=== PATIENT | male | born 1960 | race Caucasian/White ===

== ENCOUNTER 2018-07-27 16:50 | Inpatient (IN) | END 2018-07-30 16:55 | disposition home or self-care (01) | DRG 871 ==

== ENCOUNTER 2018-12-12 04:46 | Inpatient (IN) | payer MEDICARE, OTHER ==
[~2018-12-12] VITALS: Ht 182.9 cm; Wt 95.4 kg
[2018-12-12] VITALS (25 sets, daily range): BP systolic 108–151; BP diastolic 62–91; PULSE 65–84; RESP 22–24
[~2018-12-12 04:46] MED LIST: ADV25050 INHALATION; ALBU18HF INHALATION; ASPI-903 PO; ATEN50TA PO; ATOR10TA65 PO; GABA300C16 PO; HYDR-3672 PO; LEVO500T10 PO; LOSA50TA14 PO; OXYC40TA26 PO; PRED20TA PO
[2018-12-12] MEDS ORDERED: PROPOFOL 100 ML ONE (04:58)
[2018-12-12] MEDS ORDERED: HYDROmorphONE 0.5 MG/0.5 ML SYG IV STA (05:01)
--- NOTE | 2018-12-12 05:07 | ERD ---
ER Documentation Chief Complaint Chief Complaint sob HPI The patient is a 58-year-old male, he has acute dyspnea about 30 minutes prior to arrival. He is unable to provide any history, the history initially obtained from the conveyor console operator. He is unarousable, unable to protect his airway I was able to talk to the who came to the ER later. He is being treated for liposarcoma at [facility], had the second treatment about 3 weeks ago. He has not been sick. He woke up and had trouble breathing; therefore the called 911. He smokes and does use oxygen as needed at home Past medical history: Hypertension, dyslipidemia, COPD, liposarcoma Past surgical history: Port-A-Cath ROS All systems reviewed and are negative except as per history of present illness. Medications Home Meds Active Scripts Hydralazine Hcl* (Apresoline*) 50 Mg Tab, 50 MG PO Q8, #90 TAB Prov:TERA GREEN 07/30/18 Prednisone* (Prednisone*) 20 Mg Tab, 40 MG PO DAILY for 5 Days, TAB Prov:TERA GREEN 07/30/18 Levofloxacin* (Levofloxacin*) 500 Mg Tablet, 500 MG PO DAILY for 7 Days, TAB Prov:TERA GREEN 07/30/18 Reported Medications Atorvastatin Calcium (Atorvastatin Calcium) 10 Mg Tablet, 10 MG PO QHS, #30 TAB 07/27/18 Salmeterol Xinaf/Fluticasone* (Advair*) 250-50 Diskus Inhaler, 1 INH INHALATION BID, #1 INHALER 07/27/18 Albuterol Sulfate* (Ventolin HFA*) 18 Gm Hfa.aer.ad, 2 PUFF INHALATION Q6H PRN for WHEEZING AND SOB, #1 INHALER 07/27/18 Aspirin* (Aspirin* Chew) 81 Mg Tab.chew, 81 MG PO DAILY, TAB.CHEW 07/27/18 Gabapentin* (Gabapentin*) 300 Mg Capsule, 600 MG PO QID, #180 CAP 07/27/18 Oxycodone Hcl* (Oxycontin*) 40 Mg Tab.er.12h, 40 MG PO Q12 PRN for SEVERE PAIN LEVEL 7-10, TAB 07/27/18 Atenolol* (Atenolol*) 50 Mg Tablet, 50 MG PO BID, #30 TAB 07/27/18 Losartan Potassium* (Losartan Potassium*) 50 Mg Tablet, 50 MG PO BID, TAB 07/27/18 Allergies Allergies: Coded Allergies: ertapenem (Verified Allergy, Intermediate, rash, 07/27/18) oxacillin (Verified Allergy, Intermediate, rash, 07/27/18) sulfamethoxazole (Verified Allergy, Intermediate, rash, 07/27/18) trimethoprim (Verified Allergy, Intermediate, rash, 07/27/18) PMhx/Soc History of Surgery: Yes (LUNG SX AND 4 RIBS REMOVED) Anesthesia Reaction: No Hx Neurological Disorder: No Hx Respiratory Disorders: Yes (COPD) Hx Cardiac Disorders: Yes (HTN) Hx Psychiatric Problems: No Hx Miscellaneous Medical Probl: Yes (LYMPHOSARCOMA) Hx Alcohol Use: No Hx Tobacco Use: Yes (CIGARETTES 1 PACK/DAY 2 DAYS AGO) Physical Exam Vitals Vital Signs Date Temp Pulse Resp B/P (MAP) Pulse Ox O2 O2 Flow FiO2 Time Delivery Rate 12/12/18 79 13 211/124 100 Mechanical 05:40 (153) Ventilator 12/12/18 98.6 78 20 224/128 100 Mechanical 05:38 (160) Ventilator 12/12/18 120 20 100 100 05:10 12/12/18 98.6 120 16 255/142 100 Mechanical 05:07 (179) Ventilator 12/12/18 122 22 255/142 100 05:07 (179) Physical Exam Const: Acute respiratory distress. Head: Atraumatic. Eyes: Normal Conjunctiva. ENT: Normal External Ears, Nose and Mouth. Neck: Full range of motion. No meningismus. Resp: Tachypneic, clear to auscultation anterior and lateral Cardio: Regular rate and rhythm Abd: Soft, non distended, normal bowel sounds, non tender. Skin: No petechiae or rashes. Back: No midline or flank tenderness. Ext: No cyanosis, or edema. Neur: Unable to perform due to his condition Psych: Unable to perform due to his condition. Result Diagram: 12/12/18 0504 12/12/18 0504 Results 24 hrs Laboratory Tests Test 12/12/18 04:53 12/12/18 05:04 12/12/18 05:08 12/12/18 05:19 Bedside Glucose 154 mg/dL White Blood Count 9.2 10^3/ul Red Blood Count 5.07 10^6/ul Hemoglobin 12.4 g/dl Hematocrit 40.6 % Mean Corpuscular 80.1 fl Volume Mean Corpuscular 24.5 pg Hemoglobin Mean Corpuscular 30.5 g/dl Hemoglobin Concent Red Cell 17.1 % Distribution Width Platelet Count 211 10^3/UL Mean Platelet 9.5 fl Volume Immature 0.700 % Granulocytes % Neutrophils % 52.2 % Lymphocytes % 39.8 % Monocytes % 6.0 % Eosinophils % 1.1 % Basophils % 0.2 % Nucleated Red Blood 0.0 /100WBC Cells % Immature 0.060 10^3/ul Granulocytes # Neutrophils # 4.8 10^3/ul Lymphocytes # 3.7 10^3/ul Monocytes # 0.6 10^3/ul Eosinophils # 0.1 10^3/ul Basophils # 0.0 10^3/ul Nucleated Red Blood 0.0 10^3/ul Cells # Sodium Level 144 mmol/L Potassium Level 4.1 mmol/L Chloride Level 102 mmol/L Carbon Dioxide 32 mmol/L Level Anion Gap 10 Blood Urea Nitrogen 14 mg/dl Creatinine 0.93 mg/dl Est Glomerular > 60 mL/min Filtrat Rate mL/min Glucose Level 164 mg/dl Calcium Level 8.6 mg/dl Total Bilirubin 0.5 mg/dl Direct Bilirubin 0.00 mg/dl Indirect Bilirubin 0.5 mg/dl Aspartate Amino 117 IU/L Transf (AST/SGOT) Alanine 318 IU/L Aminotransferase (A LT/SGPT) Alkaline 80 IU/L Phosphatase Troponin I Pending Total Protein 7.3 g/dl Albumin 4.2 g/dl Globulin 3.10 g/dl Albumin/Globulin 1.35 Ratio POC Venous Lactate 1.2 mmol/L Urine Color YELLOW Urine Clarity CLEAR Urine pH 7.0 Urine Specific 1.009 [place] Urine Ketones NEGATIVE mg/dL Urine Nitrite NEGATIVE mg/dL Urine Bilirubin NEGATIVE mg/dL Urine Urobilinogen 1+ mg/dL Urine Leukocyte NEGATIVE Janay/ul Esterase Urine Microscopic 12 /HPF RBC Urine Microscopic 2 /HPF WBC Urine Hemoglobin 1+ mg/dL Urine Glucose NEGATIVE mg/dL Urine Total Protein 2+ mg/dl Current Medications Medications Dose Sig/Jing Start Time Status Last (Trade) Ordered Route PRN Stop Time Admin Dose Reason Admin Etomidate 30 mg ONCE ONCE 12/12/18 DC 12/12/18 (Amidate) IV 05:30 12/12/18 04:54 05:31 Rocuronium 80 mg ONCE ONCE 12/12/18 DC 12/12/18 [place] IV 05:30 12/12/18 04:54 (Zemuron) 05:31 Propofol 100 ml @ 0 TITRATE 12/12/18 DC 12/12/18 mls/hr ONCE IV 05:30 12/12/18 05:10 05:31 1 mg ONCE STAT 12/12/18 DC 12/12/18 Hydromorphone IV 05:01 12/12/18 05:20 HCl 05:05 (Dilaudid) Nicardipine 200 ml @ TITRATE IV 12/12/18 HCl 50 mls/hr 06:00 Piperacillin 100 ml @ ONCE ONCE 12/12/18 12/12/18 Sod/ 200 mls/hr IVPB 06:00 12/12/18 05:55 Tazobactam 06:29 Sod Vancomycin 250 ml @ ONCE ONCE 12/12/18 HCl 125 mls/hr IVPB 06:00 12/12/18 07:59 Procedures/[place] [id number] Radiology Main Line: [phone] DIAGNOSTIC IMAGING REPORT Patient: CARLTON CHAN : 1960 Age: 58 Sex: M MR #: [id number] DOS: 12/12/18 0501 Ordering MD: JULIA RAHMAN MD Location: E/R Room/Bed: PROCEDURE: XR Chest. CLINICAL INDICATION: Sepsis TECHNIQUE: AP Portable chest. COMPARISON: CHEST 07/27/2018 FINDINGS: The ET tube is 4 cm above the vick. The right port catheter is in the right atrium. The cardiomediastinal silhouette is enlarged and deviated to the right. The aorta is calcified and tortuous. Moderate right pleural effusion, and bilateral reticular nodular densities appear increased. No pneumothorax is identified. The osseous structures are intact. IMPRESSION: ET tube and right port catheter in place. Increase moderate right pleural effusion, basilar consolidation or atelectasis and bilateral nodular interstitial infiltrates. [facility] Physician Miguel Angel Date Time Electronically viewed and signed by Physician Miguel Angel on 12/12/2018 05:42 CS/ CC: JULIA RAHMAN MD [id number] brain CT/ chest CTA pending Endotracheal Intubation by me: Pre assessment performed. See preceding note for details. Pre-oxygenation performed with 100% oxygen RSI: Performed w/o complication or hypoxic events. Medications as ordered. Blade: MAC ET Tube: 7.5 cm Depth: 23 cm at the lip Intubation confirmed by colorimetric CO2, equal breath sounds, quiet over the stomach. MEDICAL MAKING DECISION: The patient is a 58-year-old male, presenting with acute respiratory failure, acute pneumonia, acute right pleural effusion. He was admitted intubated with any difficulty on first attempt. He was sedated with etomidate 30 mg IV and paralyzed with rocuronium 80 mg IV and intubated without any difficulty. He was treated with propofol drip for sedation, Dilaudid 1 mg IV for pain, NG tube, Shields, Zosyn IV and vancomycin IV for acute pneumonia. Blood pressure improved with the aforementioned treatment The differential diagnoses considered include but are not limited to intracranial pathology, pulmonary embolism, ptx, aspiration pneumonia, hypertensive encephalopathy Critical Care: Time: 35 minutes excluding all billable procedures. Treatments/Evaluations: Close monitoring and treatment of unstable vital s igns, cardiorespiratory, and neurologic status, while maintaining tight balance of fluid, respiratory, and cardiac interventions. Departure Diagnosis: Primary Impression: Respiratory failure, acute Additional Impressions: PNA (pneumonia) Pleural effusion, right Condition: Critical Comments I discussed the findings with the patient. I discussed the patient with his phys ician Dr Vick who was made aware of the lab, the treatment, the patient condition, pending chest CTA. The patient is admitted to ICU Disclaimer: Inadvertent spelling and grammatical errors are likely due to EHR/dictation software use and do not reflect on the overall quality of patient care. Also, please note that the electronic time recorded on this note does not necessarily reflect the actual time of the patient encounter. JULIA RAHMAN MD Dec 12, 2018 05:07
[2018-12-12] MEDS ORDERED: ROCURONIUM 50 MG INJ IV ONE (05:30)
[2018-12-12] MEDS ORDERED: PROPOFOL 100 ML IV ONE (05:30)
[2018-12-12] MEDS ORDERED: ETOMIDATE 20 MG INJ IV ONE (05:30)
[2018-12-12] MEDS: niCARdipine-NS 0.1MG/ML DRIP 200 ML IV SCH (05:58)
[2018-12-12] MEDS ORDERED: PIPER-TAZO 3.375 GM IV (PMX) 100 ML IVPB ONE (06:00)
[2018-12-12] MEDS ORDERED: VANCOMYCIN 1 GM (PMX) 250 ML IVPB ONE (06:00)
[2018-12-12] MEDS ORDERED: IOHEXOL 300MG/ML 150 ML BTL ONE (06:01)
[2018-12-12] MEDS ORDERED: SOD CHLORIDE 0.9% 100 ML ONE (06:01)
[2018-12-12] MEDS ORDERED: ETOMIDATE 20 MG INJ ONE (07:00)
[2018-12-12] MEDS: PROPOFOL 100 ML IV SCH ×5 (08:46→20:26)
--- NOTE | 2018-12-12 09:07 | CONS ---
Assessment/Plan Assessment/Plan Assessment/Plan (Daily) Chest x-ray showing bilateral pneumonia Patient is currently on AC of 24, tidal volume 500, PEEP of 5, 35% FiO2. Propofol at 50 mics per kilogram per minute. Assessment recommendations; 1. Patient admitted with hypoxemic and hypercapnic respiratory failure with bilateral pneumonia with possibility of underlying COPD as well. 2. History of liposarcoma with possibly relapse, currently on chemotherapy per record. 3. History of hypertension. Continue current supportive care. Continue current antibiotics. Add Protonix and Lovenox for GI and DVT prophylaxis respectively. Obtain follow-up chest x- ray 24 hours. We will start tube feeding. Prognosis is guarded. 40 minutes of critical care time was spent evaluating the patient. Consultation Date/Type/Reason Admit Date/Time Dec 12, 2018 at 06:34 Date of Consultation: Dec 12, 2018 Type of Consult Pulmonary/critical care Patient is a 58-year-old male who was brought into the hospital with shortness of breath. Patient was found to be in respiratory failure and had to be intubated by the ER physician. However no CPR was performed. By the time I saw him, patient is orally intubated and sedated. Did not appear to be in any distress. History has been obtained from medical records. Past medical history; 1. 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 It is unclear if the patient has had a recurrence. Apparently patient is currently on chemotherapy. 2. History of COPD 3. History of hypertension. Medications; reviewed. Allergies; as outlined above. Social history; history of smoking. Family history; not available. Occupational history; not available. Review of system; unable to be obtained. General exam; middle-aged male, orally intubated, sedated, currently in no distress. Date/Time of Note DATE: 12/12/18 TIME: 09:04 Past Medical History Home Meds Active Scripts Hydralazine Hcl* (Apresoline*) 50 Mg Tab, 50 MG PO Q8, #90 TAB Prov:TERA GREEN 07/30/18 Prednisone* (Prednisone*) 20 Mg Tab, 40 MG PO DAILY for 5 Days, TAB Prov:TERA GREEN 07/30/18 Levofloxacin* (Levofloxacin*) 500 Mg Tablet, 500 MG PO DAILY for 7 Days, TAB Prov:TERA GREEN 07/30/18 Reported Medications Atorvastatin Calcium (Atorvastatin Calcium) 10 Mg Tablet, 10 MG PO QHS, #30 TAB 07/27/18 Salmeterol Xinaf/Fluticasone* (Advair*) 250-50 Diskus Inhaler, 1 INH INHALATION BID, #1 INHALER 07/27/18 Albuterol Sulfate* (Ventolin HFA*) 18 Gm Hfa.aer.ad, 2 PUFF INHALATION Q6H PRN for WHEEZING AND SOB, #1 INHALER 07/27/18 Aspirin* (Aspirin* Chew) 81 Mg Tab.chew, 81 MG PO DAILY, TAB.CHEW 07/27/18 Gabapentin* (Gabapentin*) 300 Mg Capsule, 600 MG PO QID, #180 CAP 07/27/18 Oxycodone Hcl* (Oxycontin*) 40 Mg Tab.er.12h, 40 MG PO Q12 PRN for SEVERE PAIN LEVEL 7-10, TAB 07/27/18 Atenolol* (Atenolol*) 50 Mg Tablet, 50 MG PO BID, #30 TAB 07/27/18 Losartan Potassium* (Losartan Potassium*) 50 Mg Tablet, 50 MG PO BID, TAB 07/27/18 Medications Current Medications Nicardipine HCl 200 ml @ 50 mls/hr TITRATE IV ; Start 12/12/18 at 06:00 Fentanyl 100 ml @ 2.5 mls/hr TITRATE IV ; Start 12/12/18 at 08:30 Propofol 100 ml @ 2.864 mls/ hr Q12H IV Last administered on 12/12/18at 08:46; Admin Dose 28.635 MLS/HR; Start 12/12/18 at 09:00 Enoxaparin Sodium (Lovenox) 30 mg DAILY SC ; Start 12/12/18 at 09:00; Status UNV Pantoprazole (Protonix Iv) 40 mg DAILY@06 IV ; Start 12/13/18 at 06:00; Status UNV Allergies: Coded Allergies: ertapenem (Verified Allergy, Intermediate, rash, 07/27/18) oxacillin (Verified Allergy, Intermediate, rash, 07/27/18) sulfamethoxazole (Verified Allergy, Intermediate, rash, 07/27/18) trimethoprim (Verified Allergy, Intermediate, rash, 07/27/18) Social History Smoking Status: Current every day smoker Exam/Review of Systems Exam Vitals Vital Signs Date Temp Pulse Resp B/P (MAP) Pulse Ox O2 O2 Flow FiO2 Time Delivery Rate 12/12/18 35 08:30 12/12/18 98.4 67 24 114/64 100 Mechanical 08:30 (81) Ventilator Intake and Output 12/11/18 12/11/18 12/12/18 1515:00 23:00 07:00 IntakeIntake Total 100 ml BalanceBalance 100 ml Exam HEENT exam; supple neck, no JVD. No lymphadenopathy. Midline trachea. No thyromegaly. Orally intubated. Patient has fair dentition. Chest exam; diminished breath sounds bilaterally. S1-S2 audible, no murmurs. Regular rhythm. There is a well-healed right thoracotomy scar. Abdomen exam; soft, nondistended. No organomegaly. Bowel sounds audible. Extremity exam; no peripheral edema clubbing. Pulses 1+. 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 Results Result Diagram: 12/12/18 0504 12/12/18 0504 Results 24hrs Laboratory Tests Test 12/12/18 04:53 12/12/18 05:04 12/12/18 05:08 12/12/18 05:19 Bedside Glucose 154 White Blood Count 9.2 # Red Blood Count 5.07 Hemoglobin 12.4 L Hematocrit 40.6 L Mean Corpuscular 80.1 L Volume Mean Corpuscular 24.5 L Hemoglobin Mean Corpuscular 30.5 L Hemoglobin Concent Red Cell 17.1 H Distribution Width Platelet Count 211 Mean Platelet 9.5 Volume Immature 0.700 H Granulocytes % Neutrophils % 52.2 Lymphocytes % 39.8 Monocytes % 6.0 Eosinophils % 1.1 Basophils % 0.2 Nucleated Red 0.0 Blood Cells % Immature 0.060 H Granulocytes # Neutrophils # 4.8 Lymphocytes # 3.7 H Monocytes # 0.6 Eosinophils # 0.1 Basophils # 0.0 Nucleated Red 0.0 Blood Cells # Prothrombin Time 12.7 Prothrombin Time 1.0 Ratio INR International 0.94 Normalized Ratio Activated 29.[address] Time Sodium Level 144 Potassium Level 4.1 Chloride Level 102 Carbon Dioxide 32 H Level Anion Gap 10 Blood Urea 14 Nitrogen Creatinine 0.93 Est Glomerular > 60 Filtrat Rate mL/min Glucose Level 164 Calcium Level 8.6 Total Bilirubin 0.5 Direct Bilirubin 0.00 Indirect Bilirubin 0.5 Aspartate Amino 117 H Transf (AST/SGOT) Alanine 318 H Aminotransferase ( ALT/SGPT) Alkaline 80 Phosphatase Troponin I 0.031 Total Protein 7.3 Albumin 4.2 Globulin 3.10 Albumin/Globulin 1.35 Ratio POC Venous Lactate 1.2 Urine Color YELLOW Urine Clarity CLEAR Urine pH 7.0 Urine Specific 1.009 [place] Urine Ketones NEGATIVE Urine Nitrite NEGATIVE Urine Bilirubin NEGATIVE Urine Urobilinogen 1+ H Urine Leukocyte NEGATIVE Esterase Urine Microscopic 12 H RBC Urine Microscopic 2 WBC Urine Hemoglobin 1+ H Urine Glucose NEGATIVE Urine Total 2+ H Protein Test 12/12/18 05:40 Blood Gas Specimen Blood arterial Source Arterial Blood 12/12/2018 6:00:51 Date Drawn AM Arterial Blood pH 7.294 *L (Temp corrected) Arterial Blood 62.5 H pCO2 (Temp correct) Arterial Blood pO2 369.6 H (Temp corrected) Arterial Blood 29.6 H HCO3 Arterial Blood 1.9 Base Excess Arterial Blood 99.3 H Oxygen Saturation Adrián Test ACCEPTAB Arterial Blood Gas Right Radial Puncture Site Arterial 0.5 Blood Carboxyhemog lobin Arterial Blood 0.3 Methemoglobin Blood Gas A-a O2 280.9 H Differential Oxyhemoglobin 98.5 Percent Blood Gas 37.0 Temperature Blood Gas 20.0 Respiration Rate Blood Gas Actual 20 Respiration Rate Blood Gas Modality VENT - AC FiO2 100.0 Blood Gas Tidal 500.0 Volume Blood Gas Low PEEP 3.0 Setting Blood Gas Critical Akanksha RAHMAN MD Value Read Back Blood Gas Notified Whom Blood Gas Notified 12/12/2018 6:06:29 Time AM Medications Medication Current Medications Nicardipine HCl 200 ml @ 50 mls/hr TITRATE IV ; Start 12/12/18 at 06:00 Fentanyl 100 ml @ 2.5 mls/hr TITRATE IV ; Start 12/12/18 at 08:30 Propofol 100 ml @ 2.864 mls/ hr Q12H IV Last administered on 12/12/18at 08:46; Admin Dose 28.635 MLS/HR; Start 12/12/18 at 09:00 Enoxaparin Sodium (Lovenox) 30 mg DAILY SC ; Start 12/12/18 at 09:00; Status UNV Pantoprazole (Protonix Iv) 40 mg DAILY@06 IV ; Start 12/13/18 at 06:00; Status UNV QARNI,LAINEY Dec 12, 2018 09:07
[2018-12-12] MEDS: PANTOPRAZOLE 40 MG INJ IV SCH (10:55)
--- NOTE | 2018-12-12 11:09 | HP ---
Date/Time of Note Date/Time of Note DATE: 12/12/18 TIME: 09:43 Assessment/Plan VTE Prophylaxis SCD contraindicated: other Pharmacological prophylaxis: other Pharm contraindication: other Lines/Catheters IV Catheter Type (from Nrsg): mediport Central line still needed: Yes Urinary Cath still in place: Yes Reason Cath still needed: urinary retention Assessment/Plan Hospital Course PROCEDURE: XR Chest. CLINICAL INDICATION: Sepsis TECHNIQUE: AP Portable chest. COMPARISON: DR CHEST 07/27/2018 FINDINGS: The ET tube is 4 cm above the vick. The right port catheter is in the right atrium. The cardiomediastinal silhouette is enlarged and deviated to the right. The aorta is calcified and tortuous. Moderate right pleural effusion, and bilateral reticular nodular densities appear increased. No pneumothorax is identified. Th e osseous structures are intact. IMPRESSION: ET tube and right port catheter in place. Increase moderate right pleural effusion, basilar consolidation or atelectasis and bilateral nodular interstitial infiltrates. PROCEDURE: CT BRAIN WITHOUT CONTRAST CLINICAL INDICATION: 58-year-old male with altered level of consciousness. TECHNIQUE: The study was performed utilizing Spinal Integration VCT 64-slice CT scanner. Direct axial sections were obtained from the foramen magnum to the luciana gaudencio without the use of intravenous contrast material. Sagittal and coronal reformations were obtained. One or more of the following dose reduction techniques were utilized: automated exposure control, adjustment of the mA and/or kV according to patient's size or use of iterative reconstruction tech nique. DICOM images are available. The images were viewed on a PACS workstation. CTD/vol = 39.59 mGy; Total Exam DLP = 713.51 mGy.cm. COMPARISON: None. FINDINGS: The ventricles have a normal size, shape and position. There is no evidence for mass effect or midline shift. There are no intracranial areas of abnormal attenuation. There is no evidence for acute intra or extra-axial blood. The bony calvarium is intact. There is minimal mucosal thickening within the ethmoid air cells bilaterally. No air-fluid levels are noted. The mastoid air cells are without significant soft tissue. IMPRESSION: 1. The intracranial contents are unremarkable on this noncontrast CT scan of the brain. 2. Minimal mucosal thickening ethmoid air cells. Assessment/Plan -Respiratory failure, acute - admit to ICU - Pulmonary consult-Dr Gallego notified -see admission orders -PNA (pneumonia) -ID Consult-Dr Grayson notified -Pleural effusion, right - Pulmonary consult-Dr Gallego notified - Transaminitis -GI Consult- Dr Prekins notified - [facility] Allergies -Liposarcoma - Sp Chemo. 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 Total Critical care time spent 50 mins- Patient seen in collaboration with Jonathan James Result Diagram: 12/12/18 0504 12/12/18 0504 Results 24hrs Laboratory Tests Test 12/12/18 04:53 12/12/18 05:04 12/12/18 05:08 12/12/18 05:19 Bedside Glucose 154 White Blood Count 9.2 # Red Blood Count 5.07 Hemoglobin 12.4 L Hematocrit 40.6 L Mean Corpuscular 80.1 L Volume Mean Corpuscular 24.5 L Hemoglobin Mean Corpuscular 30.5 L Hemoglobin Concent Red Cell 17.1 H Distribution Width Platelet Count 211 Mean Platelet 9.5 Volume Immature 0.700 H Granulocytes % Neutrophils % 52.2 Lymphocytes % 39.8 Monocytes % 6.0 Eosinophils % 1.1 Basophils % 0.2 Nucleated Red 0.0 Blood Cells % Immature 0.060 H Granulocytes # Neutrophils # 4.8 Lymphocytes # 3.7 H Monocytes # 0.6 Eosinophils # 0.1 Basophils # 0.0 Nucleated Red 0.0 Blood Cells # Prothrombin Time 12.7 Prothrombin Time 1.0 Ratio INR International 0.94 Normalized Ratio Activated 29.[address] Time Sodium Level 144 Potassium Level 4.1 Chloride Level 102 Carbon Dioxide 32 H Level Anion Gap 10 Blood Urea 14 Nitrogen Creatinine 0.93 Est Glomerular > 60 Filtrat Rate mL/min Glucose Level 164 Calcium Level 8.6 Total Bilirubin 0.5 Direct Bilirubin 0.00 Indirect Bilirubin 0.5 Aspartate Amino 117 H Transf (AST/SGOT) Alanine 318 H Aminotransferase ( ALT/SGPT) Alkaline 80 Phosphatase Troponin I 0.031 Total Protein 7.3 Albumin 4.2 Globulin 3.10 Albumin/Globulin 1.35 Ratio POC Venous Lactate 1.2 Urine Color YELLOW Urine Clarity CLEAR Urine pH 7.0 Urine Specific 1.009 Belen Urine Ketones NEGATIVE Urine Nitrite NEGATIVE Urine Bilirubin NEGATIVE Urine Urobilinogen 1+ H Urine Leukocyte NEGATIVE Esterase Urine Microscopic 12 H RBC Urine Microscopic 2 WBC Urine Hemoglobin 1+ H Urine Glucose NEGATIVE Urine Total 2+ H Protein Test 12/12/18 05:40 Blood Gas Specimen Blood arterial Source Arterial Blood 12/12/2018 6:00:51 Date Drawn AM Arterial Blood pH 7.294 *L (Temp corrected) Arterial Blood 62.5 H pCO2 (Temp correct) Arterial Blood pO2 369.6 H (Temp corrected) Arterial Blood 29.6 H HCO3 Arterial Blood 1.9 Base Excess Arterial Blood 99.3 H Oxygen Saturation Adrián Test ACCEPTAB Arterial Blood Gas Right Radial Puncture Site Arterial 0.5 Blood Carboxyhemog lobin Arterial Blood 0.3 Methemoglobin Blood Gas A-a O2 280.9 H Differential Oxyhemoglobin 98.5 Percent Blood Gas 37.0 Temperature Blood Gas 20.0 Respiration Rate Blood Gas Actual 20 Respiration Rate Blood Gas Modality VENT - AC FiO2 100.0 Blood Gas Tidal 500.0 Volume Blood Gas Low PEEP 3.0 Setting Blood Gas Critical Akanksha RAHMAN MD Value Read Back Blood Gas Notified Whom Blood Gas Notified 12/12/2018 6:06:29 Time AM HPI/ROS Admit Date/Time Admit Date/Time Dec 12, 2018 at 06:34 ROS HPI The patient is a 58-year-old male with past history of Hypertension, dysl ipidemia, COPD, liposarcoma, Port-A-Cath placement for his chemotherapy. Patient is admitted with c/o dyspnea and as with respiratory failure. Patient was unable to keep his airway patent so was he intubated and admitted in ICU. Patient was seen in ICU , is at bed side who provided his history. Patient's stated that he is being treated for liposarcoma at [facility], had the second treatment about 3 weeks ago. He has not been sick. He woke up and had trouble breathing; therefore the called 911. He smokes and does use oxygen as needed at home. requested for patient to be transferred back to [facility]. Jonathan charge Nurse Lawrance/ case manger to transfer patient for his high level of c are requirement.Patient is admitted under Dr James for further treatment and evaluation. Plan of care dw staff and . ROS All systems reviewed and are negative except as per history of present illness. Allergies ertapenem (Verified Allergy, Intermediate, rash, 07/27/18) oxacillin (Verified Allergy, Intermediate, rash, 07/27/18) sulfamethoxazole (Verified Allergy, Intermediate, rash, 07/27/18) trimethoprim (Verified Allergy, Intermediate, rash, 07/27/18) Subjective hx not possible: pt non-verbal, pt critical PMH/Family/Social Past Medical History PMhx/Soc History of Surgery: Yes (LUNG SX AND 4 RIBS REMOVED) Anesthesia Reaction: No Hx Neurological Disorder: No Hx Respiratory Disorders: Yes (COPD) Hx Cardiac Disorders: Yes (HTN) Hx Psychiatric Problems: No Hx Miscellaneous Medical Probl: Yes (LYMPHOSARCOMA) Hx Alcohol Use: No Hx Tobacco Use: Yes (CIGARETTES 1 PACK/DAY 2 DAYS AGO) Medications Current Medications Nicardipine HCl 200 ml @ 50 mls/hr TITRATE IV ; Start 12/12/18 at 06:00 Fentanyl 100 ml @ 2.5 mls/hr TITRATE IV ; Start 12/12/18 at 08:30 Propofol 100 ml @ 2.864 mls/ hr Q12H IV Last administered on 12/12/18at 08:46; Admin Dose 28.635 MLS/HR; Start 12/12/18 at 09:00 Enoxaparin Sodium (Lovenox) 30 mg DAILY SC ; Start 12/12/18 at 09:00 Pantoprazole (Protonix Iv) 40 mg DAILY@06 IV ; Start 12/12/18 at 09:00 Coded Allergies: morphine (Verified Allergy, Severe, SWELLING, 12/14/18) ertapenem (Verified Allergy, Intermediate, rash, 12/14/18) hydralazine (Verified Allergy, Intermediate, hot flashes, nausea, headache, 12/14/18) oxacillin (Verified Allergy, Intermediate, rash, 12/14/18) sulfamethoxazole (Verified Allergy, Intermediate, rash, 12/14/18) trimethoprim (Verified Allergy, Intermediate, rash, 12/14/18) Past Surgical History Past Surgical History R thorax tumor resection and partial pneumonectomy 03/05/2018 R sided liposarcoma surgery 16 years ago Social History Smoking Status: Current every day smoker Exam/Review of Systems Vital Signs Vitals Vital Signs Date Temp Pulse Resp B/P (MAP) Pulse Ox O2 O2 Flow FiO2 Time Delivery Rate 12/12/18 35 08:30 12/12/18 98.4 67 24 114/64 100 Mechanical 08:30 (81) Ventilator Intake and Output 12/11/18 12/11/18 12/12/18 1515:00 23:00 07:00 IntakeIntake Total 100 ml BalanceBalance 100 ml Exam Constitutional: well developed, non-verbal, frail Psych: nl mood/affect Head: atraumatic Eyes: nl lids, nl sclera ENMT: nl external ears & nose Neck: other (ETtube intact) Respiratory: diminished breath sounds (bilaterally at bases.) Cardiovascular: nl pulses, other (s1s2) Gastrointestinal: soft Musculoskeletal: nl extremities to inspection Extremities: normal pulses Neurological: unresponsive Skin: nl MOI Apodaca Dec 12, 2018 10:07
[2018-12-12] MEDS: FENTAnyl (DRIP) 1000 mcg/100mL 100 ML IV SCH (11:10)
[2018-12-12] MEDS: ENOXAPARIN 30 MG/0.3 ML SYG SC SCH (11:13)
[2018-12-12] MEDS ORDERED: VANCOMYCIN IV PER PHARMACY XX SCH (13:00)
[2018-12-12] MEDS ORDERED: VANCOMYCIN 1 GM 250 ML IVPB SCH (13:30)
[2018-12-12] MEDS: CEFEPIME 1GM/50 ML (PMX) 50 ML IVPB SCH ×2 (14:51→21:00)
--- NOTE | 2018-12-12 17:17 | RADRPT ---
Echocardiogram Report [id number] : 1960 (58y 5m)Study Date: 12/12/2018 2:52:00 PM Gender: MAccession #: [id number] Tech: Preston Mancini [facility] Location: [address] Ref.Physician: JATIN NAVAS Height(Cm): BSA: Weight(Kg): Quality: Technically Difficult StudyAccount #: Procedures: Echocardiographic Report: Transthoracic echocardiogram with complete 2D, M-Mode, and doppler examination. Indications: Congestive Heart Failure. Measurements: 2D/M Mode Doppler Measurement Value Normal Range Measurement Value Normal Range LVIDd 2D 4.8 [ 4.2 - 5.8 ] cm JASMINE VTI 2.1 [ 2.0 - 4.0 ] cm2 LVIDs 2D 3.3 [ 2.5 - 4.0 ] cm AV Mean Leonard 1.3 [ 70.0 - 90.0 ] cm/sec LVPWd 2D 1.5 [ 0.6 - 1.0 ] cm AV Mean PG 8.0 [ 2.0 - 4.0 ] mmHg IVSd 2D 1.6 [ 0.6 - 1.0 ] cm AV VTI 31.7 cm AoR Diam 2D 2.8 [ 2.6 - 3.4 ] cm LVOT Mean Leonard 0.7 [ 60.0 - 80.0 ] cm/sec EDV 2D 110.0 [ 62.0 - 150.0 ] ml LVOT Mean PG 3.0 [ 1.0 - 3.0 ] mmHg ESV 2D 43.2 [ 21.0 - 61.0 ] ml LVOT Peak Leonard 1.2 [ 70.0 - 110.0 ] cm/sec EF 2D 60.7 [ 52.0 - 72.0 ] percent LVOT Peak PG 5.0 [ 2.0 - 6.0 ] mmHg LA Dimen 2D 5.3 [ 3.0 - 4.0 ] cm LVOT VTI 21.5 [ 20.0 - 30.0 ] cm LVOT Diam 2.0 [ 2.3 - 2.9 ] cm MV E Peak Leonard 0.8 [ 60.0 - 130.0 ] cm/sec MV A Peak Leonard 0.8 [ 100.0 - 120.0 ] cm/sec MV E/A 1.1 [ 0.8 - 1.5 ] ratio MV Decel Time 225 [ 104 - 258 ] msec Lat E` Leonard 0.1 [ 10.0 - 15.0 ] cm/sec Lateral E/E` 8.7 [ 1.0 - 2.0 ] ratio MV E/A 1.1 [ 0.8 - 1.5 ] ratio RA Pressure 3.0 mmHg Findings: Left Ventricle: Normal left ventricular systolic function. Normal left ventricular cavity size. Moderate concentric left ventricular hypertrophy. Ejection fraction is visually estimated at 55 %. Tissue Doppler/Mitral Doppler indices are consistent with impaired relaxation (Stage I diastolic dysfunction). Right Ventricle: Normal right ventricular size. Normal right ventricular systolic function. Left Atrium: There is severe enlargement of left atrium. Right Atrium: The right atrium is normal in size. Mitral Valve: Mild mitral leaflet calcification. Mild mitral annular calcification. Trace mitral regurgitation. Aortic Valve: Aortic sclerosis without significant stenosis. Tricuspid Valve: Normal appearance of the tricuspid valve. Unable to obtain RVSP due to minimal presence of tricuspid regurgitation. Pericardium: Normal pericardium with no significant pericardial effusion. Aorta: Normal aortic root. IVC: Normal size and normal respiratory collapse consistent with normal right atrial pressure. Conclusions: Normal left ventricular systolic function. Normal left ventricular cavity size. Moderate concentric left ventricular hypertrophy. Ejection fraction is visually estimated at 55 %. Tissue Doppler/Mitral Doppler indices are consistent with impaired relaxation (Stage I diastolic dysfunction). There is severe enlargement of left atrium. Mild mitral leaflet calcification. Mild mitral annular calcification. Trace mitral regurgitation. Normal appearance of the tricuspid valve. Unable to obtain RVSP due to minimal presence of tricuspid regurgitation. Electronically Signed By: Jatin Navas 2018-12-12 17:16:18 PDT
--- NOTE | 2018-12-12 17:42 | CONS ---
DATE OF ADMISSION: 12/12/2018 DATE OF CONSULTATION: 12/12/2018 TYPE OF CONSULTATION: Nephrology. REASON FOR CONSULTATION: Volume management. REQUESTING PHYSICIAN: Dr. Scooter James. HISTORY OF PRESENT ILLNESS: This is a 58-year-old male with a past medical history of liposarcoma. The patient is status post resection, currently on chemotherapy, history of COPD, who presents to [facility] with respiratory distress. The patient was previously admitted to [facility] in July. At that time, the patient was septic secondary to pneumonia. The patient during that hospital course had acute kidney injury with eventual resolution and normalizatio n of kidney function prior to discharge. At the time of discharge, the patient has been noted to hav e recurrence of his liposarcoma. He underwent resection and is currently receiving chemotherapy. Pr s last chemotherapy was approximately 1 week ago. The patient presented to [facility] in the last 24 hours after developing sudden respiratory distress. Upon arrival to the emergency room, the patient was subsequently intubated. A CT angio was performed, which showed evidence of a 5.9 cm mass in the posterior mediastinum, which is causing compression of the esophagus with resorpti on. It was resulting left lateral displacement. The patient was also placed on antibiotic therapy, IV fluids and admitted to intensive care unit. In terms of the patient's renal history, the patient previously had episode of acute kidney injury. Currently, the patient has normal renal function and has adequate urinary output. There has been no report of any hemoptysis, hematemesis or hematochezia. PAST MEDICAL HISTORY: History of liposarcoma. History of hypertension, COPD, dyslipidemia. PAST SURGICAL HISTORY: Status post right thoracic tumor resection in February of 2018. History of right leg sarcoma surgery 16 years ago. FAMILY HISTORY: No family history of kidney disease. MEDICATIONS: The patient's medications have been reviewed. ALLERGIES: NO KNOWN DRUG ALLERGIES. REVIEW OF SYSTEMS: Unable to do adequate review of systems. The patient is obtunded. Pertinent pos itives as obtained by reviewing medical records, speaking to hospital staff, stated in HPI, otherwise negative. PHYSICAL EXAMINATION: VITAL SIGNS: Blood pressure is 114/64, respirations 24, pulse 67, temperature 98.4. HEENT: Head is normocephalic. NECK: Supple. HEART: Has regular rate. LUNGS: Showed diminished breath sounds at base. ABDOMEN: Soft, nontender to palpation without rebound or guarding. EXTREMITIES: Negative for clubbing, cyanosis and no edema. DERMATOLOGIC: No rashes. MUSCULOSKELETAL: No joint effusions. NEUROLOGIC: Not examined as the patient is obtunded. The patient's medications have been reviewed. Imaging studies were reviewed. Laboratory studies wer e reviewed. Cultures have been reviewed. ASSESSMENT AND PLAN: This is a 58-year-old male who presents with: 1. History of acute kidney injury. The patient's renal function is currently within normal limits w ith adequate urinary output. We will monitor renal function closely as the patient was given contras t, we will monitor for any signs of contrast-associated nephropathy. Otherwise, we will continue cur rent treatment plan, supportive care, renally dose all meds. 2. Ventilator-dependent respiratory failure. Vent settings and ABG were reviewed. Etiology is like ly secondary to pneumonia, possible chronic obstructive pulmonary disease exacerbation. We will tyesha tor closely. Follow up with pulmonary. 3. Liposarcoma with relapse. The patient is currently on chemotherapy. Last chemotherapy was appro ximately 1 week ago. We will continue to monitor. Consider oncology evaluation. 4. Right pleural effusion, possibly due to pneumonia and liposarcoma. Continue to monitor. 5. History of hypertension. The patient is currently normotensive. Continue to monitor. 6. History of chronic obstructive pulmonary disease. Continue medical management. 7. Dyslipidemia. Continue current therapy. 8. Encephalopathy. Etiology is toxic metabolic. Continue to monitor. 9. Anemia, mild. Monitor H and H level. Thank you, Dr. James, for this interesting consult. It will be a pleasure to follow the patient w ith you throughout his hospital course. Dictated By: KIP LÓPEZ/DREAD Conf#: [id number] DID#: [id number]
[2018-12-12] MEDS: VANCOMYCIN HCL 1.5 GM in SOD CHLORIDE 0.9% 250 ML IVPB SCH (23:20)
[2018-12-13] VITALS (46 sets, daily range): BP systolic 99–201; BP diastolic 55–126; PULSE 71–115; RESP 15–29
[2018-12-13] MEDS: PROPOFOL 100 ML IV SCH ×7 (00:07→23:00)
--- NOTE | 2018-12-13 00:23 | CONS ---
DATE OF ADMISSION: 12/12/2018 DATE OF CONSULTATION: 12/12/2018 TYPE OF CONSULTATION: Infectious Disease. REASON FOR CONSULTATION: Antibiotic management. HISTORY OF PRESENT ILLNESS: The patient is a 58-year-old [place] male who developed acute dyspnea 30 minutes prior to his arrival in the emergency room. The patient is being treated for a li posarcoma at [facility] had a second treatment about 3 weeks ago. He has not been sick. He woke up with s hortness of breath and his called 911. He smokes and does use oxygen as needed at home. His pa st problems include: 1. Hypertension. 2. Dyslipidemia. 3. COPD. 4. Liposarcoma. 5. Status post Port-A-Cath placement. 6. Status post lung surgery with 4 ribs removed. As noted, the patient has lymphosarcoma. FAMILY HISTORY: Noncontributory. SOCIAL HISTORY: He smokes 1 pack of cigarettes every 2 days or half pack per day. ALLERGIES: ERTAPENEM, OXACILLIN and TRIMETHOPRIM sulfa. MEDICATIONS: Per chart. REVIEW OF SYSTEMS: As per HPI. PHYSICAL EXAMINATION: GENERAL: The patient is intubated on a respirator in the ICU. VITAL SIGNS: Stable. His blood pressure is elevated at 255/142. SKIN: Without generalized rash. HEENT: Within normal limits. NECK: He has an ET tube. NECK: Supple. LYMPH NODES: None palpable. CHEST: Decreased breath sounds at the bases. HEART: Without murmur or gallop. ABDOMEN: Soft, nontender, without organomegaly, splenomegaly or masses. EXTREMITIES: Without cyanosis, clubbing, or edema. RECTAL AND GENITAL: Deferred. NEUROLOGIC: The patient is sedated on a respirator. ANCILLARY LABORATORY DATA: White count 9.2, hemoglobin and hematocrit 12.4 and 40.6, platelet count 211,000. BUN and creatinine 14/0.93. His white count is 9.2 as noted, with 52% neutrophils. Urinal ysis is negative for nitrite and leukocyte esterase. The patient is on propofol, was started on vanc omycin and Zosyn. A chest x-ray shows ET tube and right Port-A-Cath in place, increased moderate rig ht pleural effusion with basilar consolidation or atelectasis and bilateral nodular interstitial infi ltrates. As noted, the patient was intubated in the emergency room. He has a Shields catheter now and NG tube and ET tube. We will probably get a PICC line or a triple lumen catheter. A CT scan of the chest and thorax CTA was done. CT angiogram: No evidence of pulmonary emboli. He has a 5.1 x 8.9 x 8.9 rounded mass, which is loculated in the posterior mediastinum and right paraspi nal region and several folds from the esophagus compressing the esophagus, resulting in leftward disp lacement. Mass is inseparable from the right wall of the thoracic aortic arch and descending thoraci c aorta and the anterior vertebral body of T4 through T6. Considerations include neoplasm loculated fluid collection, post-surgical right-sided volume loss with circumferential pleural thickening exten ding from the apex to the base, extensive right lung fibrosis and/or atelectasis involving the right lung base, post-surgical right rib deformities and healed fractures. IMPRESSION AND PLAN: The patient has lymphosarcoma, comes in now with shortness of breath and probab le pneumonitis, possibly aspiration pneumonia. He has an ET tube, NG tube, Shields catheter, and Port- A-Cath. The patient was seen in consultation by Dr. Gallego. According to Dr. Gallego, he had right tho racic liposarcoma status post resection 16 years ago. It is unclear if the patient had recurrence be cause he is currently on chemotherapy, so he must have. At this point, we will continue him on his c urrent antibiotic therapy. Await blood cultures. Probably should get a sputum culture. I will dict ate my findings to Dr. Bakre and Dr. Gallego. The patient is currently on vancomycin and cefepime. Dictated By: SONU WILHELM MD, JD/DREAD Conf#: [id number] DID#: [id number] CC: SONU WILHELM MD; DEBBIE BAKER MD;*End*
[2018-12-13] MEDS: FENTAnyl (DRIP) 1000 mcg/100mL 100 ML IV SCH ×2 (01:28→14:05)
--- NOTE | 2018-12-13 03:52 | CONS ---
DATE OF ADMISSION: 12/12/2018 DATE OF CONSULTATION: 12/12/2018 HISTORY OF PRESENT ILLNESS: The patient is a fortunate 58-year-old male with a history of liposarcom a comes to the emergency room for shortness of breath. The patient required intubation and subsequen benito got transferred to intensive care unit for further management. He was diagnosed to have liposarc tigre 16 years ago, then he had a recurrence of the tumor for which he had the surgery. Recently he wa s started on chemotherapy at [facility] the first chemotherapy last week. GI consult was called in for abn ormal LFT. No history of liver disease as per the . The patient is intubated, so the history of dysphagia cannot be obtained. No GI bleeding. PAST MEDICAL HISTORY: History of liposarcoma, hypertension, COPD, dyslipidemia. PAST SURGICAL HISTORY: Thoracic tumor resection in 02/2018. Right leg sarcoma surgery 16 years ago. FAMILY HISTORY: Nothing significant. MEDICATIONS: All reviewed. ALLERGIES: NO KNOWN DRUG ALLERGIES. SOCIAL HISTORY: Unable to do it because the patient is intubated. PHYSICAL EXAMINATION: VITALS: Stable. GENERAL: The patient is on vent. CARDIOVASCULAR: No murmur, gallop or click. LUNGS: Clear. ABDOMEN: Benign. EXTREMITIES: No edema. CENTRAL NERVOUS SYSTEM: Grossly within normal limits. LABORATORY DATA: CBC is stable. INR is stable. BNP is stable. His SGOT is 117, SGPT 318. IMPRESSION: 1. Recurrence of liposarcoma now in the posterior mediastinum pressing upon the esophagus and also a butting the thoracic aorta. 2. Chronic obstructive pulmonary disease. 3. Vent dependent respiratory failure. 4. Hypertension. 5. Dyslipidemia. 6. Transaminitis. PLAN: Plan is to continue present care. We will send for hepatitis panel, most probably this transa minitis might be related to chemo or fatty liver. Once the patient is extubated, we need to look int o his swallowing since the tumor is pressing upon the esophagus. He might have had difficulty in swa llowing. Dictated By: ALEXYS CHOI/NTS Conf#: [id number] DID#: [id number] CC: SONU WILHELM MD; DEBBIE BAKER MD;*EndCC*
[2018-12-13] MEDS: PANTOPRAZOLE 40 MG INJ IV SCH (06:03)
--- NOTE | 2018-12-13 08:24 | CONS ---
DATE OF ADMISSION: 12/12/2018 DATE OF CONSULTATION: 12/12/2018 REASON FOR CONSULTATION: Tachycardia, abnormal echocardiogram. REQUESTING PHYSICIAN: Scooter Baker MD HISTORY OF PRESENT ILLNESS: Mr. 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 said at night long d been in his usual state of health when he began to have respiratory distress. It progressed very q uickly. They have an O2 saturation monitor at home showing his sats in the 70s and therefore he was brought here to the Emergency Department at [facility]. At time of arrival, temper ature 98.6, blood pressure 224/128, pulse of 122, respiratory rate 20, satting 100%. The patient's l abs revealing white cell count 9.2, hemoglobin 12.4, platelet count of 211, sodium of 144, potassium 4.1, creatinine 0.9, BUN 14, troponin negative, AST 117, ALT 318. ABG with a pH of 7.294, PaO2 of 36 9, pCO2 of 62. UA borderline. The patient underwent a chest x-ray revealing ET tube and right Perm- A-Cath in place, moderate right pleural effusion, basilar consolidation, interstitial densities. The patient had a head CT revealing intracranial content unremarkable and a CTA that revealed no evidenc e of pulmonary embolism, a 5.1 x 8.9 x 8.9 rounded mass located in the posterior mediastinum, postsur gical right-sided volume loss, postsurgical right rib deformities and healed fractures. The patient' s electrocardiogram reveals sinus tach, rate 121, normal axis, normal intervals and nonspecific ST-T abnormalities. The patient subsequently required intubation and has been admitted to the ICU where h e remains at this time with stable blood pressure and heart rate. PAST MEDICAL HISTORY: As above in HPI. MEDICATIONS CURRENTLY IN HOSPITAL: 1. Lovenox subcutaneously daily. 2. Protonix 40 mg daily. 3. Fentanyl. ALLERGIES: 1. ERTAPENEM. 2. OXACILLIN. 3. BACTRIM. SOCIAL HISTORY: Positive tobacco, no EtOH or illicit drug use. FAMILY HISTORY: No history of sudden cardiac or early CAD. REVIEW OF SYSTEMS: As above in HPI. CONSTITUTIONAL: No fevers, chills. PULMONARY: ____ intubation. CARDIOVASCULAR: No current signs of chest pain. GASTROINTESTINAL: No vomiting. GENITOURINARY: No hematuria. MUSCULOSKELETAL: Degenerative joint disease. PSYCHIATRIC: No documented psych history. NEUROLOGIC: Sedated. PHYSICAL EXAMINATION: VITAL SIGNS: Temperature of 98.4, blood pressure 114/64, pulse 67, respiratory rate 24, satting 100% on 35%. GENERAL: The patient is intubated and sedated. NECK: JVP approximately 9 cm of water. CHEST: Upper airway ____ sounds. HEART: Regular rate and rhythm. Normal S1, S2, I/ systolic murmur. Nondisplaced PMI. ABDOMEN: Positive bowel sounds, soft. EXTREMITIES: No edema, 1+ pulses bilateral posterior tibial. LABORATORY DATA: Most recently from today. No further labs for my review at this time. IMAGING STUDIES: As above in HPI. No further images for review at this time. IMPRESSION: 1. Abnormal echocardiogram, assess for acute coronary syndrome. 2. Tachycardia consistent with sinus tachycardia on admission in the setting of respiratory distress , now improved. 3. Hypertensive urgency/emergency in the setting of respiratory distress, now improved. Assess intu bation. 4. Respiratory failure, status post intubation. 5. History of hypertension with currently well-controlled blood pressures. 6. Anemia. 7. Acidosis. RECOMMENDATIONS: 1. At this time, would maintain patient on ICU monitoring. 2. Continue the patient's intubation with weaning as possible. 3. Check a BNP to further assess patient's current volume status. Consider gentle Lasix diuresis. 4. Complete a rule out for myocardial infarction to ensure the patient's ____ are not the result of an acute coronary syndrome such as acute myocardial infarction. 5. Check a 2D echo to assess this patient's ejection fraction and wall motion for any major abnormal ities. 6. Check a fasting lipid panel for general risk stratification. Initiate Lipitor medication as nece ssary. 7. We will initiate patient on bronchodilators and consider steroids and antibiotics. Thank you for allowing me to take part in the care of this patient. I will continue to follow closel y with you, with recommendations to be made as the patient progresses through his inpatient hospital clinical course. Dictated By: JATIN MALONE/DREAD Conf#: [id number] DID#: [id number] CC: SCOOTER BAKER MD;*EndCC*
[2018-12-13] MEDS: CEFEPIME 1GM/50 ML (PMX) 50 ML IVPB SCH ×2 (08:57→21:46)
[2018-12-13] MEDS: ENOXAPARIN 30 MG/0.3 ML SYG SC SCH (09:03)
[2018-12-13] MEDS: hydrALAzine 20 MG INJ IV PRN ×2 (10:10→11:14)
--- NOTE | 2018-12-13 11:01 | CONS ---
Assessment/Plan Assessment/Plan Assessment/Plan (Daily) IMPRESSION: 1. 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 2. Chronic obstructive pulmonary disease. 3. Vent dependent respiratory failure. 4. Hypertension. 5. Dyslipidemia. 6. Transaminitis. Improving 7. Dysphagia secondary to mechanical compression of the esophagus by the tumor 8. Pancytopenia most probably related to chemotherapy Plan Monitor CBC Aspiration precaution when the patient is extubated and the patient started on a oral feeding Consultation Date/Type/Reason Admit Date/Time Dec 12, 2018 at 06:34 Initial Consult Date 12/12/18 Date/Time of Note DATE: 12/13/18 TIME: 10:59 24 HR Interval Summary Free Text/Dictation As per patient had a difficulty in swallowing before intubation Subjective hx not possible: pt non-verbal, pt critical status Exam/Review of Systems Exam Vitals Vital Signs Date Temp Pulse Resp B/P (MAP) Pulse Ox O2 O2 Flow FiO2 Time Delivery Rate 12/13/18 84 97 10:00 12/13/18 18 177/111 Mechanical 10:00 (133) Ventilator 12/13/18 30 08:00 12/13/18 98.9 08:00 Intake and Output 12/12/18 12/12/18 12/13/18 1515:00 23:00 07:00 IntakeIntake Total 234.080 ml 594.882 ml 558.810 ml OutputOutput Total 700 ml 590 ml 210 ml BalanceBalance -465.920 ml 4.882 ml 348.810 ml Constitutional: non-verbal Neck: No supple, No non-tender, No jvd, No bruits, No masses, No thyromegaly, No nuchal rigidity, No other Respiratory: other (Patient is on a ventilator) Gastrointestinal: soft Musculoskeletal: nl extremities to inspection, nl gait and stance Extremities: normal pulses Results Result Diagram: 12/13/18 0600 12/13/18 0600 Results 24hrs Laboratory Tests Test 12/13/18 06:00 White Blood Count 2.5 #L Red Blood Count 3.97 #L Hemoglobin 9.8 #L Hematocrit 30.3 #L Mean Corpuscular Volume 76.3 L Mean Corpuscular Hemoglobin 24.7 L Mean Corpuscular Hemoglobin Concent 32.3 Red Cell Distribution Width 17.5 H Platelet Count 128 #L Mean Platelet Volume 9.3 Immature Granulocytes % 0.400 Neutrophils % Segmented Neutrophils % (Manual) 54 Lymphocytes % Lymphocytes % (Manual) 43 Monocytes % Monocytes % (Manual) 2 Eosinophils % Basophils % Basophils % (Manual) 1 Nucleated Red Blood Cells % 0.0 Immature Granulocytes # 0.010 Neutrophils # Lymphocytes (Manual) 1.0 Lymphocytes # Monocytes # Monocytes # (Manual) 0.0 L Eosinophils # Basophils # Basophils # (Manual) 0.0 Nucleated Red Blood Cells # Platelet Estimate DECREASED Giant Platelets 1 H Polychromasia 1+ Poikilocytosis 2+ Anisocytosis 2+ Microcytosis 1+ Ovalocytes 2+ Sodium Level 141 Potassium Level 3.7 Chloride Level 105 Carbon Dioxide Level 27 Anion Gap 9 Blood Urea Nitrogen 15 Creatinine 1.15 Est Glomerular Filtrat Rate mL/min > 60 Glucose Level 89 # Calcium Level 8.4 Total Bilirubin 0.4 Direct Bilirubin 0.00 Indirect Bilirubin 0.4 Aspartate Amino Transf (AST/SGOT) 111 H Alanine Aminotransferase (ALT/SGPT) 237 H Alkaline Phosphatase 73 Creatine Kinase 46 Creatine Kinase Index 1.7 Creatinine Kinase MB (Mass) 0.77 Troponin I 0.062 Total Protein 5.8 #L Albumin 3.1 #L Globulin 2.70 Albumin/Globulin Ratio 1.14 Hepatitis B Surface Antigen NEGATIVE Hepatitis B Core Total Antibody NEGATIVE Hepatitis C Antibody NEGATIVE Medications Medication Current Medications Nicardipine HCl 200 ml @ 50 mls/hr TITRATE IV ; Start 12/12/18 at 06:00 Fentanyl 100 ml @ 2.5 mls/hr TITRATE IV Last administered on 12/13/18at 01:28; Admin Dose 10 MLS/HR; Start 12/12/18 at 08:30 Propofol 100 ml @ 2.864 mls/ hr Q12H IV Last administered on 12/13/18at 06:40; Admin Dose 28.635 MLS/HR; Start 12/12/18 at 09:00 Enoxaparin Sodium (Lovenox) 30 mg DAILY SC Last administered on 12/13/18at 09:03; Admin Dose 30 MG; Start 12/12/18 at 09:00 Pantoprazole (Protonix Iv) 40 mg DAILY@06 IV Last administered on 12/13/18at 06:03; Admin Dose 40 MG; Start 12/12/18 at 09:00 Vancomycin HCl (Vanco Iv Per Pharmacy) VANCOMYCIN PER PHARMACY PER PROTOCOL XX ; Start 12/12/18 at 13:00 Cefepime HCl 50 ml @ 100 mls/hr Q12 IVPB Last administered on 12/13/18at 08:57; Admin Dose 100 MLS/HR; Start 12/12/18 at 13:00 Hydralazine HCl (Apresoline) 10 mg Q4H PRN IV SBP>170 Last administered on 12/13/18at 10:10; Admin Dose 10 MG; Start 12/12/18 at 13:00 Vancomycin HCl 1.5 gm/Sodium Chloride 250 ml @ 83.333 mls/ hr Q12H IVPB Last administered on 12/12/18at 23:20; Admin Dose 83.333 MLS/HR; Start 12/12/18 at 23:30 ALEXYS BILL MD Dec 13, 2018 11:01
[2018-12-13] MEDS ORDERED: hydrALAzine 20 MG INJ IV ONE (11:30)
[2018-12-13] MEDS: VANCOMYCIN HCL 1.5 GM in SOD CHLORIDE 0.9% 250 ML IVPB SCH (11:40)
--- NOTE | 2018-12-13 11:48 | PN ---
Date/Time of Note Date/Time of Note DATE: 12/13/18 TIME: 11:47 Assessment/Plan VTE [place] [facility] [place]: 7 [place] [facility] [place] SCD contraindicated: other Pharmacological prophylaxis: LMWH Lines/Catheters IV [facility] port-a-cath Urinary Cath still in place: Yes Reason Cath still needed: skin wounds contaminated by urine Assessment/Plan Hospital Course -Respiratory failure, acute -PNA (pneumonia) -ID Consult-Dr Kenan brownofied -Pleural effusion, right - Pulmonary consult-Dr Gallego notified - Transaminitis -GI Consult- Dr Perkins notified -Liposarcoma - Sp Chemo -HTN -COPD -Dyslipidemia -Current every day smoker (1 pack per day) - provide smoking cessation when alert - Hx R thorax tumor resection and partial pneumonectomy 03/05/2018 - Hx R sided liposarcoma surgery 16 years ago Result Diagram: 12/13/18 0600 12/13/18 0600 Results 24hrs Laboratory Tests Test 12/13/18 06:00 White Blood Count 2.5 #L Red Blood Count 3.97 #L Hemoglobin 9.8 #L Hematocrit 30.3 #L Mean Corpuscular Volume 76.3 L Mean Corpuscular Hemoglobin 24.7 L Mean Corpuscular Hemoglobin Concent 32.3 Red Cell Distribution Width 17.5 H Platelet Count 128 #L Mean Platelet Volume 9.3 Immature Granulocytes % 0.400 Neutrophils % Segmented Neutrophils % (Manual) 54 Lymphocytes % Lymphocytes % (Manual) 43 Monocytes % Monocytes % (Manual) 2 Eosinophils % Basophils % Basophils % (Manual) 1 Nucleated Red Blood Cells % 0.0 Immature Granulocytes # 0.010 Neutrophils # Lymphocytes (Manual) 1.0 Lymphocytes # Monocytes # Monocytes # (Manual) 0.0 L Eosinophils # Basophils # Basophils # (Manual) 0.0 Nucleated Red Blood Cells # Platelet Estimate DECREASED Giant Platelets 1 H Polychromasia 1+ Poikilocytosis 2+ Anisocytosis 2+ Microcytosis 1+ Ovalocytes 2+ Sodium Level 141 Potassium Level 3.7 Chloride Level 105 Carbon Dioxide Level 27 Anion Gap 9 Blood Urea Nitrogen 15 Creatinine 1.15 Est Glomerular Filtrat Rate mL/min > 60 Glucose Level 89 # Calcium Level 8.4 Total Bilirubin 0.4 Direct Bilirubin 0.00 Indirect Bilirubin 0.4 Aspartate Amino Transf (AST/SGOT) 111 H Alanine Aminotransferase (ALT/SGPT) 237 H Alkaline Phosphatase 73 Creatine Kinase 46 Creatine Kinase Index 1.7 Creatinine Kinase MB (Mass) 0.77 Troponin I 0.062 Total Protein 5.8 #L Albumin 3.1 #L Globulin 2.70 Albumin/Globulin Ratio 1.14 Hepatitis B Surface Antigen NEGATIVE Hepatitis B Core Total Antibody NEGATIVE Hepatitis C Antibody NEGATIVE Subjective 24 Hr Interval Summary Free Text/Dictation Patient is on CPAP trial Exam/Review of Systems Exam Vitals Vital Signs Date Temp Pulse Resp B/P (MAP) Pulse Ox O2 O2 Flow FiO2 Time Delivery Rate 12/13/18 84 97 10:00 12/13/18 18 177/111 Mechanical 10:00 (133) Ventilator 12/13/18 30 08:00 12/13/18 98.9 08:00 Intake and Output 12/12/18 12/12/18 12/13/18 1515:00 23:00 07:00 IntakeIntake Total 234.080 ml 594.882 ml 558.810 ml OutputOutput Total 700 ml 590 ml 210 ml BalanceBalance -465.920 ml 4.882 ml 348.810 ml Constitutional: well developed Head: normocephalic, atraumatic Neck: supple Respiratory: diminished breath sounds Cardiovascular: regular rate and rhythm Gastrointestinal: soft, non-tender Extremities: normal pulses Results Results 24hrs Laboratory Tests Test 12/13/18 06:00 White Blood Count 2.5 #L Red Blood Count 3.97 #L Hemoglobin 9.8 #L Hematocrit 30.3 #L Mean Corpuscular Volume 76.3 L Mean Corpuscular Hemoglobin 24.7 L Mean Corpuscular Hemoglobin Concent 32.3 Red Cell Distribution Width 17.5 H Platelet Count 128 #L Mean Platelet Volume 9.3 Immature Granulocytes % 0.400 Neutrophils % Segmented Neutrophils % (Manual) 54 Lymphocytes % Lymphocytes % (Manual) 43 Monocytes % Monocytes % (Manual) 2 Eosinophils % Basophils % Basophils % (Manual) 1 Nucleated Red Blood Cells % 0.0 Immature Granulocytes # 0.010 Neutrophils # Lymphocytes (Manual) 1.0 Lymphocytes # Monocytes # Monocytes # (Manual) 0.0 L Eosinophils # Basophils # Basophils # (Manual) 0.0 Nucleated Red Blood Cells # Platelet Estimate DECREASED Giant Platelets 1 H Polychromasia 1+ Poikilocytosis 2+ Anisocytosis 2+ Microcytosis 1+ Ovalocytes 2+ Sodium Level 141 Potassium Level 3.7 Chloride Level 105 Carbon Dioxide Level 27 Anion Gap 9 Blood Urea Nitrogen 15 Creatinine 1.15 Est Glomerular Filtrat Rate mL/min > 60 Glucose Level 89 # Calcium Level 8.4 Total Bilirubin 0.4 Direct Bilirubin 0.00 Indirect Bilirubin 0.4 Aspartate Amino Transf (AST/SGOT) 111 H Alanine Aminotransferase (ALT/SGPT) 237 H Alkaline Phosphatase 73 Creatine Kinase 46 Creatine Kinase Index 1.7 Creatinine Kinase MB (Mass) 0.77 Troponin I 0.062 Total Protein 5.8 #L Albumin 3.1 #L Globulin 2.70 Albumin/Globulin Ratio 1.14 Hepatitis B Surface Antigen NEGATIVE Hepatitis B Core Total Antibody NEGATIVE Hepatitis C Antibody NEGATIVE Medications Medication Current Medications Nicardipine HCl 200 ml @ 50 mls/hr TITRATE IV ; Start 12/12/18 at 06:00 Fentanyl 100 ml @ 2.5 mls/hr TITRATE IV Last administered on 12/13/18at 01:28; Admin Dose 10 MLS/HR; Start 12/12/18 at 08:30 Propofol 100 ml @ 2.864 mls/ hr Q12H IV Last administered on 12/13/18at 06:40; Admin Dose 28.635 MLS/HR; Start 12/12/18 at 09:00 Enoxaparin Sodium (Lovenox) 30 mg DAILY SC Last administered on 12/13/18at 09:03; Admin Dose 30 MG; Start 12/12/18 at 09:00 Pantoprazole (Protonix Iv) 40 mg DAILY@06 IV Last administered on 12/13/18at 06:03; Admin Dose 40 MG; Start 12/12/18 at 09:00 Vancomycin HCl (Vanco Iv Per Pharmacy) VANCOMYCIN PER PHARMACY PER PROTOCOL XX ; Start 12/12/18 at 13:00 Cefepime HCl 50 ml @ 100 mls/hr Q12 IVPB Last administered on 12/13/18at 08:57; Admin Dose 100 MLS/HR; Start 12/12/18 at 13:00 Hydralazine HCl (Apresoline) 10 mg Q4H PRN IV SBP>170 Last administered on 12/13/18at 11:14; Admin Dose 10 MG; Start 12/12/18 at 13:00 Vancomycin HCl 1.5 gm/Sodium Chloride 250 ml @ 83.333 mls/ hr Q12H IVPB Last administered on 12/13/18at 11:40; Admin Dose 83.333 MLS/HR; Start 12/12/18 at 23:30 AIDA DE LA TORRE Dec 13, 2018 11:48
--- NOTE | 2018-12-13 12:16 | CONS ---
Consult Date/Type/Reason Admit Date/Time Dec 12, 2018 at 06:34 Initial Consult Date 12/12/18 Type of Consultation: Pulm/CCM Date/Time of Note DATE: 12/13/18 TIME: 12:09 Subjective No events overnight. Tolerating CPAP/PS. Objective Vitals Vital Signs Date Temp Pulse Resp B/P (MAP) Pulse Ox O2 O2 Flow FiO2 Time Delivery Rate 12/13/18 84 97 10:00 12/13/18 18 177/111 Mechanical 10:00 (133) Ventilator 12/13/18 30 08:00 12/13/18 98.9 08:00 Intake and Output 12/12/18 12/12/18 12/13/18 1414:59 22:59 06:59 IntakeIntake Total 202.945 ml 587.382 ml 559.080 ml OutputOutput Total 700 ml 540 ml 260 ml BalanceBalance -497.055 ml 47.382 ml 299.080 ml Exam HEENT: Neck supple; no JVD; no LAD; + ET tube CVS: RRR, S1 and S2 CHEST: Diffuse wheezing b/l ABD: Soft, NT, + BS EXT: No c/c/e Results/Medications Result Diagram: 12/13/18 0600 12/13/18 0600 Results 24 hrs Laboratory Tests Test 12/13/18 06:00 12/13/18 08:30 White Blood Count 2.5 #L Red Blood Count 3.97 #L Hemoglobin 9.8 #L Hematocrit 30.3 #L Mean Corpuscular Volume 76.3 L Mean Corpuscular Hemoglobin 24.7 L Mean Corpuscular Hemoglobin Concent 32.3 Red Cell Distribution Width 17.5 H Platelet Count 128 #L Mean Platelet Volume 9.3 Immature Granulocytes % 0.400 Neutrophils % Segmented Neutrophils % (Manual) 54 Lymphocytes % Lymphocytes % (Manual) 43 Monocytes % Monocytes % (Manual) 2 Eosinophils % Basophils % Basophils % (Manual) 1 Nucleated Red Blood Cells % 0.0 Immature Granulocytes # 0.010 Neutrophils # Lymphocytes (Manual) 1.0 Lymphocytes # Monocytes # Monocytes # (Manual) 0.0 L Eosinophils # Basophils # Basophils # (Manual) 0.0 Nucleated Red Blood Cells # Platelet Estimate DECREASED Giant Platelets 1 H Polychromasia 1+ Poikilocytosis 2+ Anisocytosis 2+ Microcytosis 1+ Ovalocytes 2+ Sodium Level 141 Potassium Level 3.7 Chloride Level 105 Carbon Dioxide Level 27 Anion Gap 9 Blood Urea Nitrogen 15 Creatinine 1.15 Est Glomerular Filtrat Rate mL/min > 60 Glucose Level 89 # Calcium Level 8.4 Total Bilirubin 0.4 Direct Bilirubin 0.00 Indirect Bilirubin 0.4 Aspartate Amino Transf (AST/SGOT) 111 H Alanine Aminotransferase (ALT/SGPT) 237 H Alkaline Phosphatase 73 Creatine Kinase 46 Creatine Kinase Index 1.7 Creatinine Kinase MB (Mass) 0.77 Troponin I 0.062 Total Protein 5.8 #L Albumin 3.1 #L Globulin 2.70 Albumin/Globulin Ratio 1.14 Hepatitis B Surface Antigen NEGATIVE Hepatitis B Core Total Antibody NEGATIVE Hepatitis C Antibody NEGATIVE Blood Gas Specimen Source Blood arterial Arterial Blood Date Drawn 12/13/2018 11:50:47 AM Arterial Blood pH (Temp corrected) 7.392 Arterial Blood pCO2 (Temp correct) 40.5 Arterial Blood pO2 (Temp corrected) 62.1 L Arterial Blood HCO3 24.1 Arterial Blood Base Excess -0.8 Arterial Blood Oxygen Saturation 90.9 L Adrián Test ACCEPTAB Arterial Blood Gas Puncture Site Right Radial Arterial Blood Carboxyhemoglobin 0.3 Arterial Blood Methemoglobin 0.2 Blood Gas A-a O2 Differential 104.2 H Oxyhemoglobin Percent 90.4 L Blood Gas Temperature 37.0 Blood Gas Actual Respiration Rate 20 Blood Gas Modality VENT - CPAP FiO2 30.0 Blood Gas Low PEEP Setting 5.0 Blood Gas Pressure Support 10 Blood Gas Notified Whom AH Blood Gas Notified Time 12/13/2018 12:02:14 PM Home Meds Active Scripts Hydralazine Hcl* (Apresoline*) 50 Mg Tab, 50 MG PO Q8, #90 TAB Prov:TERA GREEN 07/30/18 Prednisone* (Prednisone*) 20 Mg Tab, 40 MG PO DAILY for 5 Days, TAB Prov:TERA GREEN 07/30/18 Levofloxacin* (Levofloxacin*) 500 Mg Tablet, 500 MG PO DAILY for 7 Days, TAB Prov:TERA GREEN 07/30/18 Reported Medications Atorvastatin Calcium (Atorvastatin Calcium) 10 Mg Tablet, 10 MG PO QHS, #30 TAB 07/27/18 Salmeterol Xinaf/Fluticasone* (Advair*) 250-50 Diskus Inhaler, 1 INH INHALATION BID, #1 INHALER 07/27/18 Albuterol Sulfate* (Ventolin HFA*) 18 Gm Hfa.aer.ad, 2 PUFF INHALATION Q6H PRN for WHEEZING AND SOB, #1 INHALER 07/27/18 Aspirin* (Aspirin* Chew) 81 Mg Tab.chew, 81 MG PO DAILY, TAB.CHEW 07/27/18 Gabapentin* (Gabapentin*) 300 Mg Capsule, 600 MG PO QID, #180 CAP 07/27/18 Oxycodone Hcl* (Oxycontin*) 40 Mg Tab.er.12h, 40 MG PO Q12 PRN for SEVERE PAIN LEVEL 7-10, TAB 07/27/18 Atenolol* (Atenolol*) 50 Mg Tablet, 50 MG PO BID, #30 TAB 07/27/18 Losartan Potassium* (Losartan Potassium*) 50 Mg Tablet, 50 MG PO BID, TAB 07/27/18 Medications Current Medications Nicardipine HCl 200 ml @ 50 mls/hr TITRATE IV ; Start 12/12/18 at 06:00 Fentanyl 100 ml @ 2.5 mls/hr TITRATE IV Last administered on 12/13/18at 01:28; Admin Dose 10 MLS/HR; Start 12/12/18 at 08:30 Propofol 100 ml @ 2.864 mls/ hr Q12H IV Last administered on 12/13/18at 06:40; Admin Dose 28.635 MLS/HR; Start 12/12/18 at 09:00 Enoxaparin Sodium (Lovenox) 30 mg DAILY SC Last administered on 12/13/18at 09:03; Admin Dose 30 MG; Start 12/12/18 at 09:00 Pantoprazole (Protonix Iv) 40 mg DAILY@06 IV Last administered on 12/13/18at 06:03; Admin Dose 40 MG; Start 12/12/18 at 09:00 Vancomycin HCl (Vanco Iv Per Pharmacy) VANCOMYCIN PER PHARMACY PER PROTOCOL XX ; Start 12/12/18 at 13:00 Cefepime HCl 50 ml @ 100 mls/hr Q12 IVPB Last administered on 12/13/18at 08:57; Admin Dose 100 MLS/HR; Start 12/12/18 at 13:00 Hydralazine HCl (Apresoline) 10 mg Q4H PRN IV SBP>170 Last administered on 12/13/18at 11:14; Admin Dose 10 MG; Start 12/12/18 at 13:00 Vancomycin HCl 1.5 gm/Sodium Chloride 250 ml @ 83.333 mls/ hr Q12H IVPB Last administered on 12/13/18at 11:40; Admin Dose 83.333 MLS/HR; Start 12/12/18 at 23:30 Assessment/Plan Assessment/Plan (Daily) IMP: 1. Acute Hypoxemic and Hypercapnic Respiratory Failure--in a patient with a large posterior mediastinal tumor (liposarcoma). Etiology of resp failure likely related to a combination of proximal bronchial obstruction 2/2 tumor, COPD exacerbation +/- CHF (CT chest reviewed in detail) 2. Mediastinal Mass--Liposarcoma s/p chemotherapy at [facility] 3. Pancytopenia--2/2 chemo 4. HTN RECS: 1. I would not extubate the patient at this time as the etiology of his respiratory failure--which is likely multifactorial--has not been fully addressed. 2. Would initiate corticosteroids and bronchodilators 3. Gentle diuresis 4. Obtain ECHO 5. De-escalate abx; though reasonable to maintain coverage for COPD exacerbation/post-obstructive early pna 6. BP control Case d/w in detail 40 min cc time KRISH TUTTLE MD Dec 13, 2018 12:16
[2018-12-13] MEDS: IPRATROPIUM (HFA) 12.9 GM INHALER INH SCH ×3 (13:00→21:29)
[2018-12-13] MEDS ORDERED: ALBUTEROL/IPRATROPIUM (NEB) 3 ML AMP HHN SCH (13:00)
[2018-12-13] MEDS: ALBUTEROL HFA 8 GM INHALER INH SCH ×3 (13:33→21:29)
[2018-12-13] MEDS: FUROSEMIDE 20 MG INJ IV SCH (13:50)
[2018-12-13] MEDS: METHYLPREDNISOLONE 40 MG INJ IV SCH ×2 (13:50→21:45)
--- NOTE | 2018-12-13 14:25 | CONS ---
Assessment/Plan Assessment/Plan Hospital Course (Demo Recall) IMPRESSION: 1. Abnormal echocardiogram, assess for acute coronary syndrome.-neg trop x 2/NL EF with LVDD by echo this admit 2. Tachycardia consistent with sinus tachycardia on admission in the setting of respiratory distress, now improved. 3. Hypertensive urgency/emergency in the setting of respiratory distress, now improved. Assess intubation. 4. Respiratory failure, status post intubation. 5. History of hypertension with mainly reasonable BP with a single elevation 6. Anemia. 7. Acidosis. 8. BNP-increased Recc: -ICU -Agree with gentle lasix diuresis -Will folllow labile BP closely currently off of antihypertensives and if trends towards elevation would consider initiation of BB to improve diastolic filling time and systolic ejection -Continue abx's/steroids/bronchodilators -Wean vent as tolerated -Complete omid and send final troponin Consultation Date/Type/Reason Admit Date/Time Dec 12, 2018 at 06:34 Initial Consult Date 12/12/18 Type of Consult Cardiology Reason for Consultation increased BNP Requesting Provider: DEBBIE BAKER MD Date/Time of Note DATE: 12/13/18 TIME: 14:17 Exam/Review of Systems Vital Signs Vitals Vital Signs Date Temp Pulse Resp B/P (MAP) Pulse Ox O2 O2 Flow FiO2 Time Delivery Rate 12/13/18 30 12:10 12/13/18 114 12:00 12/13/18 97 10:00 12/13/18 18 177/111 Mechanical 10:00 (133) Ventilator 12/13/18 98.9 08:00 Intake and Output 12/12/18 12/12/18 12/13/18 1515:00 23:00 07:00 IntakeIntake Total 234.080 ml 594.882 ml 558.810 ml OutputOutput Total 700 ml 590 ml 210 ml BalanceBalance -465.920 ml 4.882 ml 348.810 ml Exam Exam Review of Systems: CONSTITUTIONAL: No fevers, chills. PULMONARY: intubated CARDIOVASCULAR: No obvious chest pain/palpitations GASTROINTESTINAL: No nausea/vomiting. GENITOURINARY: No hematuria/dysuria. MUSCULOSKELETAL: No myagias/arthalgias. PSYCHIATRIC: The patient denies depression. NEUROLOGIC: No weakness Constitutional: other (sedated) Psych: no complaints Head: normocephalic ENMT: intubated Neck: supple, jvd (9 cm water) Respiratory: diminished breath sounds Cardiovascular: regular rate and rhythm Gastrointestinal: soft, non-tender Musculoskeletal: muscle tone (normal) Extremities: edema (none) Neurological: other (sedated) Labs Result Diagram: 12/13/18 0600 12/13/18 0600 Results 24hrs Laboratory Tests Test 12/13/18 06:00 12/13/18 08:30 12/13/18 12:28 White Blood Count 2.5 #L Red Blood Count 3.97 #L Hemoglobin 9.8 #L Hematocrit 30.3 #L Mean Corpuscular Volume 76.3 L Mean Corpuscular Hemoglobin 24.7 L Mean Corpuscular 32.3 Hemoglobin Concent Red Cell Distribution Width 17.5 H Platelet Count 128 #L Mean Platelet Volume 9.3 Immature Granulocytes % 0.400 Neutrophils % Segmented Neutrophils 54 % (Manual) Lymphocytes % Lymphocytes % (Manual) 43 Monocytes % Monocytes % (Manual) 2 Eosinophils % Basophils % Basophils % (Manual) 1 Nucleated Red Blood Cells % 0.0 Immature Granulocytes # 0.010 Neutrophils # Lymphocytes (Manual) 1.0 Lymphocytes # Monocytes # Monocytes # (Manual) 0.0 L Eosinophils # Basophils # Basophils # (Manual) 0.0 Nucleated Red Blood Cells # Platelet Estimate DECREASED Giant Platelets 1 H Polychromasia 1+ Poikilocytosis 2+ Anisocytosis 2+ Microcytosis 1+ Ovalocytes 2+ Sodium Level 141 Potassium Level 3.7 Chloride Level 105 Carbon Dioxide Level 27 Anion Gap 9 Blood Urea Nitrogen 15 Creatinine 1.15 Est Glomerular Filtrat > 60 Rate mL/min Glucose Level 89 # Calcium Level 8.4 Total Bilirubin 0.4 Direct Bilirubin 0.00 Indirect Bilirubin 0.4 Aspartate Amino 111 H Transf (AST/SGOT) Alanine 237 H Aminotransferase (ALT/SGPT) Alkaline Phosphatase 73 Creatine Kinase 46 62 Creatine Kinase Index 1.7 Pending Creatinine Kinase MB (Mass) 0.77 Pending Troponin I 0.062 Pending Total Protein 5.8 #L Albumin 3.1 #L Globulin 2.70 Albumin/Globulin Ratio 1.14 Hepatitis B Surface Antigen NEGATIVE Hepatitis B Core NEGATIVE Total Antibody Hepatitis C Antibody NEGATIVE Blood Gas Specimen Source Blood arterial Arterial Blood Date Drawn 12/13/2018 11:50:47 AM Arterial Blood pH 7.392 (Temp corrected) Arterial Blood pCO2 40.5 (Temp correct) Arterial Blood pO2 62.1 L (Temp corrected) Arterial Blood HCO3 24.1 Arterial Blood Base Excess -0.8 Arterial Blood 90.9 L Oxygen Saturation Adrián Test ACCEPTAB Arterial Blood Gas Right Radial Puncture Site Arterial 0.3 Blood Carboxyhemoglobin Arterial Blood Methemoglobin 0.2 Blood Gas A-a O2 Differential 104.2 H Oxyhemoglobin Percent 90.4 L Blood Gas Temperature 37.0 Blood Gas Actual 20 Respiration Rate Blood Gas Modality VENT - CPAP FiO2 30.0 Blood Gas Low PEEP Setting 5.0 Blood Gas Pressure Support 10 Blood Gas Notified Whom Blood Gas Notified Time 12/13/2018 12:02:14 PM Medications Medications Current Medications Nicardipine HCl 200 ml @ 50 mls/hr TITRATE IV ; Start 12/12/18 at 06:00 Fentanyl 100 ml @ 2.5 mls/hr TITRATE IV Last administered on 12/13/18 14:05; Admin Dose 10 MLS/HR; Start 12/12/18 at 08:30 Propofol 100 ml @ 2.864 mls/ hr Q12H IV Last administered on 12/13/18 13:11; Admin Dose 28.635 MLS/HR; Start 12/12/18 at 09:00 Enoxaparin Sodium (Lovenox) 30 mg DAILY SC Last administered on 12/13/18 09:03; Admin Dose 30 MG; Start 12/12/18 at 09:00 Pantoprazole (Protonix Iv) 40 mg DAILY@06 IV Last administered on 12/13/18 06:03; Admin Dose 40 MG; Start 12/12/18 at 09:00 Vancomycin HCl (Vanco Iv Per Pharmacy) VANCOMYCIN PER PHARMACY PER PROTOCOL XX ; Start 12/12/18 at 13:00 Cefepime HCl 50 ml @ 100 mls/hr Q12 IVPB Last administered on 12/13/18 08:57; Admin Dose 100 MLS/HR; Start 12/12/18 at 13:00 Hydralazine HCl (Apresoline) 10 mg Q4H PRN IV SBP>170 Last administered on 12/13/18 11:14; Admin Dose 10 MG; Start 12/12/18 at 13:00 Vancomycin HCl 1.5 gm/Sodium Chloride 250 ml @ 83.333 mls/ hr Q12H IVPB Last administered on 4/6/19at 11:40; Admin Dose 83.333 MLS/HR; Start 12/12/18 at 23:30 Methylprednisolone Sodium Succinate (Solu-Medrol) 40 mg Q8 IV Last administered on 12/13/18 13:50; Admin Dose 40 MG; Start 12/13/18 at 14:00 Albuterol (Ventolin Hfa) 4 puff Q4HWA RESP THERAPY INH Last administered on 12/13/18 13:33; Admin Dose 4 PUFF; Start 12/13/18 at 13:00 Ipratropium [place] (Atrovent Hfa) 4 puff Q4HWA RESP THERAPY INH ; Start 12/13/18 at 13:00 Furosemide (Lasix) 20 mg DAILY IV Last administered on 12/13/18 13:50; Admin Dose 20 MG; Start 12/13/18 at 13:30 Miscellaneous Information (*Rx Drug Level Order Reminder*) VANCO TR LEVEL PRIOR... 2230 ONCE XX ; Start 12/13/18 at 22:30; Stop 12/13/18 at 22:31 JATIN DOBBS Dec 13, 2018 14:25
--- NOTE | 2018-12-13 15:27 | DS ---
Date/Time of Note Date/Time of Note DATE: 12/13/18 TIME: 15:27 Discharge Summary Admission/Discharge Info Admit Date/Time Dec 12, 2018 at 06:34 Discharge Date/Time 12/13/18 Discharge Diagnosis -Respiratory failure, acute -PNA (pneumonia) -ID Consult-Dr Kenan flood -Pleural effusion, right - Pulmonary consult-Dr Gallgeo notified - Transaminitis -GI Consult- Dr Perkins notified -Liposarcoma - Sp Chemo -HTN -COPD -Dyslipidemia -Current every day smoker (1 pack per day) - provide smoking cessation when alert - Hx R thorax tumor resection and partial pneumonectomy 03/05/2018 - Hx R sided liposarcoma surgery 16 years ago Patient Condition: Fair Consults Pulmonary Procedures intubation Hx of Present Illness Patient with liposarcoma comes in [facility] acute respiratory Distress. Hospital Course Patient with liposarcoma comes in [facility] acute respiratory Distress. Patient was admitted and treated with antibiotics but he continued to have respiratory distress. Patient is normally seen at [facility] and the case finishing machine adjuster worked on having the patient transfered. Once a bed was available, he was transferred for higher level of care. -Respiratory failure, acute -PNA (pneumonia) -ID Consult-Dr Kenan flood -Pleural effusion, right - Pulmonary consult-Dr Gallego notified - Transaminitis -GI Consult- Dr Perkins notified -Liposarcoma - Sp Chemo -HTN -COPD -Dyslipidemia -Current every day smoker (1 pack per day) - provide smoking cessation when alert - Hx R thorax tumor resection and partial pneumonectomy 03/05/2018 - Hx R sided liposarcoma surgery 16 years ago Home Meds Active Scripts Hydralazine Hcl* (Apresoline*) 50 Mg Tab, 50 MG PO Q8, #90 TAB Prov:TERA GREEN 07/30/18 Prednisone* (Prednisone*) 20 Mg Tab, 40 MG PO DAILY for 5 Days, TAB Prov:TERA GREEN 07/30/18 Levofloxacin* (Levofloxacin*) 500 Mg Tablet, 500 MG PO DAILY for 7 Days, TAB Prov:TERA GREEN 07/30/18 Reported Medications Atorvastatin Calcium (Atorvastatin Calcium) 10 Mg Tablet, 10 MG PO QHS, #30 TAB 07/27/18 Salmeterol Xinaf/Fluticasone* (Advair*) 250-50 Diskus Inhaler, 1 INH INHALATION BID, #1 INHALER 07/27/18 Albuterol Sulfate* (Ventolin HFA*) 18 Gm Hfa.aer.ad, 2 PUFF INHALATION Q6H PRN for WHEEZING AND SOB, #1 INHALER 07/27/18 Aspirin* (Aspirin* Chew) 81 Mg Tab.chew, 81 MG PO DAILY, TAB.CHEW 07/27/18 Gabapentin* (Gabapentin*) 300 Mg Capsule, 600 MG PO QID, #180 CAP 07/27/18 Oxycodone Hcl* (Oxycontin*) 40 Mg Tab.er.12h, 40 MG PO Q12 PRN for SEVERE PAIN LEVEL 7-10, TAB 07/27/18 Atenolol* (Atenolol*) 50 Mg Tablet, 50 MG PO BID, #30 TAB 07/27/18 Losartan Potassium* (Losartan Potassium*) 50 Mg Tablet, 50 MG PO BID, TAB 07/27/18 Primary Care Provider Not On Staff Doctor Pending Labs Laboratory Tests Test 12/13/18 06:00 12/13/18 08:30 12/13/18 12:28 White Blood Count 2.5 10^3/ul (4.8-10.8) Red Blood Count 3.97 10^6/ul (4.70-6.10) Hemoglobin 9.8 g/dl (14.0-18.0) Hematocrit 30.3 % (42.0-52.0) Mean Corpuscular 76.3 Volume fl (82.0-101.0) Mean Corpuscular 24.7 pg (29.0-33.0) Hemoglobin Mean Corpuscular 32.3 Hemoglobin Concent g/dl (32.0-37.0) Red Cell 17.5 % (11.5-14.5) Distribution Width Platelet Count 128 10^3/UL (140-415) Mean Platelet 9.3 fl (7.4-10.4) Volume Immature 0.400 Granulocytes % % (0.001-0.429) Neutrophils % % (39.0-77.0) Segmented 54 % (39-77) Neutrophils % (Manual) Lymphocytes % % (15.0-51.0) Lymphocytes % 43 % (15-51) (Manual) Monocytes % % (0.0-11.0) Monocytes % 2 % (0-11) (Manual) Eosinophils % % (0.0-7.0) Basophils % % (0.0-2.0) Basophils % 1 % (0-2) (Manual) Nucleated Red Blood 0.0 Cells % /100WBC (0.0-0.0) Immature 0.010 Granulocytes # 10^3/ul (0.0-0.031) Neutrophils # 10^3/ul (1.6-7.5) Lymphocytes 1.0 (Manual) 10^3/ul (0.8-2.9) Lymphocytes # 10^3/ul (0.8-2.9) Monocytes # 10^3/ul (0.3-0.9) Monocytes # 0.0 (Manual) 10^3/ul (0.3-0.9) Eosinophils # 10^3/ul (0.0-0.5) Basophils # 10^3/ul (0.0-0.1) Basophils # 0.0 (Manual) 10^3/ul (0.0-0.0) Nucleated Red Blood 10^3/ul (0.0-0.0) Cells # Platelet Estimate DECREASED Giant Platelets 1 % (0-0) Polychromasia 1+ (0-0) Poikilocytosis 2+ (0-0) Anisocytosis 2+ (0-0) Microcytosis 1+ (0-0) Ovalocytes 2+ (0-0) Sodium Level 141 mmol/L (135-144) Potassium Level 3.7 mmol/L (3.5-5.1) Chloride Level 105 mmol/L (97-110) Carbon Dioxide 27 mmol/L (21-31) Level Anion Gap 9 (5-13) Blood Urea 15 mg/dl (7-20) Nitrogen Creatinine 1.15 mg/dl (0.61-1.24) Est Glomerular > 60 mL/min (>60) Filtrat Rate mL/min Glucose Level 89 mg/dl (70-220) Calcium Level 8.4 mg/dl (8.4-10.2) Total Bilirubin 0.4 mg/dl (0.2-1.3) Direct Bilirubin 0.00 mg/dl (0.00-0.20) Indirect Bilirubin 0.4 mg/dl (0-1.1) Aspartate Amino 111 IU/L (15-46) Transf (AST/SGOT) Alanine 237 IU/L (13-69) Aminotransferase (A LT/SGPT) Alkaline 73 IU/L (42-121) Phosphatase Creatine Kinase 46 IU/L (23-200) 62 IU/L (23-200) Creatine Kinase 1.7 1.7 Index Creatinine Kinase 0.77 1.08 MB (Mass) ng/ml (0.0-2.4) ng/ml (0.0-2.4) Troponin I 0.062 0.040 ng/ml (0.000-0.120) ng/ml (0.000-0.120 ) Total Protein 5.8 g/dl (6.1-8.1) Albumin 3.1 g/dl (3.3-4.9) Globulin 2.70 g/dl (1.3-3.2) Albumin/Globulin 1.14 Ratio Hepatitis B Surface NEGATIVE (NEGATIVE) Antigen Hepatitis B Core NEGATIVE (NEGATIVE) Total Antibody Hepatitis C NEGATIVE (NEGATIVE) Antibody Blood Gas Specimen Blood arterial Source Arterial Blood Date 12/13/2018 11:50:47 Drawn AM Arterial Blood pH 7.392 (7.350-7.450 (Temp corrected) ) Arterial Blood pCO2 40.5 mmhg (35-45) (Temp correct) Arterial Blood pO2 62.1 (Temp corrected) mmHG (80-100.0) Arterial Blood 24.1 HCO3 mmol/L (22.0-26.0) Arterial Blood Base -0.8 Excess mmol/L (-3.0-3) Arterial Blood 90.9 Oxygen Saturation mmHG (95.0-98.0) Adrián Test ACCEPTAB Arterial Blood Gas Right Radial Puncture Site Arterial 0.3 % (0.0-3.0) Blood Carboxyhemogl obin Arterial Blood 0.2 % (0.0-1.5) Methemoglobin Blood Gas A-a O2 104.2 Differential mmHg (7.0-24.0) Oxyhemoglobin 90.4 % (93.0-99.0) Percent Blood Gas 37.0 C Temperature Blood Gas Actual 20 Respiration Rate Blood Gas Modality VENT - CPAP FiO2 30.0 % Blood Gas Low PEEP 5.0 cmH2O Setting Blood Gas Pressure 10 Support Blood Gas Notified Whom Blood Gas Notified 12/13/2018 12:02:14 Time PM AIDA DE LA TRORE Apr 6, 2019 15:27
--- NOTE | 2018-12-13 15:45 | CONS ---
Assessment/Plan Assessment/Plan Hospital Course (Demo Recall) Patient remains intubated sedated in no distress had been afebrile with a T-max yesterday 100.5 T-current 98.9 WBC 2.5 H&H 9.8 and 30.3 platelets 128 BUN 15 creatinine 1.15 AST 111 ALT 237 alk phos 73 Microbiology: Blood culture growing gram-positive cocci in pairs and clusters [address] set urine culture negative CT of the chest and thorax revealed no evidence of pulmonary embolism. Please see full report Indwelling: Endotracheal tube NG tube right chest Port-A-Cath, Shields catheter Allergies ertapenem amoxicillin and sulfa Antimicrobials: Vancomycin cefepime Physical examination: This is a well-nourished well-developed middle-aged English man who is intubated sedated in no distress. Head atraumatic normocephalic sclera nonicteric. Neck is supple. Chest rise symmetrical, breath sounds diminished bases. Heart: S1-S2. Abdomen soft bowel sounds present extremities without cyanosis Assessment: 1. Acute hypoxemic respiratory failure secondary to large posterior mediastinal tumor, rule out aspiration 2. Bacteremia, rule out line sepsis 3. Mediastinal mass/liposarcoma, status post chemotherapy at [facility] 4. Hypertension 5. Pancytopenia Plan: Patient is hemodynamically stable, pending 2D echo, pending final cultures, we will will repeat blood cultures from Port-A-Cath and continue him on current antibiotics for now, follow pulmonary and GI recommendations Consultation Date/Type/Reason Admit Date/Time Dec 12, 2018 at 06:34 Initial Consult Date 12/12/18 Type of Consult id Requesting Provider: DEBBIE BAKER MD Date/Time of Note DATE: 12/13/18 TIME: 15:45 Exam/Review of Systems Exam Vitals Vital Signs Date Temp Pulse Resp B/P (MAP) Pulse Ox O2 O2 Flow FiO2 Time Delivery Rate 12/13/18 30 12:10 12/13/18 114 12:00 12/13/18 97 10:00 12/13/18 18 177/111 Mechanical 10:00 (133) Ventilator 12/13/18 98.9 08:00 Intake and Output 12/12/18 12/12/18 12/13/18 1515:00 23:00 07:00 IntakeIntake Total 234.080 ml 594.882 ml 558.810 ml OutputOutput Total 700 ml 590 ml 210 ml BalanceBalance -465.920 ml 4.882 ml 348.810 ml Results Result Diagram: 12/13/18 0600 12/13/18 0600 Results 24hrs Laboratory Tests Test 12/13/18 06:00 12/13/18 08:30 12/13/18 12:28 White Blood Count 2.5 #L Red Blood Count 3.97 #L Hemoglobin 9.8 #L Hematocrit 30.3 #L Mean Corpuscular Volume 76.3 L Mean Corpuscular Hemoglobin 24.7 L Mean Corpuscular 32.3 Hemoglobin Concent Red Cell Distribution Width 17.5 H Platelet Count 128 #L Mean Platelet Volume 9.3 Immature Granulocytes % 0.400 Neutrophils % Segmented Neutrophils 54 % (Manual) Lymphocytes % Lymphocytes % (Manual) 43 Monocytes % Monocytes % (Manual) 2 Eosinophils % Basophils % Basophils % (Manual) 1 Nucleated Red Blood Cells % 0.0 Immature Granulocytes # 0.010 Neutrophils # Lymphocytes (Manual) 1.0 Lymphocytes # Monocytes # Monocytes # (Manual) 0.0 L Eosinophils # Basophils # Basophils # (Manual) 0.0 Nucleated Red Blood Cells # Platelet Estimate DECREASED Giant Platelets 1 H Polychromasia 1+ Poikilocytosis 2+ Anisocytosis 2+ Microcytosis 1+ Ovalocytes 2+ Sodium Level 141 Potassium Level 3.7 Chloride Level 105 Carbon Dioxide Level 27 Anion Gap 9 Blood Urea Nitrogen 15 Creatinine 1.15 Est Glomerular Filtrat > 60 Rate mL/min Glucose Level 89 # Calcium Level 8.4 Total Bilirubin 0.4 Direct Bilirubin 0.00 Indirect Bilirubin 0.4 Aspartate Amino 111 H Transf (AST/SGOT) Alanine 237 H Aminotransferase (ALT/SGPT) Alkaline Phosphatase 73 Creatine Kinase 46 62 Creatine Kinase Index 1.7 1.7 Creatinine Kinase MB (Mass) 0.77 1.08 Troponin I 0.062 0.040 Total Protein 5.8 #L Albumin 3.1 #L Globulin 2.70 Albumin/Globulin Ratio 1.14 Hepatitis B Surface Antigen NEGATIVE Hepatitis B Core NEGATIVE Total Antibody Hepatitis C Antibody NEGATIVE Blood Gas Specimen Source Blood arterial Arterial Blood Date Drawn 12/13/2018 11:50:47 AM Arterial Blood pH 7.392 (Temp corrected) Arterial Blood pCO2 40.5 (Temp correct) Arterial Blood pO2 62.1 L (Temp corrected) Arterial Blood HCO3 24.1 Arterial Blood Base Excess -0.8 Arterial Blood 90.9 L Oxygen Saturation Adrián Test ACCEPTAB Arterial Blood Gas Right Radial Puncture Site Arterial 0.3 Blood Carboxyhemoglobin Arterial Blood Methemoglobin 0.2 Blood Gas A-a O2 Differential 104.2 H Oxyhemoglobin Percent 90.4 L Blood Gas Temperature 37.0 Blood Gas Actual 20 Respiration Rate Blood Gas Modality VENT - CPAP FiO2 30.0 Blood Gas Low PEEP Setting 5.0 Blood Gas Pressure Support 10 Blood Gas Notified Whom Blood Gas Notified Time 12/13/2018 12:02:14 PM Medications Medication Current Medications Nicardipine HCl 200 ml @ 50 mls/hr TITRATE IV ; Start 12/12/18 at 06:00 Fentanyl 100 ml @ 2.5 mls/hr TITRATE IV Last administered on 12/13/18 14:05; Admin Dose 10 MLS/HR; Start 12/12/18 at 08:30 Propofol 100 ml @ 2.864 mls/ hr Q12H IV Last administered on 12/13/18 13:11; Admin Dose 28.635 MLS/HR; Start 12/12/18 at 09:00 Enoxaparin Sodium (Lovenox) 30 mg DAILY SC Last administered on 12/13/18 09:03; Admin Dose 30 MG; Start 12/12/18 at 09:00 Pantoprazole (Protonix Iv) 40 mg DAILY@06 IV Last administered on 12/13/18 06:03; Admin Dose 40 MG; Start 12/12/18 at 09:00 Vancomycin HCl (Vanco Iv Per Pharmacy) VANCOMYCIN PER PHARMACY PER PROTOCOL XX ; Start 12/12/18 at 13:00 Cefepime HCl 50 ml @ 100 mls/hr Q12 IVPB Last administered on 12/13/18 08:57; Admin Dose 100 MLS/HR; Start 12/12/18 at 13:00 Hydralazine HCl (Apresoline) 10 mg Q4H PRN IV SBP>170 Last administered on 12/13/18 11:14; Admin Dose 10 MG; Start 12/12/18 at 13:00 Vancomycin HCl 1.5 gm/Sodium Chloride 250 ml @ 83.333 mls/ hr Q12H IVPB Last administered on 12/13/18 11:40; Admin Dose 83.333 MLS/HR; Start 12/12/18 at 23:30 Methylprednisolone Sodium Succinate (Solu-Medrol) 40 mg Q8 IV Last administered on 12/13/18at 13:50; Admin Dose 40 MG; Start 12/13/18 at 14:00 Albuterol (Ventolin Hfa) 4 puff Q4HWA RESP THERAPY INH Last administered on 12/13/18at 13:33; Admin Dose 4 PUFF; Start 12/13/18 at 13:00 Ipratropium [place] (Atrovent Hfa) 4 puff Q4HWA RESP THERAPY INH ; Start 12/13/18 at 13:00 Furosemide (Lasix) 20 mg DAILY IV Last administered on 12/13/18at 13:50; Admin Dose 20 MG; Start 12/13/18 at 13:30 Miscellaneous Information (*Rx Drug Level Order Reminder*) VANCO TR LEVEL PRIOR... 2230 ONCE XX ; Start 12/13/18 at 22:30; Stop 12/13/18 at 22:31 MAYELA TUCKER NP Dec 13, 2018 15:45
[2018-12-14] VITALS (49 sets, daily range): BP systolic 107–177; BP diastolic 60–99; PULSE 74–115; RESP 10–28; Ht 182.9 cm; Wt 95.4 kg
[2018-12-14] MEDS: FENTAnyl (DRIP) 1000 mcg/100mL 100 ML IV SCH ×2 (01:25→10:51)
[2018-12-14] MEDS: PROPOFOL 100 ML IV SCH ×4 (02:24→12:19)
[2018-12-14] MEDS: VANCOMYCIN 1 GM 250 ML IVPB SCH ×2 (04:21→15:51)
[2018-12-14] MEDS: PANTOPRAZOLE 40 MG INJ IV SCH (05:20)
[2018-12-14] MEDS: METHYLPREDNISOLONE 40 MG INJ IV SCH ×3 (05:20→22:07)
[2018-12-14] MEDS: FUROSEMIDE 20 MG INJ IV SCH (08:48)
[2018-12-14] MEDS: CEFEPIME 1GM/50 ML (PMX) 50 ML IVPB SCH ×2 (08:48→20:49)
[2018-12-14] MEDS: ENOXAPARIN 30 MG/0.3 ML SYG SC SCH (08:50)
[2018-12-14] MEDS: IPRATROPIUM (HFA) 12.9 GM INHALER INH SCH ×2 (09:13→12:36)
[2018-12-14] MEDS: ALBUTEROL HFA 8 GM INHALER INH SCH ×2 (09:13→12:36)
--- NOTE | 2018-12-14 11:46 | PN ---
Date/Time of Note Date/Time of Note DATE: 12/14/18 TIME: 11:45 Assessment/Plan VTE Prophylaxis Risk score (from Nsg)>0 risk: 5 SCD applied (from Nsg): Yes Pharmacological prophylaxis: LMWH Lines/Catheters IV Catheter Type (from Nrsg): Portacath Urinary Cath still in place: Yes Reason Cath still needed: skin wounds contaminated by urine Assessment/Plan Hospital Course Patient with liposarcoma comes in [facility] acute respiratory Distress. Patient was admitted and treated with antibiotics but he continued to have respiratory distress. Patient is normally seen at [facility] and the director of casework services worked on having the patient transfered. Once a bed was available, he was transferred for higher level of care. -Respiratory failure, acute -PNA (pneumonia) -ID Consult-Dr Kenan talamantesed -Pleural effusion, right - Pulmonary consult-Dr Gallego notified - Transaminitis -GI Consult- Dr Perkins notified -Liposarcoma - Sp Chemo -HTN -COPD -Dyslipidemia -Current every day smoker (1 pack per day) - provide smoking cessation when alert - Hx R thorax tumor resection and partial pneumonectomy 03/05/2018 - Hx R sided liposarcoma surgery 16 years ago Result Diagram: 12/14/18 0435 12/14/18 0431 Results 24hrs Laboratory Tests Test 12/13/18 12:28 12/13/18 17:19 12/13/18 22:32 12/14/18 04:31 Creatine Kinase 62 48 Creatine Kinase 1.7 2.1 Index Creatinine Kinase 1.08 1.03 MB (Mass) Troponin I 0.040 0.083 Vancomycin Level 22.6 *H Trough Sodium Level 142 Potassium Level 4.0 Chloride Level 109 Carbon Dioxide 23 Level Anion Gap 10 Blood Urea 23 H Nitrogen Creatinine 1.25 H Est Glomerular 60 Filtrat Rate mL/min Glucose Level 145 # Calcium Level 8.6 Test 12/14/18 04:33 12/14/18 04:35 12/14/18 11:35 Blood Gas Specimen Blood arterial Source Arterial Blood 12/14/2018 4:30:45 Date Drawn AM Arterial Blood pH 7.436 (Temp corrected) Arterial Blood 36.1 pCO2 (Temp correct) Arterial Blood pO2 80.0 (Temp corrected) Arterial Blood 23.7 HCO3 Arterial Blood -0.1 Base Excess Arterial Blood 95.7 Oxygen Saturation Adrián Test ACCEPTAB Arterial Blood Gas Right Radial Puncture Site Arterial 0.3 Blood Carboxyhemog lobin Arterial Blood 0.2 Methemoglobin Blood Gas A-a O2 91.5 H Differential Oxyhemoglobin 95.2 Percent Blood Gas 37.0 Temperature Blood Gas 24.0 Respiration Rate Blood Gas Actual 24 Respiration Rate Blood Gas Modality VENT - AC FiO2 30.0 Blood Gas Tidal 500.0 Volume Blood Gas Low PEEP 5.0 Setting Blood Gas Notified MA Whom Blood Gas Notified 12/14/2018 5:09:33 Time AM White Blood Count 1.7 #L Pending Red Blood Count 4.09 L Pending Hemoglobin 10.2 L Pending Hematocrit 30.6 L Pending Mean Corpuscular 74.8 L Pending Volume Mean Corpuscular 24.9 L Pending Hemoglobin Mean Corpuscular 33.3 Pending Hemoglobin Concent Red Cell 17.6 H Pending Distribution Width Platelet Count 135 L Pending Mean Platelet 10.4 Pending Volume Immature 0.600 H Granulocytes % Nucleated Red 0.0 Blood Cells % Immature 0.010 Granulocytes # Subjective 24 Hr Interval Summary Free Text/Dictation Patient sedated, on vent being weaned Exam/Review of Systems Exam Vitals Vital Signs Date Temp Pulse Resp B/P (MAP) Pulse Ox O2 O2 Flow FiO2 Time Delivery Rate 12/14/18 82 08:00 12/14/18 21 119/71 100 Mechanical 07:00 (87) Ventilator 12/14/18 30 05:15 12/14/18 98.1 04:00 Intake and Output 12/13/18 12/13/18 12/14/18 1414:59 22:59 06:59 IntakeIntake Total 508.651 ml 310.571 ml 530.445 ml OutputOutput Total 780 ml 570 ml 265 ml BalanceBalance -271.349 ml -259.429 ml 265.445 ml Constitutional: well developed Head: normocephalic, atraumatic Neck: supple Respiratory: diminished breath sounds Cardiovascular: regular rate and rhythm Gastrointestinal: soft, non-tender Extremities: normal pulses Results Results 24hrs Laboratory Tests Test 12/13/18 12:28 12/13/18 17:19 12/13/18 22:32 12/14/18 04:31 Creatine Kinase 62 48 Creatine Kinase 1.7 2.1 Index Creatinine Kinase 1.08 1.03 MB (Mass) Troponin I 0.040 0.083 Vancomycin Level 22.6 *H Trough Sodium Level 142 Potassium Level 4.0 Chloride Level 109 Carbon Dioxide 23 Level Anion Gap 10 Blood Urea 23 H Nitrogen Creatinine 1.25 H Est Glomerular 60 Filtrat Rate mL/min Glucose Level 145 # Calcium Level 8.6 Test 12/14/18 04:33 12/14/18 04:35 12/14/18 11:35 Blood Gas Specimen Blood arterial Source Arterial Blood 12/14/2018 4:30:45 Date Drawn AM Arterial Blood pH 7.436 (Temp corrected) Arterial Blood 36.1 pCO2 (Temp correct) Arterial Blood pO2 80.0 (Temp corrected) Arterial Blood 23.7 HCO3 Arterial Blood -0.1 Base Excess Arterial Blood 95.7 Oxygen Saturation Adrián Test ACCEPTAB Arterial Blood Gas Right Radial Puncture Site Arterial 0.3 Blood Carboxyhemog lobin Arterial Blood 0.2 Methemoglobin Blood Gas A-a O2 91.5 H Differential Oxyhemoglobin 95.2 Percent Blood Gas 37.0 Temperature Blood Gas 24.0 Respiration Rate Blood Gas Actual 24 Respiration Rate Blood Gas Modality VENT - AC FiO2 30.0 Blood Gas Tidal 500.0 Volume Blood Gas Low PEEP 5.0 Setting Blood Gas Notified MA Whom Blood Gas Notified 12/14/2018 5:09:33 Time AM White Blood Count 1.7 #L Pending Red Blood Count 4.09 L Pending Hemoglobin 10.2 L Pending Hematocrit 30.6 L Pending Mean Corpuscular 74.8 L Pending Volume Mean Corpuscular 24.9 L Pending Hemoglobin Mean Corpuscular 33.3 Pending Hemoglobin Concent Red Cell 17.6 H Pending Distribution Width Platelet Count 135 L Pending Mean Platelet 10.4 Pending Volume Immature 0.600 H Granulocytes % Nucleated Red 0.0 Blood Cells % Immature 0.010 Granulocytes # Medications Medication Current Medications Nicardipine HCl 200 ml @ 50 mls/hr TITRATE IV ; Start 12/12/18 at 06:00 Fentanyl 100 ml @ 2.5 mls/hr TITRATE IV Last administered on 12/14/18at 10:51; Admin Dose 10 MLS/HR; Start 12/12/18 at 08:30 Propofol 100 ml @ 2.864 mls/ hr Q12H IV Last administered on 12/14/18at 07:30; Admin Dose 28.635 MLS/HR; Start 12/12/18 at 09:00 Enoxaparin Sodium (Lovenox) 30 mg DAILY SC Last administered on 12/14/18 08:50; Admin Dose 30 MG; Start 12/12/18 at 09:00 Pantoprazole (Protonix Iv) 40 mg DAILY@06 IV Last administered on 12/14/18 05:20; Admin Dose 40 MG; Start 12/12/18 at 09:00 Vancomycin HCl (Vanco Iv Per Pharmacy) VANCOMYCIN PER PHARMACY PER PROTOCOL XX ; Start 12/12/18 at 13:00 Cefepime HCl 50 ml @ 100 mls/hr Q12 IVPB Last administered on 12/14/18 08:48; Admin Dose 100 MLS/HR; Start 12/12/18 at 13:00 Hydralazine HCl (Apresoline) 10 mg Q4H PRN IV SBP>170 Last administered on 12/13/18 11:14; Admin Dose 10 MG; Start 12/12/18 at 13:00 Methylprednisolone Sodium Succinate (Solu-Medrol) 40 mg Q8 IV Last administered on 12/14/18 05:20; Admin Dose 40 MG; Start 12/13/18 at 14:00 Albuterol (Ventolin Hfa) 4 puff Q4HWA RESP THERAPY INH Last administered on 12/14/18 09:13; Admin Dose 4 PUFF; Start 12/13/18 at 13:00 Ipratropium [place] (Atrovent Hfa) 4 puff Q4HWA RESP THERAPY INH Last administered on 12/14/18 09:13; Admin Dose 4 PUFF; Start 12/13/18 at 13:00 Furosemide (Lasix) 20 mg DAILY IV Last administered on 12/14/18 08:48; Admin Dose 20 MG; Start 12/13/18 at 13:30 Vancomycin HCl 250 ml @ 125 mls/hr Q12H IVPB Last administered on 12/14/18 04:21; Admin Dose 125 MLS/HR; Start 12/14/18 at 04:00 Miscellaneous Information (*Rx Drug Level Order Reminder*) VANCO TR LEVEL PRIOR... 1500 ONCE XX ; Start 12/15/18 at 15:00; Stop 12/15/18 at 15:01 AIDA DE LA TORRE Dec 14, 2018 11:46
--- NOTE | 2018-12-14 11:53 | CONS ---
Consult Date/Type/Reason Admit Date/Time Dec 12, 2018 at 06:34 Initial Consult Date 12/12/18 Type of Consultation: Pulm/CCM Requesting Provider: DEBBIE BAKER MD Date/Time of Note DATE: 12/14/18 TIME: 11:49 Subjective Doing better. Alert and oriented on the vent and on propofol gtt. Anxious to be extubated. Objective Vitals Vital Signs Date Temp Pulse Resp B/P (MAP) Pulse Ox O2 O2 Flow FiO2 Time Delivery Rate 12/14/18 82 08:00 12/14/18 21 119/71 100 Mechanical 07:00 (87) Ventilator 12/14/18 30 05:15 12/14/18 98.1 04:00 Intake and Output 12/13/18 12/13/18 12/14/18 1515:00 23:00 07:00 IntakeIntake Total 470.286 ml 320.571 ml 559.080 ml OutputOutput Total 1045 ml 295 ml 240 ml BalanceBalance -574.714 ml 25.571 ml 319.080 ml Exam HEENT: Neck supple; no JVD; no LAD; + ET tube CVS: RRR, S1 and S2 CHEST: Clear with no wheezing ABD: Soft, NT, + BS EXT: No c/c/e Results/Medications Result Diagram: 12/14/18 0435 12/14/18 043 Results 24 hrs Laboratory Tests Test 12/13/18 12:28 12/13/18 17:19 12/13/18 22:32 12/14/18 04:31 Creatine Kinase 62 48 Creatine Kinase 1.7 2.1 Index Creatinine Kinase 1.08 1.03 MB (Mass) Troponin I 0.040 0.083 Vancomycin Level 22.6 *H Trough Sodium Level 142 Potassium Level 4.0 Chloride Level 109 Carbon Dioxide 23 Level Anion Gap 10 Blood Urea 23 H Nitrogen Creatinine 1.25 H Est Glomerular 60 Filtrat Rate mL/min Glucose Level 145 # Calcium Level 8.6 Test 12/14/18 04:33 12/14/18 04:35 12/14/18 11:35 Blood Gas Specimen Blood arterial Source Arterial Blood 12/14/2018 4:30:45 Date Drawn AM Arterial Blood pH 7.436 (Temp corrected) Arterial Blood 36.1 pCO2 (Temp correct) Arterial Blood pO2 80.0 (Temp corrected) Arterial Blood 23.7 HCO3 Arterial Blood -0.1 Base Excess Arterial Blood 95.7 Oxygen Saturation Adrián Test ACCEPTAB Arterial Blood Gas Right Radial Puncture Site Arterial 0.3 Blood Carboxyhemog lobin Arterial Blood 0.2 Methemoglobin Blood Gas A-a O2 91.5 H Differential Oxyhemoglobin 95.2 Percent Blood Gas 37.0 Temperature Blood Gas 24.0 Respiration Rate Blood Gas Actual 24 Respiration Rate Blood Gas Modality VENT - AC FiO2 30.0 Blood Gas Tidal 500.0 Volume Blood Gas Low PEEP 5.0 Setting Blood Gas Notified MA Whom Blood Gas Notified 12/14/2018 5:09:33 Time AM White Blood Count 1.7 #L Pending Red Blood Count 4.09 L Pending Hemoglobin 10.2 L Pending Hematocrit 30.6 L Pending Mean Corpuscular 74.8 L Pending Volume Mean Corpuscular 24.9 L Pending Hemoglobin Mean Corpuscular 33.3 Pending Hemoglobin Concent Red Cell 17.6 H Pending Distribution Width Platelet Count 135 L Pending Mean Platelet 10.4 Pending Volume Immature 0.600 H Granulocytes % Nucleated Red 0.0 Blood Cells % Immature 0.010 Granulocytes # Home Meds Active Scripts Hydralazine Hcl* (Apresoline*) 50 Mg Tab, 50 MG PO Q8, #90 TAB Prov:TERA GREEN 07/30/18 Prednisone* (Prednisone*) 20 Mg Tab, 40 MG PO DAILY for 5 Days, TAB Prov:TERA GREEN 07/30/18 Levofloxacin* (Levofloxacin*) 500 Mg Tablet, 500 MG PO DAILY for 7 Days, TAB Prov:TERA GREEN 07/30/18 Reported Medications Atorvastatin Calcium (Atorvastatin Calcium) 10 Mg Tablet, 10 MG PO QHS, #30 TAB 07/27/18 Salmeterol Xinaf/Fluticasone* (Advair*) 250-50 Diskus Inhaler, 1 INH INHALATION BID, #1 INHALER 07/27/18 Albuterol Sulfate* (Ventolin HFA*) 18 Gm Hfa.aer.ad, 2 PUFF INHALATION Q6H PRN for WHEEZING AND SOB, #1 INHALER 07/27/18 Aspirin* (Aspirin* Chew) 81 Mg Tab.chew, 81 MG PO DAILY, TAB.CHEW 07/27/18 Gabapentin* (Gabapentin*) 300 Mg Capsule, 600 MG PO QID, #180 CAP 07/27/18 Oxycodone Hcl* (Oxycontin*) 40 Mg Tab.er.12h, 40 MG PO Q12 PRN for SEVERE PAIN LEVEL 7-10, TAB 07/27/18 Atenolol* (Atenolol*) 50 Mg Tablet, 50 MG PO BID, #30 TAB 07/27/18 Losartan Potassium* (Losartan Potassium*) 50 Mg Tablet, 50 MG PO BID, TAB 07/27/18 Medications Current Medications Nicardipine HCl 200 ml @ 50 mls/hr TITRATE IV ; Start 12/12/18 at 06:00 Fentanyl 100 ml @ 2.5 mls/hr TITRATE IV Last administered on 12/14/18at 10:51; Admin Dose 10 MLS/HR; Start 12/12/18 at 08:30 Propofol 100 ml @ 2.864 mls/ hr Q12H IV Last administered on 12/14/18 07:30; Admin Dose 28.635 MLS/HR; Start 12/12/18 at 09:00 Enoxaparin Sodium (Lovenox) 30 mg DAILY SC Last administered on 12/14/18 08:50; Admin Dose 30 MG; Start 12/12/18 at 09:00 Pantoprazole (Protonix Iv) 40 mg DAILY@06 IV Last administered on 12/14/18 05:20; Admin Dose 40 MG; Start 12/12/18 at 09:00 Vancomycin HCl (Vanco Iv Per Pharmacy) VANCOMYCIN PER PHARMACY PER PROTOCOL XX ; Start 12/12/18 at 13:00 Cefepime HCl 50 ml @ 100 mls/hr Q12 IVPB Last administered on 12/14/18 08:48; Admin Dose 100 MLS/HR; Start 12/12/18 at 13:00 Hydralazine HCl (Apresoline) 10 mg Q4H PRN IV SBP>170 Last administered on 12/13/18at 11:14; Admin Dose 10 MG; Start 12/12/18 at 13:00 Methylprednisolone Sodium Succinate (Solu-Medrol) 40 mg Q8 IV Last administered on 12/14/18 05:20; Admin Dose 40 MG; Start 12/13/18 at 14:00 Albuterol (Ventolin Hfa) 4 puff Q4HWA RESP THERAPY INH Last administered on 12/14/18 09:13; Admin Dose 4 PUFF; Start 12/13/18 at 13:00 Ipratropium [place] (Atrovent Hfa) 4 puff Q4HWA RESP THERAPY INH Last administered on 12/14/18 09:13; Admin Dose 4 PUFF; Start 12/13/18 at 13:00 Furosemide (Lasix) 20 mg DAILY IV Last administered on 12/14/18at 08:48; Admin Dose 20 MG; Start 12/13/18 at 13:30 Vancomycin HCl 250 ml @ 125 mls/hr Q12H IVPB Last administered on 12/14/18 04:21; Admin Dose 125 MLS/HR; Start 12/14/18 at 04:00 Miscellaneous Information (*Rx Drug Level Order Reminder*) VANCO TR LEVEL PRIOR... 1500 ONCE XX ; Start 12/15/18 at 15:00; Stop 12/15/18 at 15:01 Assessment/Plan Assessment/Plan (Daily) IMP: 1. Acute Hypoxemic and Hypercapnic Respiratory Failure--in a patient with a large posterior mediastinal tumor (liposarcoma). Etiology of respiratory failure likely related to a combination of proximal bronchial obstruction 2/2 tumor and acute COPD exacerbation +/- CHF 2. Mediastinal Mass--Liposarcoma s/p chemotherapy at [facility] 3. Pancytopenia--2/2 chemo 4. HTN 5. Mild MOR 6. Transaminitis RECS: 1. To CPAP 5 PS 8; sedation holiday 2. Continue corticosteroids and bronchodilators 3. Follow ANC; initiate neutropenic precautions 4. RT to perform cuff leak test 5. De-escalate abx; though reasonable to maintain coverage for COPD exacerbation/post-obstructive early pna 6. BP control Case d/w in detail 40 min cc time KRISH TUTTLE MD Dec 14, 2018 11:53
--- NOTE | 2018-12-14 13:11 | CONS ---
Assessment/Plan Assessment/Plan Hospital Course (Demo Recall) IMPRESSION: 1. Abnormal echocardiogram, assess for acute coronary syndrome.-neg trop x 2/NL EF with LVDD by echo this admit. neg trop x 3 2. Tachycardia consistent with sinus tachycardia on admission in the setting of respiratory distress, now improved. 3. Hypertensive urgency/emergency in the setting of respiratory distress, now improved. Assess intubation. 4. Respiratory failure, status post intubation. 5. History of hypertension with mainly reasonable BP with a single elevation 6. Anemia. 7. Acidosis. 8. BNP-increased Recc: -ICU -s/p gentle lasix diuresis , follow volume status clsoely -Will start low dose BB to improve diastolic filling time and systolic ejection -Continue abx's/steroids/bronchodilators -Wean vent as tolerated Consultation Date/Type/Reason Admit Date/Time Dec 12, 2018 at 06:34 Initial Consult Date 12/12/18 Type of Consult Cardiology Reason for Consultation CHF Requesting Provider: DEBBIE BAKER MD Date/Time of Note DATE: 12/14/18 TIME: 13:07 Exam/Review of Systems Vital Signs Vitals Vital Signs Date Temp Pulse Resp B/P (MAP) Pulse Ox O2 O2 Flow FiO2 Time Delivery Rate 12/14/18 100 12 153/87 99 Mechanical 12:45 (109) Ventilator 12/14/18 99.5 12:00 12/14/18 30 11:18 Intake and Output 12/13/18 12/13/18 12/14/18 1515:00 23:00 07:00 IntakeIntake Total 470.286 ml 320.571 ml 559.080 ml OutputOutput Total 1045 ml 295 ml 240 ml BalanceBalance -574.714 ml 25.571 ml 319.080 ml Exam Exam Review of Systems: CONSTITUTIONAL: No fevers, chills. PULMONARY: No sob CARDIOVASCULAR: No chest pain/palpitations GASTROINTESTINAL: No nausea/vomiting. GENITOURINARY: No hematuria/dysuria. MUSCULOSKELETAL: No myagias/arthalgias. PSYCHIATRIC: The patient denies depression. NEUROLOGIC: No weakness Constitutional: alert Psych: no complaints Head: normocephalic ENMT: mucosa pink and moist Neck: supple, jvd (9 cm water) Respiratory: diminished breath sounds Cardiovascular: regular rate and rhythm Gastrointestinal: soft, non-tender Musculoskeletal: muscle tone (normal) Extremities: edema (none) Neurological: other (No focal deficits) Labs Result Diagram: 12/14/18 1135 12/14/18 0431 Results 24hrs Laboratory Tests Test 12/13/18 17:19 12/13/18 22:32 12/14/18 04:31 12/14/18 04:33 Creatine Kinase 48 Creatine Kinase 2.1 Index Creatinine Kinase 1.03 MB (Mass) Troponin I 0.083 Vancomycin Level 22.6 *H Trough Sodium Level 142 Potassium Level 4.0 Chloride Level 109 Carbon Dioxide 23 Level Anion Gap 10 Blood Urea 23 H Nitrogen Creatinine 1.25 H Est Glomerular 60 Filtrat Rate mL/min Glucose Level 145 # Calcium Level 8.6 Blood Gas Specimen Blood arterial Source Arterial Blood 12/14/2018 4:30:45 Date Drawn AM Arterial Blood pH 7.436 (Temp corrected) Arterial Blood 36.1 pCO2 (Temp correct) Arterial Blood pO2 80.0 (Temp corrected) Arterial Blood 23.7 HCO3 Arterial Blood -0.1 Base Excess Arterial Blood 95.7 Oxygen Saturation Adrián Test ACCEPTAB Arterial Blood Gas Right Radial Puncture Site Arterial 0.3 Blood Carboxyhemog lobin Arterial Blood 0.2 Methemoglobin Blood Gas A-a O2 91.5 H Differential Oxyhemoglobin 95.2 Percent Blood Gas 37.0 Temperature Blood Gas 24.0 Respiration Rate Blood Gas Actual 24 Respiration Rate Blood Gas Modality VENT - AC FiO2 30.0 Blood Gas Tidal 500.0 Volume Blood Gas Low PEEP 5.0 Setting Blood Gas Notified MA Whom Blood Gas Notified 12/14/2018 5:09:33 Time AM Test 12/14/18 04:35 12/14/18 11:35 White Blood Count 1.7 #L 2.0 L Red Blood Count 4.09 L 3.68 L Hemoglobin 10.2 L 9.1 L Hematocrit 30.6 L 28.2 L Mean Corpuscular 74.8 L 76.6 L Volume Mean Corpuscular 24.9 L 24.7 L Hemoglobin Mean Corpuscular 33.3 32.3 Hemoglobin Concent Red Cell 17.6 H 17.5 H Distribution Width Platelet Count 135 L 121 L Mean Platelet 10.4 10.6 H Volume Immature 0.600 H 0.500 H Granulocytes % Nucleated Red 0.0 0.0 Blood Cells % Immature 0.010 0.010 Granulocytes # Neutrophils % 78.0 H Lymphocytes % 18.5 Monocytes % 3.0 Eosinophils % 0.0 Basophils % 0.0 Neutrophils # 1.6 Lymphocytes # 0.4 L Monocytes # 0.1 L Eosinophils # 0.0 Basophils # 0.0 Nucleated Red 0.0 Blood Cells # Medications Medications Current Medications Nicardipine HCl 200 ml @ 50 mls/hr TITRATE IV ; Start 12/12/18 at 06:00 Fentanyl 100 ml @ 2.5 mls/hr TITRATE IV Last administered on 12/14/18 10:51; Admin Dose 10 MLS/HR; Start 12/12/18 at 08:30 Propofol 100 ml @ 2.864 mls/ hr Q12H IV Last administered on 12/14/18 12:19; Admin Dose 28.635 MLS/HR; Start 12/12/18 at 09:00 Enoxaparin Sodium (Lovenox) 30 mg DAILY SC Last administered on 12/14/18 08:50; Admin Dose 30 MG; Start 12/12/18 at 09:00 Pantoprazole (Protonix Iv) 40 mg DAILY@06 IV Last administered on 12/14/18 0 5:20; Admin Dose 40 MG; Start 12/12/18 at 09:00 Vancomycin HCl (Vanco Iv Per Pharmacy) VANCOMYCIN PER PHARMACY PER PROTOCOL XX ; Start 12/12/18 at 13:00 Cefepime HCl 50 ml @ 100 mls/hr Q12 IVPB Last administered on 12/14/18 08:48; Admin Dose 100 MLS/HR; Start 12/12/18 at 13:00 Hydralazine HCl (Apresoline) 10 mg Q4H PRN IV SBP>170 Last administered on 12/13/18 11:14; Admin Dose 10 MG; Start 12/12/18 at 13:00 Methylprednisolone Sodium Succinate (Solu-Medrol) 40 mg Q8 IV Last administered on 12/14/18 05:20; Admin Dose 40 MG; Start 12/13/18 at 14:00 Albuterol (Ventolin Hfa) 4 puff Q4HWA RESP THERAPY INH Last administered on 12/14/18 12:36; Admin Dose 4 PUFF; Start 12/13/18 at 13:00 Ipratropium [place] (Atrovent Hfa) 4 puff Q4HWA RESP THERAPY INH Last administered on 12/14/18at 12:36; Admin Dose 4 PUFF; Start 12/13/18 at 13:00 Vancomycin HCl 250 ml @ 125 mls/hr Q12H IVPB Last administered on 12/14/18at 04:21; Admin Dose 125 MLS/HR; Start 12/14/18 at 04:00 Miscellaneous Information (*Rx Drug Level Order Reminder*) VANCO TR LEVEL PRIOR... 1500 ONCE XX ; Start 12/15/18 at 15:00; Stop 12/15/18 at 15:01 JATIN DOBBS Dec 14, 2018 13:11
--- NOTE | 2018-12-14 13:38 | CONS ---
Assessment/Plan Assessment/Plan Assessment/Plan (Daily) Assessment/Plan (Daily) IMPRESSION: 1. 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 2. Chronic obstructive pulmonary disease. 3. Vent dependent respiratory failure. 4. Hypertension. 5. Dyslipidemia. 6. Transaminitis. Improving 7. Dysphagia secondary to mechanical compression of the esophagus by the tumor 8. Pancytopenia most probably related to chemotherapy Plan Monitor CBC Aspiration precaution when the patient is extubated and the patient started on a oral feeding Weaning is in process, discussed with the Consultation Date/Type/Reason Admit Date/Time Dec 12, 2018 at 06:34 Initial Consult Date 12/12/18 Requesting Provider: DEBBIE BAKER MD Date/Time of Note DATE: 12/14/18 TIME: 13:37 24 HR Interval Summary Subjective hx not possible: pt critical status Exam/Review of Systems Exam Vitals Vital Signs Date Temp Pulse Resp B/P (MAP) Pulse Ox O2 O2 Flow FiO2 Time Delivery Rate 12/14/18 100 12 153/87 99 Mechanical 12:45 (109) Ventilator 12/14/18 30 12:38 12/14/18 99.5 12:00 Intake and Output 12/13/18 12/13/18 12/14/18 1414:59 22:59 06:59 IntakeIntake Total 508.651 ml 310.571 ml 530.445 ml OutputOutput Total 780 ml 570 ml 265 ml BalanceBalance -271.349 ml -259.429 ml 265.445 ml ENMT: intubated Cardiovascular: No regular rate and rhythm, No nl pulses, No bruits, No diastolic murmur, No edema, No gallop, No irregular rhythm, No jugular venous distention (JVD), No murmurs/extra sounds, No rub, No systolic murmur, No S3, No S4, No other Results Result Diagram: 12/14/18 1135 12/14/18 0431 Results 24hrs Laboratory Tests Test 12/13/18 17:19 12/13/18 22:32 12/14/18 04:31 12/14/18 04:33 Creatine Kinase 48 Creatine Kinase 2.1 Index Creatinine Kinase 1.03 MB (Mass) Troponin I 0.083 Vancomycin Level 22.6 *H Trough Sodium Level 142 Potassium Level 4.0 Chloride Level 109 Carbon Dioxide 23 Level Anion Gap 10 Blood Urea 23 H Nitrogen Creatinine 1.25 H Est Glomerular 60 Filtrat Rate mL/min Glucose Level 145 # Calcium Level 8.6 Blood Gas Specimen Blood arterial Source Arterial Blood 12/14/2018 4:30:45 Date Drawn AM Arterial Blood pH 7.436 (Temp corrected) Arterial Blood 36.1 pCO2 (Temp correct) Arterial Blood pO2 80.0 (Temp corrected) Arterial Blood 23.7 HCO3 Arterial Blood -0.1 Base Excess Arterial Blood 95.7 Oxygen Saturation Adrián Test ACCEPTAB Arterial Blood Gas Right Radial Puncture Site Arterial 0.3 Blood Carboxyhemog lobin Arterial Blood 0.2 Methemoglobin Blood Gas A-a O2 91.5 H Differential Oxyhemoglobin 95.2 Percent Blood Gas 37.0 Temperature Blood Gas 24.0 Respiration Rate Blood Gas Actual 24 Respiration Rate Blood Gas Modality VENT - AC FiO2 30.0 Blood Gas Tidal 500.0 Volume Blood Gas Low PEEP 5.0 Setting Blood Gas Notified MA Whom Blood Gas Notified 12/14/2018 5:09:33 Time AM Test 12/14/18 04:35 12/14/18 11:35 White Blood Count 1.7 #L 2.0 L Red Blood Count 4.09 L 3.68 L Hemoglobin 10.2 L 9.1 L Hematocrit 30.6 L 28.2 L Mean Corpuscular 74.8 L 76.6 L Volume Mean Corpuscular 24.9 L 24.7 L Hemoglobin Mean Corpuscular 33.3 32.3 Hemoglobin Concent Red Cell 17.6 H 17.5 H Distribution Width Platelet Count 135 L 121 L Mean Platelet 10.4 10.6 H Volume Immature 0.600 H 0.500 H Granulocytes % Nucleated Red 0.0 0.0 Blood Cells % Immature 0.010 0.010 Granulocytes # Neutrophils % 78.0 H Lymphocytes % 18.5 Monocytes % 3.0 Eosinophils % 0.0 Basophils % 0.0 Neutrophils # 1.6 Lymphocytes # 0.4 L Monocytes # 0.1 L Eosinophils # 0.0 Basophils # 0.0 Nucleated Red 0.0 Blood Cells # Medications Medication Current Medications Nicardipine HCl 200 ml @ 50 mls/hr TITRATE IV ; Start 12/12/18 at 06:00 Fentanyl 100 ml @ 2.5 mls/hr TITRATE IV Last administered on 4/7/19at 10:51; Admin Dose 10 MLS/HR; Start 12/12/18 at 08:30 Propofol 100 ml @ 2.864 mls/ hr Q12H IV Last administered on 12/14/18 12:19; Admin Dose 28.635 MLS/HR; Start 12/12/18 at 09:00 Enoxaparin Sodium (Lovenox) 30 mg DAILY SC Last administered on 12/14/18 08:50; Admin Dose 30 MG; Start 12/12/18 at 09:00 Pantoprazole (Protonix Iv) 40 mg DAILY@06 IV Last administered on 12/14/18 05:20; Admin Dose 40 MG; Start 12/12/18 at 09:00 Vancomycin HCl (Vanco Iv Per Pharmacy) VANCOMYCIN PER PHARMACY PER PROTOCOL XX ; Start 12/12/18 at 13:00 Cefepime HCl 50 ml @ 100 mls/hr Q12 IVPB Last administered on 12/14/18 08:48; Admin Dose 100 MLS/HR; Start 12/12/18 at 13:00 Hydralazine HCl (Apresoline) 10 mg Q4H PRN IV SBP>170 Last administered on 12/13/18 11:14; Admin Dose 10 MG; Start 12/12/18 at 13:00 Methylprednisolone Sodium Succinate (Solu-Medrol) 40 mg Q8 IV Last administered on 12/14/18 05:20; Admin Dose 40 MG; Start 12/13/18 at 14:00 Albuterol (Ventolin Hfa) 4 puff Q4HWA RESP THERAPY INH Last administered on 12/14/18 12:36; Admin Dose 4 PUFF; Start 12/13/18 at 13:00 Ipratropium [place] (Atrovent Hfa) 4 puff Q4HWA RESP THERAPY INH Last administered on 12/14/18 12:36; Admin Dose 4 PUFF; Start 12/13/18 at 13:00 Vancomycin HCl 250 ml @ 125 mls/hr Q12H IVPB Last administered on 12/14/18 04:21; Admin Dose 125 MLS/HR; Start 12/14/18 at 04:00 Miscellaneous Information (*Rx Drug Level Order Reminder*) VANCO TR LEVEL PRIOR... 1500 ONCE XX ; Start 12/15/18 at 15:00; Stop 12/15/18 at 15:01 Metoprolol Tartrate (Lopressor) 25 mg BID PO ; Start 12/14/18 at 21:00 ALEXYS BILL MD Dec 14, 2018 13:38
--- NOTE | 2018-12-14 14:41 | CONS ---
Assessment/Plan Assessment/Plan Hospital Course (Demo Recall) Awake, comfortable on Cpap, family at bedside, no fevers Microbiology: Blood culture growing gram-positive cocci in pairs and clusters [address] culture [address] of the chest and thorax revealed no evidence of pulmonary embolism. Please see full report Indwelling: Endotracheal tube NG tube right chest Port-A-Cath, Shields catheter Allergies: ertapenem amoxicillin and sulfa Antimicrobials: Vancomycin cefepime Physical examination: This is a well-nourished well-developed middle-aged [place] man who is intubated sedated in no distress. Head atraumatic normocephalic sclera nonicteric. Neck is supple. Chest rise symmetrical, breath sounds diminished bases. Heart: S1-S2. Abdomen soft bowel sounds present extremities without cyanosis Assessment: 1. Acute hypoxemic respiratory failure secondary to large posterior mediastinal tumor, rule out aspiration 2. Bacteremia, rule out line sepsis 3. Mediastinal mass/liposarcoma, status post chemotherapy at [facility] 4. Hypertension 5. Pancytopenia Plan: Doing better, pending repeat bld cx, continue abx, vent per pulmonary Consultation Date/Type/Reason Admit Date/Time Dec 12, 2018 at 06:34 Initial Consult Date 12/12/18 Type of Consult id Requesting Provider: DEBBIE BAKER MD Date/Time of Note DATE: 12/14/18 TIME: 14:39 Exam/Review of Systems Exam Vitals Vital Signs Date Temp Pulse Resp B/P (MAP) Pulse Ox O2 O2 Flow FiO2 Time Delivery Rate 12/14/18 100 12 153/87 99 Mechanical 12:45 (109) Ventilator 12/14/18 30 12:38 12/14/18 99.5 12:00 Intake and Output 12/13/18 12/13/18 12/14/18 1515:00 23:00 07:00 IntakeIntake Total 470.286 ml 320.571 ml 559.080 ml OutputOutput Total 1045 ml 295 ml 280 ml BalanceBalance -574.714 ml 25.571 ml 279.080 ml Results Result Diagram: 12/14/18 1135 12/14/18 0431 Results 24hrs Laboratory Tests Test 12/13/18 17:19 12/13/18 22:32 12/14/18 04:31 12/14/18 04:33 Creatine Kinase 48 Creatine Kinase 2.1 Index Creatinine Kinase 1.03 MB (Mass) Troponin I 0.083 Vancomycin Level 22.6 *H Trough Sodium Level 142 Potassium Level 4.0 Chloride Level 109 Carbon Dioxide 23 Level Anion Gap 10 Blood Urea 23 H Nitrogen Creatinine 1.25 H Est Glomerular 60 Filtrat Rate mL/min Glucose Level 145 # Calcium Level 8.6 Blood Gas Specimen Blood arterial Source Arterial Blood 12/14/2018 4:30:45 Date Drawn AM Arterial Blood pH 7.436 (Temp corrected) Arterial Blood 36.1 pCO2 (Temp correct) Arterial Blood pO2 80.0 (Temp corrected) Arterial Blood 23.7 HCO3 Arterial Blood -0.1 Base Excess Arterial Blood 95.7 Oxygen Saturation Adrián Test ACCEPTAB Arterial Blood Gas Right Radial Puncture Site Arterial 0.3 Blood Carboxyhemog lobin Arterial Blood 0.2 Methemoglobin Blood Gas A-a O2 91.5 H Differential Oxyhemoglobin 95.2 Percent Blood Gas 37.0 Temperature Blood Gas 24.0 Respiration Rate Blood Gas Actual 24 Respiration Rate Blood Gas Modality VENT - AC FiO2 30.0 Blood Gas Tidal 500.0 Volume Blood Gas Low PEEP 5.0 Setting Blood Gas Notified [place] Whom Blood Gas Notified 12/14/2018 5:09:33 Time AM Test 12/14/18 04:35 12/14/18 11:35 White Blood Count 1.7 #L 2.0 L Red Blood Count 4.09 L 3.68 L Hemoglobin 10.2 L 9.1 L Hematocrit 30.6 L 28.2 L Mean Corpuscular 74.8 L 76.6 L Volume Mean Corpuscular 24.9 L 24.7 L Hemoglobin Mean Corpuscular 33.3 32.3 Hemoglobin Concent Red Cell 17.6 H 17.5 H Distribution Width Platelet Count 135 L 121 L Mean Platelet 10.4 10.6 H Volume Immature 0.600 H 0.500 H Granulocytes % Nucleated Red 0.0 0.0 Blood Cells % Immature 0.010 0.010 Granulocytes # Neutrophils % 78.0 H Lymphocytes % 18.5 Monocytes % 3.0 Eosinophils % 0.0 Basophils % 0.0 Neutrophils # 1.6 Lymphocytes # 0.4 L Monocytes # 0.1 L Eosinophils # 0.0 Basophils # 0.0 Nucleated Red 0.0 Blood Cells # Medications Medication Current Medications Nicardipine HCl 200 ml @ 50 mls/hr TITRATE IV ; Start 12/12/18 at 06:00 Fentanyl 100 ml @ 2.5 mls/hr TITRATE IV Last administered on 12/14/18 10:51; Admin Dose 10 MLS/HR; Start 12/12/18 at 08:30 Propofol 100 ml @ 2.864 mls/ hr Q12H IV Last administered on 12/14/18 12:19; Admin Dose 28.635 MLS/HR; Start 12/12/18 at 09:00 Enoxaparin Sodium (Lovenox) 30 mg DAILY SC Last administered on 12/14/18 08:50; Admin Dose 30 MG; Start 12/12/18 at 09:00 Pantoprazole (Protonix Iv) 40 mg DAILY@06 IV Last administered on 12/14/18 05:20; Admin Dose 40 MG; Start 12/12/18 at 09:00 Vancomycin HCl (Vanco Iv Per Pharmacy) VANCOMYCIN PER PHARMACY PER PROTOCOL XX ; Start 12/12/18 at 13:00 Cefepime HCl 50 ml @ 100 mls/hr Q12 IVPB Last administered on 12/14/18 08:48; Admin Dose 100 MLS/HR; Start 12/12/18 at 13:00 Hydralazine HCl (Apresoline) 10 mg Q4H PRN IV SBP>170 Last administered on 12/13 11:14; Admin Dose 10 MG; Start 12/12/18 at 13:00 Methylprednisolone Sodium Succinate (Solu-Medrol) 40 mg Q8 IV Last administered on 12/14/18 14:20; Admin Dose 40 MG; Start 12/13/18 at 14:00 Albuterol (Ventolin Hfa) 4 puff Q4HWA RESP THERAPY INH Last administered on 12/14/18 12:36; Admin Dose 4 PUFF; Start 12/13/18 at 13:00 Ipratropium [place] (Atrovent Hfa) 4 puff Q4HWA RESP THERAPY INH Last administered on 12/14/18 12:36; Admin Dose 4 PUFF; Start 12/13/18 at 13:00 Vancomycin HCl 250 ml @ 125 mls/hr Q12H IVPB Last administered on 12/14/18 04:21; Admin Dose 125 MLS/HR; Start 12/14/18 at 04:00 Miscellaneous Information (*Rx Drug Level Order Reminder*) VANCO TR LEVEL PRIOR... 1500 ONCE XX ; Start 12/15/18 at 15:00; Stop 12/15/18 at 15:01 Metoprolol Tartrate (Lopressor) 25 mg BID PO ; Start 12/14/18 at 21:00 MAYELA TUCKER NP Dec 14, 2018 14:41
[2018-12-14] MEDS: hydrALAzine 20 MG INJ IV PRN (15:30)
[2018-12-14] MEDS ORDERED: morphine 2 MG INJ IV PRN (16:00)
[2018-12-14] MEDS ORDERED: HYDROmorphONE 0.5 MG/0.5 ML SYG IV PRN (17:00)
[2018-12-14] MEDS ORDERED: HYDROmorphONE 0.5 MG/0.5 ML SYG IV STA (17:07)
[2018-12-14] MEDS ORDERED: hydrALAzine 20 MG INJ IV PRN (18:00)
[2018-12-14] MEDS: ALBUTEROL/IPRATROPIUM (NEB) 3 ML AMP HHN SCH ×2 (18:06→20:38)
[2018-12-14] MEDS: SOD CHLORIDE 0.9% 1,000 ML IV SCH (19:06)
[2018-12-14] MEDS: DIPHENHYDRAMINE 50 MG INJ IV PRN (19:18)
[2018-12-14] MEDS: ONDANSETRON 4 MG INJ IV PRN (19:37)
[2018-12-14] MEDS: METOPROLOL 25 MG TAB PO SCH (21:00)
[2018-12-14] MEDS ORDERED: HYDROmorphONE 1 MG/ML SYG IV PRN (21:00)
[2018-12-14] MEDS: HYDROmorphONE 1 MG/ML SYG IV PRN (22:14)
[2018-12-15] VITALS (62 sets, daily range): BP systolic 129–184; BP diastolic 69–139; PULSE 78–106; RESP 0–36
[2018-12-15] MEDS: ALBUTEROL/IPRATROPIUM (NEB) 3 ML AMP HHN SCH ×6 (00:40→20:32)
[2018-12-15] MEDS: DIPHENHYDRAMINE 50 MG INJ IV PRN (01:09)
[2018-12-15] MEDS: HYDROmorphONE 1 MG/ML SYG IV PRN ×4 (02:12→14:05)
[2018-12-15] MEDS: VANCOMYCIN 1 GM 250 ML IVPB SCH ×2 (03:56→16:22)
[2018-12-15] MEDS: ENALAPRILAT 1.25 MG INJ IV PRN ×2 (05:40→13:40)
[2018-12-15] MEDS: PANTOPRAZOLE 40 MG INJ IV SCH (05:43)
[2018-12-15] MEDS: METHYLPREDNISOLONE 40 MG INJ IV SCH ×3 (05:50→22:02)
[2018-12-15] MEDS: niCARdipine-NS 0.1MG/ML DRIP 200 ML IV SCH ×2 (06:40→14:44)
--- NOTE | 2018-12-15 07:29 | CONS ---
Assessment/Plan Assessment/Plan Hospital Course (Demo Recall) 58 yo male with recurring liposarcoma, on chemo Interval hx: Pt is a/o. Extubated yesterday. Wants to eat. No bm in 5 days but has not been eating either. He c/o nausea post chemo which is alleviated with zofran. He does have mild PTP in RUQ but states it has been like that since his surgery years ago for liposarcoma removal. 1. 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 2. Chronic obstructive pulmonary disease. 3. Vent dependent respiratory failure. 4. Hypertension. 5. Dyslipidemia. 6. Transaminitis. -trending down -likely secondary to chemo or fatty liver 7. Fatty liver 8. Dysphagia secondary to mechanical compression of the esophagus by the tumor 9. Pancytopenia most probably related to chemotherapy Plan Swallow evaluation US of liver. Monitor LFTs Monitor CBC Aspiration precaution when the patient is extubated and the patient started on a oral feeding Pt examined and plan of care discussed with Dr. Perkins Consultation Date/Type/Reason Admit Date/Time Dec 12, 2018 at 06:34 Initial Consult Date 12/12/18 Requesting Provider: DEBBIE BAKER MD Date/Time of Note DATE: 12/15/18 TIME: 07:17 Exam/Review of Systems Exam Vitals Vital Signs Date Temp Pulse Resp B/P (MAP) Pulse Ox O2 O2 Flow FiO2 Time Delivery Rate 12/15/18 95 18 99 Nasal 2.0 04:39 Cannula 12/15/18 161/91 03:30 (114) 12/15/18 98.8 00:00 12/14/18 30 12:38 Intake and Output 12/14/18 12/14/18 12/15/18 1515:00 23:00 07:00 IntakeIntake Total 98.6 ml 500 ml 150 ml OutputOutput Total 280 ml 484 ml 300 ml BalanceBalance -181.4 ml 16 ml -150 ml Constitutional: alert, oriented Psych: no complaints Head: normocephalic Eyes: nl sclera, PERRL ENMT: other (bucchal mucosa dry and pink) Respiratory: diminished breath sounds Cardiovascular: regular rate and rhythm Gastrointestinal: soft, tender (mild TTP in RUQ, small scar in RUQ) Neurological: nl mental status Results Result Diagram: 12/15/180 12/15/180 Results 24hrs Laboratory Tests Test 12/14/18 11:35 12/14/18 13:00 12/15/18 04:00 12/15/18 04:30 White Blood 2.0 L 2.6 #L Count Red Blood Count 3.68 L 4.24 L Hemoglobin 9.1 L 10.3 L Hematocrit 28.2 L 32.4 L Mean 76.6 L 76.4 L Corpuscular Volume Mean 24.7 L 24.3 L Corpuscular Hemoglobin Mean 32.3 31.8 L Corpuscular Hemoglobin Conc ent Red Cell 17.5 H 18.6 H Distribution Width Platelet Count 121 L 121 L Mean Platelet 10.6 H 10.6 H Volume Immature 0.500 H 0.800 H Granulocytes % Neutrophils % 78.0 H 84.8 H Lymphocytes % 18.5 10.9 L Monocytes % 3.0 3.5 Eosinophils % 0.0 0.0 Basophils % 0.0 0.0 Nucleated Red 0.0 0.0 Blood Cells % Immature 0.010 0.020 Granulocytes # Neutrophils # 1.6 2.2 Lymphocytes # 0.4 L 0.3 L Monocytes # 0.1 L 0.1 L Eosinophils # 0.0 0.0 Basophils # 0.0 0.0 Nucleated Red 0.0 0.0 Blood Cells # Blood Gas Blood arterial Blood arterial Specimen Source Arterial Blood 12/14/2018 1:45:0 12/15/2018 5:30:3 Date Drawn 0 PM 6 AM Arterial Blood 7.455 H 7.388 pH (Temp corrected ) Arterial Blood 33.2 L 42.6 pCO2 (Temp correct) Arterial Blood 78.5 L 81.5 pO2 (Temp corrected ) Arterial Blood 22.8 25.1 HCO3 Arterial Blood -0.5 0 Base Excess Arterial Blood 95.2 95.4 Oxygen Saturati on Adrián Test ACCEPTAB ACCEPTAB Arterial Blood Right Radial Right Radial Gas Puncture Site Arterial 0.2 0.3 Blood Carboxyhe moglobin Arterial Blood 0.2 0.2 Methemoglobin Blood Gas A-a 96.4 H 60.6 H O2 Differential Oxyhemoglobin 94.8 94.9 Percent Blood Gas 37.0 37.0 Temperature Blood Gas 14 Actual Respiration Rat e Blood Gas VENT - CPAP NASAL CANNULA Modality FiO2 30.0 27.0 Blood Gas Low 5.0 PEEP Setting Blood Gas 8 Pressure Support Blood Gas DT MA Notified Whom Blood Gas 12/14/2018 1:55:0 12/15/2018 6:57:3 Notified Time 0 PM 9 AM Sodium Level 146 H Potassium Level 4.3 Chloride Level 112 H Carbon Dioxide 26 Level Anion Gap 8 Blood Urea 27 H Nitrogen Creatinine 1.07 Est Glomerular > 60 Filtrat Rate mL/min Glucose Level 160 Calcium Level 8.3 L Test 12/15/18 05:00 Blood Gas Blood arterial Specimen Source Arterial Blood 12/14/2018 1:45:1 Date Drawn 2 PM Arterial Blood 7.455 H pH (Temp corrected ) Arterial Blood 33.2 L pCO2 (Temp correct) Arterial Blood 78.5 L pO2 (Temp corrected ) Arterial Blood 22.8 HCO3 Arterial Blood -0.5 Base Excess Arterial Blood 95.2 Oxygen Saturati on Adrián Test ACCEPTAB Arterial Blood Right Radial Gas Puncture Site Arterial 0.2 Blood Carboxyhe moglobin Arterial Blood 0.2 Methemoglobin Blood Gas A-a 96.4 H O2 Differential Oxyhemoglobin 94.8 Percent Blood Gas 37.0 Temperature Blood Gas 14 Actual Respiration Rat e Blood Gas VENT - CPAP Modality FiO2 30.0 Blood Gas Low 5.0 PEEP Setting Blood Gas 8 Pressure Support Blood Gas DT Notified Whom Blood Gas 12/14/2018 1:55:4 Notified Time 7 PM Medications Medication Current Medications Nicardipine HCl 200 ml @ 50 mls/hr TITRATE IV Last administered on 12/15/18at 06:40; Admin Dose 10 MLS/HR; Start 12/12/18 at 06:00 Propofol 100 ml @ 2.864 mls/ hr Q12H IV Last administered on 12/14/18at 12:19; Admin Dose 28.635 MLS/HR; Start 12/12/18 at 09:00 Enoxaparin Sodium (Lovenox) 30 mg DAILY SC Last administered on 12/14/18at 08:50; Admin Dose 30 MG; Start 12/12/18 at 09:00 Pantoprazole (Protonix Iv) 40 mg DAILY@06 IV Last administered on 12/15/18at 05:43; Admin Dose 40 MG; Start 12/12/18 at 09:00 Vancomycin HCl (Vanco Iv Per Pharmacy) VANCOMYCIN PER PHARMACY PER PROTOCOL XX ; Start 12/12/18 at 13:00 Cefepime HCl 50 ml @ 100 mls/hr Q12 IVPB Last administered on 12/14/18 20:49; Admin Dose 100 MLS/HR; Start 12/12/18 at 13:00 Methylprednisolone Sodium Succinate (Solu-Medrol) 40 mg Q8 IV Last administered on 12/15/18 05:50; Admin Dose 40 MG; Start 12/13/18 at 14:00 Vancomycin HCl 250 ml @ 125 mls/hr Q12H IVPB Last administered on 12/15/18 03:56; Admin Dose 125 MLS/HR; Start 12/14/18 at 04:00 Miscellaneous Information (*Rx Drug Level Order Reminder*) VANCO TR LEVEL PRIOR... 1500 ONCE XX ; Start 12/15/18 at 15:00; Stop 12/15/18 at 15:01 Metoprolol Tartrate (Lopressor) 25 mg BID PO ; Start 12/14/18 at 21:00 Albuterol/ Ipratropium (Duoneb) 3 ml Q4H RESP THERAPY HHN Last administered on 12/15/18 04:39; Admin Dose 3 ML; Start 12/14/18 at 17:00 Hydromorphone HCl (Dilaudid) 1 mg Q4H PRN IV SEVERE PAIN LEVEL 7-10 Last administered on 12/15/18 05:47; Admin Dose 1 MG; Start 12/14/18 at 18:00 Sodium Chloride 1,000 ml @ 50 mls/hr Q20H IV Last administered on 12/14/18 19:06; Admin Dose 50 MLS/HR; Start 12/14/18 at 19:00 Enalaprilat (Vasotec Iv) 1.25 mg Q3 PRN IV ELEVATED BLOOD PRESSURE Last administered on 12/15/18 05:40; Admin Dose 1.25 MG; Start 12/14/18 at 19:00 Diphenhydramine HCl (Benadryl) 25 mg Q6H PRN IV ALLERGIC REACTION Last administered on 12/15/18 01:09; Admin Dose 25 MG; Start 12/14/18 at 19:30 Ondansetron HCl (Zofran Inj) 4 mg Q6H PRN IV NAUSEA AND/OR VOMITING Last administered on 12/14/18 19:37; Admin Dose 4 MG; Start 12/14/18 at 19:30 RENNY DANG Dec 15, 2018 07:28
[2018-12-15] MEDS: CEFEPIME 1GM/50 ML (PMX) 50 ML IVPB SCH ×2 (08:29→22:02)
[2018-12-15] MEDS: ENOXAPARIN 30 MG/0.3 ML SYG SC SCH (08:31)
[2018-12-15] MEDS: METOPROLOL 25 MG TAB PO SCH (08:32)
--- NOTE | 2018-12-15 08:34 | PN ---
DATE: 12/15/2018 SUBJECTIVE: The patient remains in critical condition. The patient is currently on Cardene drip for hypertension. No other events noted. No hemoptysis, hematemesis or hematochezia. OBJECTIVE: VITAL SIGNS: Blood pressure is 167/86, respirations 15, pulse 106, temperature 98.6. HEENT: Head is normocephalic. NECK: Supple. HEART: Regular rate. LUNGS: Show diminished breath sounds at the base. ABDOMEN: Soft, nontender to palpation without rebound or guarding. EXTREMITIES: Negative for clubbing, cyanosis, no edema. DERMATOLOGIC: No rashes. MUSCULOSKELETAL: No joint effusion. NEUROLOGIC: No change in exam. MEDICATIONS: The patient's medications have been reviewed. LABORATORY DATA: The laboratory data for 12/15 was reviewed. The patient's ABG was reviewed. IMAGING STUDIES: Reviewed. ASSESSMENT AND PLAN: 1. Nonoliguric acute kidney injury with previously normal baseline creatinine. Etiology of acute ki dney injury was secondary to hemodynamics, questionable contrast-associated nephropathy. The patient 's renal function has improved in the last 24 hours. At this point, continue current treatment plan, supportive care, renally dose all meds. 2. Hypertensive urgency. The patient is currently on a Cardene drip. We will continue current [facility] management and adjust oral antihypertensive medications. Okay to give JONNIE inhibitor or ARB. 3. Respiratory failure. The patient is status post extubation. Will continue to monitor. Follow u p with pulmonary. 4. Liposarcoma with relapse. The patient is currently on chemotherapy, last chemotherapy was 1 week ago. Continue to monitor. 5. Right pleural effusion due to pneumonia, liposarcoma. Continue to monitor. 6. History of chronic obstructive pulmonary disease. Continue medical management. 7. Dyslipidemia. Continue current medical management. 8. Encephalopathy, etiology is toxic metabolic. 9. Mild anemia. Monitor hemoglobin and hematocrit levels. Dictated By: KIP APARICIO DO NR/NTS Conf#: [id number] DID#: [id number] CC: SONU WILHELM MD; DEBBIE BAKER MD;*EndCC*
[2018-12-15] MEDS ORDERED: LISINOPRIL 20 MG TAB PO SCH (09:00)
--- NOTE | 2018-12-15 10:56 | CONS ---
Assessment/Plan Assessment/Plan Assessment/Plan (Daily) Assessment recommendations; 1. Patient admitted with respiratory failure due to COPD exacerbation and pneumonia status post extubation with stable clinical status. 2. 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 3. CHF. 4. Anemia and thrombocytopenia, likely chemotherapy related. 5. Acute renal injury with improving renal function. 6. History of hypertension. 5. Mild CHF. Continue current supportive care. CODE STATUS needs to be addressed with the family. Prognosis appears poor. Transfer to medical floor. Consultation Date/Type/Reason Admit Date/Time Dec 12, 2018 at 06:34 Initial Consult Date 12/12/18 Type of Consult Pulmonary/critical care Patient is a 58-year-old male who was brought into the hospital with shortness of breath. Patient was found to be in respiratory failure and had to be intubated by the ER physician. However no CPR was performed. By the time I saw him, patient is orally intubated and sedated. Did not appear to be in any distress. History has been obtained from medical records. Past medical history; 1. 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 It is unclear if the patient has had a recurrence. Apparently patient is currently on chemotherapy. 2. History of COPD 3. History of hypertension. Medications; reviewed. Allergies; as outlined above. Social history; history of smoking. Family history; not available. Occupational history; not available. Review of system; unable to be obtained. General exam; middle-aged male, orally intubated, sedated, currently in no distress. Requesting Provider: DEBBIE BAKER MD Date/Time of Note DATE: 12/15/18 TIME: 10:54 24 HR Interval Summary Free Text/Dictation Patient's condition is stable. Was extubated last afternoon. Has remained hemodynamically stable. General exam; middle-aged male, awake and alert. Currently in no distress. Exam/Review of Systems Exam Vitals Vital Signs Date Temp Pulse Resp B/P (MAP) Pulse Ox O2 O2 Flow FiO2 Time Delivery Rate 12/15/18 101 16 100 Nasal 2.0 08:22 Cannula 12/15/18 98.6 167/86 08:00 (113) 12/14/18 30 12:38 Intake and Output 12/14/18 12/14/18 12/15/18 1515:00 23:00 07:00 IntakeIntake Total 98.6 ml 500 ml 610 ml OutputOutput Total 280 ml 484 ml 620 ml BalanceBalance -181.4 ml 16 ml -10 ml Exam H EENT exam; supple neck, no JVD. No lymphadenopathy. Midline trachea. No thyromegaly. Chest exam; diminished but clear breath sounds. S1-S2 audible, no murmurs. Regular rhythm. Abdomen exam; soft, protuberant. Nontender. No organomegaly. Bowel sounds audible. Extremity exam; peripheral edema clubbing. DIRECTOR RECREATION exam; no focal deficit. Results Result Diagram: 12/15/18 0400 12/15/180 Results 24hrs Laboratory Tests Test 12/14/18 11:35 12/14/18 13:00 12/15/18 04:00 12/15/18 04:30 White Blood 2.0 L 2.6 #L Count Red Blood Count 3.68 L 4.24 L Hemoglobin 9.1 L 10.3 L Hematocrit 28.2 L 32.4 L Mean 76.6 L 76.4 L Corpuscular Volume Mean 24.7 L 24.3 L Corpuscular Hemoglobin Mean 32.3 31.8 L Corpuscular Hemoglobin Conc ent Red Cell 17.5 H 18.6 H Distribution Width Platelet Count 121 L 121 L Mean Platelet 10.6 H 10.6 H Volume Immature 0.500 H 0.800 H Granulocytes % Neutrophils % 78.0 H 84.8 H Lymphocytes % 18.5 10.9 L Monocytes % 3.0 3.5 Eosinophils % 0.0 0.0 Basophils % 0.0 0.0 Nucleated Red 0.0 0.0 Blood Cells % Immature 0.010 0.020 Granulocytes # Neutrophils # 1.6 2.2 Lymphocytes # 0.4 L 0.3 L Monocytes # 0.1 L 0.1 L Eosinophils # 0.0 0.0 Basophils # 0.0 0.0 Nucleated Red 0.0 0.0 Blood Cells # Blood Gas Blood arterial Blood arterial Specimen Source Arterial Blood 12/14/2018 1:45:0 12/15/2018 5:30:3 Date Drawn 0 PM 6 AM Arterial Blood 7.455 H 7.388 pH (Temp corrected ) Arterial Blood 33.2 L 42.6 pCO2 (Temp correct) Arterial Blood 78.5 L 81.5 pO2 (Temp corrected ) Arterial Blood 22.8 25.1 HCO3 Arterial Blood -0.5 0 Base Excess Arterial Blood 95.2 95.4 Oxygen Saturati on Adrián Test ACCEPTAB ACCEPTAB Arterial Blood Right Radial Right Radial Gas Puncture Site Arterial 0.2 0.3 Blood Carboxyhe moglobin Arterial Blood 0.2 0.2 Methemoglobin Blood Gas A-a 96.4 H 60.6 H O2 Differential Oxyhemoglobin 94.8 94.9 Percent Blood Gas 37.0 37.0 Temperature Blood Gas 14 Actual Respiration Rat e Blood Gas VENT - CPAP NASAL CANNULA Modality FiO2 30.0 27.0 Blood Gas Low 5.0 PEEP Setting Blood Gas 8 Pressure Support Blood Gas DT MA Notified Whom Blood Gas 12/14/2018 1:55:0 12/15/2018 6:57:3 Notified Time 0 PM 9 AM Sodium Level 146 H Potassium Level 4.3 Chloride Level 112 H Carbon Dioxide 26 Level Anion Gap 8 Blood Urea 27 H Nitrogen Creatinine 1.07 Est Glomerular > 60 Filtrat Rate mL/min Glucose Level 160 Calcium Level 8.3 L Test 12/15/18 05:00 Blood Gas Blood arterial Specimen Source Arterial Blood 12/14/2018 1:45:1 Date Drawn 2 PM Arterial Blood 7.455 H pH (Temp corrected ) Arterial Blood 33.2 L pCO2 (Temp correct) Arterial Blood 78.5 L pO2 (Temp corrected ) Arterial Blood 22.8 HCO3 Arterial Blood -0.5 Base Excess Arterial Blood 95.2 Oxygen Saturati on Adrián Test ACCEPTAB Arterial Blood Right Radial Gas Puncture Site Arterial 0.2 Blood Carboxyhe moglobin Arterial Blood 0.2 Methemoglobin Blood Gas A-a 96.4 H O2 Differential Oxyhemoglobin 94.8 Percent Blood Gas 37.0 Temperature Blood Gas 14 Actual Respiration Rat e Blood Gas VENT - CPAP Modality FiO2 30.0 Blood Gas Low 5.0 PEEP Setting Blood Gas 8 Pressure Support Blood Gas DT Notified Whom Blood Gas 12/14/2018 1:55:4 Notified Time 7 PM Medications Medication Current Medications Nicardipine HCl 200 ml @ 50 mls/hr TITRATE IV Last administered on 12/15/18at 06:40; Admin Dose 10 MLS/HR; Start 12/12/18 at 06:00 Propofol 100 ml @ 2.864 mls/ hr Q12H IV Last administered on 12/14/18at 12:19; Admin Dose 28.635 MLS/HR; Start 12/12/18 at 09:00 Enoxaparin Sodium (Lovenox) 30 mg DAILY SC Last administered on 12/15/18 08:31; Admin Dose 30 MG; Start 12/12/18 at 09:00 Pantoprazole (Protonix Iv) 40 mg DAILY@06 IV Last administered on 12/15/18 05:43; Admin Dose 40 MG; Start 12/12/18 at 09:00 Vancomycin HCl (Vanco Iv Per Pharmacy) VANCOMYCIN PER PHARMACY PER PROTOCOL XX ; Start 12/12/18 at 13:00 Cefepime HCl 50 ml @ 100 mls/hr Q12 IVPB Last administered on 12/15/18 08:29; Admin Dose 100 MLS/HR; Start 12/12/18 at 13:00 Methylprednisolone Sodium Succinate (Solu-Medrol) 40 mg Q8 IV Last administered on 12/15/18 05:50; Admin Dose 40 MG; Start 12/13/18 at 14:00 Vancomycin HCl 250 ml @ 125 mls/hr Q12H IVPB Last administered on 12/15/18 03:56; Admin Dose 125 MLS/HR; Start 12/14/18 at 04:00 Miscellaneous Information (*Rx Drug Level Order Reminder*) VANCO TR LEVEL PRIOR... 1500 ONCE XX ; Start 12/15/18 at 15:00; Stop 12/15/18 at 15:01 Metoprolol Tartrate (Lopressor) 25 mg BID PO Last administered on 12/15/18 08:32; Admin Dose 25 MG; Start 12/14/18 at 21:00 Albuterol/ Ipratropium (Duoneb) 3 ml Q4H RESP THERAPY HHN Last administered on 12/15/18 08:21; Admin Dose 3 ML; Start 12/14/18 at 17:00 Hydromorphone HCl (Dilaudid) 1 mg Q4H PRN IV SEVERE PAIN LEVEL 7-10 Last administered on 12/15/18 09:58; Admin Dose 1 MG; Start 12/14/18 at 18:00 Sodium Chloride 1,000 ml @ 50 mls/hr Q20H IV Last administered on 12/14/18 19:06; Admin Dose 50 MLS/HR; Start 12/14/18 at 19:00 Enalaprilat (Vasotec Iv) 1.25 mg Q3 PRN IV ELEVATED BLOOD PRESSURE Last administered on 12/15/18 05:40; Admin Dose 1.25 MG; Start 12/14/18 at 19:00 Diphenhydramine HCl (Benadryl) 25 mg Q6H PRN IV ALLERGIC REACTION Last administered on 12/15/18 01:09; Admin Dose 25 MG; Start 12/14/18 at 19:30 Ondansetron HCl (Zofran Inj) 4 mg Q6H PRN IV NAUSEA AND/OR VOMITING Last administered on 12/14/18at 19:37; Admin Dose 4 MG; Start 12/14/18 at 19:30 Lisinopril (Zestril) 20 mg DAILY PO Last administered on 12/15/18at 08:31; Admin Dose 20 MG; Start 12/15/18 at 09:00 LAINEY TRACY Dec 15, 2018 10:56
--- NOTE | 2018-12-15 11:39 | CONS ---
Assessment/Plan Assessment/Plan Hospital Course (Demo Recall) IMPRESSION: 1. Abnormal echocardiogram, assess for acute coronary syndrome.-neg trop x 2/NL EF with LVDD by echo this admit. neg trop x 3 2. Tachycardia consistent with sinus tachycardia on admission in the setting of respiratory distress, now improved. 3. Hypertensive urgency/emergency in the setting of respiratory distress, now improved. Assess intubation. 4. Respiratory failure, now improved s/p extubation 5. History of hypertension with mainly reasonable BP with a single elevation 6. Anemia. 7. Acidosis. 8. BNP-increased Recc: -ok to tele -s/p gentle lasix diuresis , follow volume status clsoely -Increase BB to improve BP control -Continue abx's/steroids/bronchodilators -Agree with initiation of ACEI -Continue abx's/bronchodilators/steroids Consultation Date/Type/Reason Admit Date/Time Dec 12, 2018 at 06:34 Initial Consult Date 12/12/18 Type of Consult Cardiology Reason for Consultation CHF Requesting Provider: DEBBIE BAKER MD Date/Time of Note DATE: 12/15/18 TIME: 11:33 Exam/Review of Systems Vital Signs Vitals Vital Signs Date Temp Pulse Resp B/P (MAP) Pulse Ox O2 O2 Flow FiO2 Time Delivery Rate 12/15/18 101 16 100 Nasal 2.0 08:22 Cannula 12/15/18 98.6 167/86 08:00 (113) 12/14/18 30 12:38 Intake and Output 12/14/18 12/14/18 12/15/18 1515:00 23:00 07:00 IntakeIntake Total 98.6 ml 500 ml 610 ml OutputOutput Total 280 ml 484 ml 620 ml BalanceBalance -181.4 ml 16 ml -10 ml Exam Exam Review of Systems: CONSTITUTIONAL: No fevers, chills. PULMONARY: s/p extubation CARDIOVASCULAR: No chest pain/palpitations GASTROINTESTINAL: No nausea/vomiting. GENITOURINARY: No hematuria/dysuria. MUSCULOSKELETAL: No myagias/arthalgias. PSYCHIATRIC: The patient denies depression. NEUROLOGIC: No weakness Constitutional: alert, oriented Psych: no complaints Head: normocephalic ENMT: mucosa pink and moist Neck: supple, jvd Respiratory: wheezing (mild exp) Cardiovascular: regular rate and rhythm Gastrointestinal: soft, non-tender Musculoskeletal: muscle tone (normal) Extremities: edema (none) Neurological: other (No focal deficits) Labs Result Diagram: 12/15/18 0400 12/15/18 0400 Results 24hrs Laboratory Tests Test 12/14/18 11:35 12/14/18 13:00 12/15/18 04:00 12/15/18 04:30 White Blood 2.0 L 2.6 #L Count Red Blood Count 3.68 L 4.24 L Hemoglobin 9.1 L 10.3 L Hematocrit 28.2 L 32.4 L Mean 76.6 L 76.4 L Corpuscular Volume Mean 24.7 L 24.3 L Corpuscular Hemoglobin Mean 32.3 31.8 L Corpuscular Hemoglobin Conc ent Red Cell 17.5 H 18.6 H Distribution Width Platelet Count 121 L 121 L Mean Platelet 10.6 H 10.6 H Volume Immature 0.500 H 0.800 H Granulocytes % Neutrophils % 78.0 H 84.8 H Lymphocytes % 18.5 10.9 L Monocytes % 3.0 3.5 Eosinophils % 0.0 0.0 Basophils % 0.0 0.0 Nucleated Red 0.0 0.0 Blood Cells % Immature 0.010 0.020 Granulocytes # Neutrophils # 1.6 2.2 Lymphocytes # 0.4 L 0.3 L Monocytes # 0.1 L 0.1 L Eosinophils # 0.0 0.0 Basophils # 0.0 0.0 Nucleated Red 0.0 0.0 Blood Cells # Blood Gas Blood arterial Blood arterial Specimen Source Arterial Blood 12/14/2018 1:45:0 12/15/2018 5:30:3 Date Drawn 0 PM 6 AM Arterial Blood 7.455 H 7.388 pH (Temp corrected ) Arterial Blood 33.2 L 42.6 pCO2 (Temp correct) Arterial Blood 78.5 L 81.5 pO2 (Temp corrected ) Arterial Blood 22.8 25.1 HCO3 Arterial Blood -0.5 0 Base Excess Arterial Blood 95.2 95.4 Oxygen Saturati on Adrián Test ACCEPTAB ACCEPTAB Arterial Blood Right Radial Right Radial Gas Puncture Site Arterial 0.2 0.3 Blood Carboxyhe moglobin Arterial Blood 0.2 0.2 Methemoglobin Blood Gas A-a 96.4 H 60.6 H O2 Differential Oxyhemoglobin 94.8 94.9 Percent Blood Gas 37.0 37.0 Temperature Blood Gas 14 Actual Respiration Rat e Blood Gas VENT - CPAP NASAL CANNULA Modality FiO2 30.0 27.0 Blood Gas Low 5.0 PEEP Setting Blood Gas 8 Pressure Support Blood Gas DT MA Notified Whom Blood Gas 12/14/2018 1:55:0 12/15/2018 6:57:3 Notified Time 0 PM 9 AM Sodium Level 146 H Potassium Level 4.3 Chloride Level 112 H Carbon Dioxide 26 Level Anion Gap 8 Blood Urea 27 H Nitrogen Creatinine 1.07 Est Glomerular > 60 Filtrat Rate mL/min Glucose Level 160 Calcium Level 8.3 L Test 12/15/18 05:00 Blood Gas Blood arterial Specimen Source Arterial Blood 12/14/2018 1:45:1 Date Drawn 2 PM Arterial Blood 7.455 H pH (Temp corrected ) Arterial Blood 33.2 L pCO2 (Temp correct) Arterial Blood 78.5 L pO2 (Temp corrected ) Arterial Blood 22.8 HCO3 Arterial Blood -0.5 Base Excess Arterial Blood 95.2 Oxygen Saturati on Adrián Test ACCEPTAB Arterial Blood Right Radial Gas Puncture Site Arterial 0.2 Blood Carboxyhe moglobin Arterial Blood 0.2 Methemoglobin Blood Gas A-a 96.4 H O2 Differential Oxyhemoglobin 94.8 Percent Blood Gas 37.0 Temperature Blood Gas 14 Actual Respiration Rat e Blood Gas VENT - CPAP Modality FiO2 30.0 Blood Gas Low 5.0 PEEP Setting Blood Gas 8 Pressure Support Blood Gas DT Notified Whom Blood Gas 12/14/2018 1:55:4 Notified Time 7 PM Medications Medications Current Medications Nicardipine HCl 200 ml @ 50 mls/hr TITRATE IV Last administered on 12/15/18at 06:40; Admin Dose 10 MLS/HR; Start 12/12/18 at 06:00 Propofol 100 ml @ 2.864 mls/ hr Q12H IV Last administered on 12/14/18at 12:19; Admin Dose 28.635 MLS/HR; Start 12/12/18 at 09:00 Enoxaparin Sodium (Lovenox) 30 mg DAILY SC Last administered on 12/15/18at 08:31; Admin Dose 30 MG; Start 12/12/18 at 09:00 Pantoprazole (Protonix Iv) 40 mg DAILY@06 IV Last administered on 12/15/18at 05:43; Admin Dose 40 MG; Start 12/12/18 at 09:00 Vancomycin HCl (Vanco Iv Per Pharmacy) VANCOMYCIN PER PHARMACY PER PROTOCOL XX ; Start 12/12/18 at 13:00 Cefepime HCl 50 ml @ 100 mls/hr Q12 IVPB Last administered on 12/15/18 08:29; Admin Dose 100 MLS/HR; Start 12/12/18 at 13:00 Methylprednisolone Sodium Succinate (Solu-Medrol) 40 mg Q8 IV Last administered on 12/15/18 05:50; Admin Dose 40 MG; Start 12/13/18 at 14:00 Vancomycin HCl 250 ml @ 125 mls/hr Q12H IVPB Last administered on 12/15/18 03:56; Admin Dose 125 MLS/HR; Start 12/14/18 at 04:00 Miscellaneous Information (*Rx Drug Level Order Reminder*) VANCO TR LEVEL PRIOR ... 1500 ONCE XX ; Start 12/15/18 at 15:00; Stop 12/15/18 at 15:01 Metoprolol Tartrate (Lopressor) 25 mg BID PO Last administered on 12/15/18 08:32; Admin Dose 25 MG; Start 12/14/18 at 21:00 Albuterol/ Ipratropium (Duoneb) 3 ml Q4H RESP THERAPY HHN Last administered on 12/15/18 08:21; Admin Dose 3 ML; Start 12/14/18 at 17:00 Hydromorphone HCl (Dilaudid) 1 mg Q4H PRN IV SEVERE PAIN LEVEL 7-10 Last administered on 12/15/18 09:58; Admin Dose 1 MG; Start 12/14/18 at 18:00 Sodium Chloride 1,000 ml @ 50 mls/hr Q20H IV Last administered on 12/14/18 19:06; Admin Dose 50 MLS/HR; Start 12/14/18 at 19:00 Enalaprilat (Vasotec Iv) 1.25 mg Q3 PRN IV ELEVATED BLOOD PRESSURE Last administered on 12/15/18 05:40; Admin Dose 1.25 MG; Start 12/14/18 at 19:00 Diphenhydramine HCl (Benadryl) 25 mg Q6H PRN IV ALLERGIC REACTION Last administered on 12/15/18 01:09; Admin Dose 25 MG; Start 12/14/18 at 19:30 Ondansetron HCl (Zofran Inj) 4 mg Q6H PRN IV NAUSEA AND/OR VOMITING Last administered on 12/14/18at 19:37; Admin Dose 4 MG; Start 12/14/18 at 19:30 Lisinopril (Zestril) 20 mg DAILY PO Last administered on 12/15/18at 08:31; Admin Dose 20 MG; Start 12/15/18 at 09:00 JATIN DOBBS Dec 15, 2018 11:39
[2018-12-15] MEDS: ONDANSETRON 4 MG INJ IV PRN ×2 (12:55→20:17)
[2018-12-15] MEDS: SOD CHLORIDE 0.9% 1,000 ML IV SCH (12:56)
--- NOTE | 2018-12-15 14:17 | PN ---
Date/Time of Note Date/Time of Note DATE: 12/15/18 TIME: 14:06 Assessment/Plan VTE Prophylaxis Risk score (from Ns)>0 risk: 9 SCD applied (from Ns): Yes Pharmacological prophylaxis: LMWH Lines/Catheters IV Catheter Type (from Nrsg): Peripheral IV Central line still needed: Yes Urinary Cath still in place: No Reason Cath still needed: urinary retention Assessment/Plan Hospital Course Patient is awake alert, comfortable on supplemental oxygen via nasal cannula at rest, blood pressure is better controlled. Pending telemetry transfer. Assessment/Plan -Acute hypoxemic and hypercapnic respiratory failure requiring intubation, Etiology of respiratory failure likely related to a combination of proximal bronchial obstruction 2/2 tumor and acute COPD exacerbation +/- CHF. Patient is currently extubated on supplemental oxygen. Dr. Medina is following in pulmonology consultation. -Mediastinal Mass--Liposarcoma. S/p chemotherapy at [facility]. -Dysphagia secondary to mechanical compression of the esophagus by the tumor -Pancytopenia most probably related to chemotherapy -Hypertensive urgency, resolved. Dr. Navas is following in cardiology consultation. -Stage I diastolic dysfunction with ejection fraction of 55% -Bacteremia, continue antibiotics per ID. Dr. Grayson is following in infection disease consultation. -Transaminitis Critical care time spent is 30 minutes. Further recommendations based on clinical course. Plan of care discussed with Dr. James Result Diagram: 12/15/18 0400 12/15/18 0400 Results 24hrs Laboratory Tests Test 12/15/18 04:00 12/15/18 04:30 12/15/18 05:00 White Blood Count 2.6 #L Red Blood Count 4.24 L Hemoglobin 10.3 L Hematocrit 32.4 L Mean Corpuscular Volume 76.4 L Mean Corpuscular 24.3 L Hemoglobin Mean Corpuscular 31.8 L Hemoglobin Concent Red Cell Distribution 18.6 H Width Platelet Count 121 L Mean Platelet Volume 10.6 H Immature Granulocytes % 0.800 H Neutrophils % 84.8 H Lymphocytes % 10.9 L Monocytes % 3.5 Eosinophils % 0.0 Basophils % 0.0 Nucleated Red Blood 0.0 Cells % Immature Granulocytes # 0.020 Neutrophils # 2.2 Lymphocytes # 0.3 L Monocytes # 0.1 L Eosinophils # 0.0 Basophils # 0.0 Nucleated Red Blood 0.0 Cells # Sodium Level 146 H Potassium Level 4.3 Chloride Level 112 H Carbon Dioxide Level 26 Anion Gap 8 Blood Urea Nitrogen 27 H Creatinine 1.07 Est Glomerular Filtrat > 60 Rate mL/min Glucose Level 160 Calcium Level 8.3 L Total Bilirubin 0.3 Direct Bilirubin 0.00 Indirect Bilirubin 0.3 Aspartate Amino 74 H Transf (AST/SGOT) Alanine 206 H Aminotransferase (ALT/SG PT) Alkaline Phosphatase 77 Total Protein 6.2 Albumin 3.4 Blood Gas Specimen Blood arterial Blood arterial Source Arterial Blood Date 12/15/2018 5:30:36 AM 12/14/2018 1:45:12 PM Drawn Arterial Blood pH 7.388 7.455 H (Temp corrected) Arterial Blood pCO2 42.6 33.2 L (Temp correct) Arterial Blood pO2 81.5 78.5 L (Temp corrected) Arterial Blood HCO3 25.1 22.8 Arterial Blood Base 0 -0.5 Excess Arterial Blood 95.4 95.2 Oxygen Saturation Adrián Test ACCEPTAB ACCEPTAB Arterial Blood Gas Right Radial Right Radial Puncture Site Arterial 0.3 0.2 Blood Carboxyhemoglobin Arterial Blood 0.2 0.2 Methemoglobin Blood Gas A-a O2 60.6 H 96.4 H Differential Oxyhemoglobin Percent 94.9 94.8 Blood Gas Temperature 37.0 37.0 Blood Gas Modality NASAL CANNULA VENT - CPAP FiO2 27.0 30.0 Blood Gas Notified Whom KRISTEN DT Blood Gas Notified Time 12/15/2018 6:57:39 AM 12/14/2018 1:55:47 PM Blood Gas Actual 14 Respiration Rate Blood Gas Low PEEP 5.0 Setting Blood Gas Pressure 8 Support Exam/Review of Systems Exam Vitals Vital Signs Date Temp Pulse Resp B/P (MAP) Pulse Ox O2 O2 Flow FiO2 Time Delivery Rate 12/15/18 89 12:00 12/15/18 98.6 12 163/93 100 Nasal 2.0 12:00 (116) Cannula 12/14/18 30 12:38 Intake and Output 12/14/18 12/14/18 12/15/18 1515:00 23:00 07:00 IntakeIntake Total 98.6 ml 500 ml 610 ml OutputOutput Total 280 ml 484 ml 620 ml BalanceBalance -181.4 ml 16 ml -10 ml Constitutional: alert, oriented Respiratory: diminished breath sounds Cardiovascular: regular rate and rhythm Gastrointestinal: soft, non-tender Extremities: normal pulses Neurological: nl mental status Skin: nl turgor Results Results 24hrs Laboratory Tests Test 12/15/18 04:00 12/15/18 04:30 12/15/18 05:00 White Blood Count 2.6 #L Red Blood Count 4.24 L Hemoglobin 10.3 L Hematocrit 32.4 L Mean Corpuscular Volume 76.4 L Mean Corpuscular 24.3 L Hemoglobin Mean Corpuscular 31.8 L Hemoglobin Concent Red Cell Distribution 18.6 H Width Platelet Count 121 L Mean Platelet Volume 10.6 H Immature Granulocytes % 0.800 H Neutrophils % 84.8 H Lymphocytes % 10.9 L Monocytes % 3.5 Eosinophils % 0.0 Basophils % 0.0 Nucleated Red Blood 0.0 Cells % Immature Granulocytes # 0.020 Neutrophils # 2.2 Lymphocytes # 0.3 L Monocytes # 0.1 L Eosinophils # 0.0 Basophils # 0.0 Nucleated Red Blood 0.0 Cells # Sodium Level 146 H Potassium Level 4.3 Chloride Level 112 H Carbon Dioxide Level 26 Anion Gap 8 Blood Urea Nitrogen 27 H Creatinine 1.07 Est Glomerular Filtrat > 60 Rate mL/min Glucose Level 160 Calcium Level 8.3 L Total Bilirubin 0.3 Direct Bilirubin 0.00 Indirect Bilirubin 0.3 Aspartate Amino 74 H Transf (AST/SGOT) Alanine 206 H Aminotransferase (ALT/SG PT) Alkaline Phosphatase 77 Total Protein 6.2 Albumin 3.4 Blood Gas Specimen Blood arterial Blood arterial Source Arterial Blood Date 12/15/2018 5:30:36 AM 12/14/2018 1:45:12 PM Drawn Arterial Blood pH 7.388 7.455 H (Temp corrected) Arterial Blood pCO2 42.6 33.2 L (Temp correct) Arterial Blood pO2 81.5 78.5 L (Temp corrected) Arterial Blood HCO3 25.1 22.8 Arterial Blood Base 0 -0.5 Excess Arterial Blood 95.4 95.2 Oxygen Saturation Adrián Test ACCEPTAB ACCEPTAB Arterial Blood Gas Right Radial Right Radial Puncture Site Arterial 0.3 0.2 Blood Carboxyhemoglobin Arterial Blood 0.2 0.2 Methemoglobin Blood Gas A-a O2 60.6 H 96.4 H Differential Oxyhemoglobin Percent 94.9 94.8 Blood Gas Temperature 37.0 37.0 Blood Gas Modality NASAL CANNULA VENT - CPAP FiO2 27.0 30.0 Blood Gas Notified Whom MA DT Blood Gas Notified Time 12/15/2018 6:57:39 AM 12/14/2018 1:55:47 PM Blood Gas Actual 14 Respiration Rate Blood Gas Low PEEP 5.0 Setting Blood Gas Pressure 8 Support Medications Medication Current Medications Nicardipine HCl 200 ml @ 50 mls/hr TITRATE IV Last administered on 12/15/18 06:40; Admin Dose 10 MLS/HR; Start 12/12/18 at 06:00 Propofol 100 ml @ 2.864 mls/ hr Q12H IV Last administered on 12/14/18 12:19; Admin Dose 28.635 MLS/HR; Start 12/12/18 at 09:00 Enoxaparin Sodium (Lovenox) 30 mg DAILY SC Last administered on 12/15/18 08:31; Admin Dose 30 MG; Start 12/12/18 at 09:00 Pantoprazole (Protonix Iv) 40 mg DAILY@06 IV Last administered on 12/15/18 05:43; Admin Dose 40 MG; Start 12/12/18 at 09:00 Vancomycin HCl (Vanco Iv Per Pharmacy) VANCOMYCIN PER PHARMACY PER PROTOCOL XX ; Start 12/12/18 at 13:00 Cefepime HCl 50 ml @ 100 mls/hr Q12 IVPB Last administered on 12/15/18 08:29; Admin Dose 100 MLS/HR; Start 12/12/18 at 13:00 Methylprednisolone Sodium Succinate (Solu-Medrol) 40 mg Q8 IV Last administered on 12/15/18 13:40; Admin Dose 40 MG; Start 12/13/18 at 14:00 Vancomycin HCl 250 ml @ 125 mls/hr Q12H IVPB Last administered on 12/15/18 03:56; Admin Dose 125 MLS/HR; Start 12/14/18 at 04:00 Miscellaneous Information (*Rx Drug Level Order Reminder*) VANCO TR LEVEL PRIOR... 1500 ONCE XX ; Start 12/15/18 at 15:00; Stop 12/15/18 at 15:01 Albuterol/ Ipratropium (Duoneb) 3 ml Q4H RESP THERAPY HHN Last administered on 12/15/18 08:21; Admin Dose 3 ML; Start 12/14/18 at 17:00 Hydromorphone HCl (Dilaudid) 1 mg Q4H PRN IV SEVERE PAIN LEVEL 7-10 Last administered on 12/15/18 14:05; Admin Dose 1 MG; Start 12/14/18 at 18:00 Sodium Chloride 1,000 ml @ 50 mls/hr Q20H IV Last administered on 12/15/18 12:56; Admin Dose 50 MLS/HR; Start 12/14/18 at 19:00 Enalaprilat (Vasotec Iv) 1.25 mg Q3 PRN IV ELEVATED BLOOD PRESSURE Last administered on 12/15/18 13:40; Admin Dose 1.25 MG; Start 12/14/18 at 19:00 Diphenhydramine HCl (Benadryl) 25 mg Q6H PRN IV ALLERGIC REACTION Last administered on 12/15/18 01:09; Admin Dose 25 MG; Start 12/14/18 at 19:30 Ondansetron HCl (Zofran Inj) 4 mg Q6H PRN IV NAUSEA AND/OR VOMITING Last administered on 12/15/18 12:55; Admin Dose 4 MG; Start 12/14/18 at 19:30 Lisinopril (Zestril) 20 mg DAILY PO Last administered on 12/15/18 08:31; Admin Dose 20 MG; Start 12/15/18 at 09:00 Metoprolol Tartrate (Lopressor) 50 mg BID PO ; Start 12/15/18 at 21:00 TERA GREEN Dec 15, 2018 14:16
--- NOTE | 2018-12-15 14:20 | CONS ---
Assessment/Plan Assessment/Plan Hospital Course (Demo Recall) Patient was extubated yesterday sleeping and comfortable on nasal cannula no fevers overnight. WBC 12.6 platelets 121 neutrophils 84.8 BUN 27 creatinine 1.07 Microbiology: Blood culture growing staph 1 set, repeat bld cx neg, urine culture negative CT of the chest and thorax revealed no evidence of pulmonary embolism. Please see full report Indwelling: Right chest Port-A-Cath, Shields catheter Allergies: ertapenem amoxicillin and sulfa Antimicrobials: Vancomycin cefepime Physical examination: This is a well-nourished well-developed middle-aged [place] man who is in no distress. Head atraumatic normocephalic sclera nonicteric. Neck is supple. Chest rise symmetrical, breath sounds diminished bases. Heart: S1-S2. Abdomen soft bowel sounds present extremities without cyanosis Assessment: 1. Acute hypoxemic respiratory failure secondary to large posterior mediastinal tumor, rule out aspiration 2. Bacteremia, rule out line sepsis 3. Mediastinal mass/liposarcoma, status post chemotherapy at [facility] 4. Hypertension 5. Pancytopenia Plan: Stable post extubation, repeat bld cx neg, continue abx, pulmonary rec-s Consultation Date/Type/Reason Admit Date/Time Dec 12, 2018 at 06:34 Initial Consult Date 12/12/18 Type of Consult id Requesting Provider: DEBBIE BAKER MD Date/Time of Note DATE: 12/15/18 TIME: 14:15 Exam/Review of Systems Exam Vitals Vital Signs Date Temp Pulse Resp B/P (MAP) Pulse Ox O2 O2 Flow FiO2 Time Delivery Rate 12/15/18 89 12:00 12/15/18 98.6 12 163/93 100 Nasal 2.0 12:00 (116) Cannula 12/14/18 30 12:38 Intake and Output 12/14/18 12/14/18 12/15/18 1515:00 23:00 07:00 IntakeIntake Total 98.6 ml 500 ml 610 ml OutputOutput Total 280 ml 484 ml 620 ml BalanceBalance -181.4 ml 16 ml -10 ml Results Result Diagram: 12/15/18 0400 12/15/18 0400 Results 24hrs Laboratory Tests Test 12/15/18 04:00 12/15/18 04:30 12/15/18 05:00 White Blood Count 2.6 #L Red Blood Count 4.24 L Hemoglobin 10.3 L Hematocrit 32.4 L Mean Corpuscular Volume 76.4 L Mean Corpuscular 24.3 L Hemoglobin Mean Corpuscular 31.8 L Hemoglobin Concent Red Cell Distribution 18.6 H Width Platelet Count 121 L Mean Platelet Volume 10.6 H Immature Granulocytes % 0.800 H Neutrophils % 84.8 H Lymphocytes % 10.9 L Monocytes % 3.5 Eosinophils % 0.0 Basophils % 0.0 Nucleated Red Blood 0.0 Cells % Immature Granulocytes # 0.020 Neutrophils # 2.2 Lymphocytes # 0.3 L Monocytes # 0.1 L Eosinophils # 0.0 Basophils # 0.0 Nucleated Red Blood 0.0 Cells # Sodium Level 146 H Potassium Level 4.3 Chloride Level 112 H Carbon Dioxide Level 26 Anion Gap 8 Blood Urea Nitrogen 27 H Creatinine 1.07 Est Glomerular Filtrat > 60 Rate mL/min Glucose Level 160 Calcium Level 8.3 L Total Bilirubin 0.3 Direct Bilirubin 0.00 Indirect Bilirubin 0.3 Aspartate Amino 74 H Transf (AST/SGOT) Alanine 206 H Aminotransferase (ALT/SG PT) Alkaline Phosphatase 77 Total Protein 6.2 Albumin 3.4 Blood Gas Specimen Blood arterial Blood arterial Source Arterial Blood Date 12/15/2018 5:30:36 AM 12/14/2018 1:45:12 PM Drawn Arterial Blood pH 7.388 7.455 H (Temp corrected) Arterial Blood pCO2 42.6 33.2 L (Temp correct) Arterial Blood pO2 81.5 78.5 L (Temp corrected) Arterial Blood HCO3 25.1 22.8 Arterial Blood Base 0 -0.5 Excess Arterial Blood 95.4 95.2 Oxygen Saturation Adrián Test ACCEPTAB ACCEPTAB Arterial Blood Gas Right Radial Right Radial Puncture Site Arterial 0.3 0.2 Blood Carboxyhemoglobin Arterial Blood 0.2 0.2 Methemoglobin Blood Gas A-a O2 60.6 H 96.4 H Differential Oxyhemoglobin Percent 94.9 94.8 Blood Gas Temperature 37.0 37.0 Blood Gas Modality NASAL CANNULA VENT - CPAP FiO2 27.0 30.0 Blood Gas Notified Whom KRISTEN DT Blood Gas Notified Time 12/15/2018 6:57:39 AM 12/14/2018 1:55:47 PM Blood Gas Actual 14 Respiration Rate Blood Gas Low PEEP 5.0 Setting Blood Gas Pressure 8 Support Medications Medication Current Medications Nicardipine HCl 200 ml @ 50 mls/hr TITRATE IV Last administered on 12/15/18 06:40; Admin Dose 10 MLS/HR; Start 12/12/18 at 06:00 Propofol 100 ml @ 2.864 mls/ hr Q12H IV Last administered on 12/14/18 12:19; Admin Dose 28.635 MLS/HR; Start 12/12/18 at 09:00 Enoxaparin Sodium (Lovenox) 30 mg DAILY SC Last administered on 12/15/18 08:31; Admin Dose 30 MG; Start 12/12/18 at 09:00 Pantoprazole (Protonix Iv) 40 mg DAILY@06 IV Last administered on 12/15/18 05:43; Admin Dose 40 MG; Start 12/12/18 at 09:00 Vancomycin HCl (Vanco Iv Per Pharmacy) VANCOMYCIN PER PHARMACY PER PROTOCOL XX ; Start 12/12/18 at 13:00 Cefepime HCl 50 ml @ 100 mls/hr Q12 IVPB Last administered on 12/15/18 08:29; Admin Dose 100 MLS/HR; Start 12/12/18 at 13:00 Methylprednisolone Sodium Succinate (Solu-Medrol) 40 mg Q8 IV Last administered on 12/15/18 13:40; Admin Dose 40 MG; Start 12/13/18 at 14:00 Vancomycin HCl 250 ml @ 125 mls/hr Q12H IVPB Last administered on 12/15/18 03:56; Admin Dose 125 MLS/HR; Start 12/14/18 at 04:00 Miscellaneous Information (*Rx Drug Level Order Reminder*) VANCO TR LEVEL PRIOR... 1500 ONCE XX ; Start 12/15/18 at 15:00; Stop 12/15/18 at 15:01 Albuterol/ Ipratropium (Duoneb) 3 ml Q4H RESP THERAPY HHN Last administered on 12/15/18 08:21; Admin Dose 3 ML; Start 12/14/18 at 17:00 Hydromorphone HCl (Dilaudid) 1 mg Q4H PRN IV SEVERE PAIN LEVEL 7-10 Last administered on 12/15/18 14:05; Admin Dose 1 MG; Start 12/14/18 at 18:00 Sodium Chloride 1,000 ml @ 50 mls/hr Q20H IV Last administered on 12/15/18 12:56; Admin Dose 50 MLS/HR; Start 12/14/18 at 19:00 Enalaprilat (Vasotec Iv) 1.25 mg Q3 PRN IV ELEVATED BLOOD PRESSURE Last adminis tered on 12/15/18 13:40; Admin Dose 1.25 MG; Start 12/14/18 at 19:00 Diphenhydramine HCl (Benadryl) 25 mg Q6H PRN IV ALLERGIC REACTION Last administered on 12/15/18 01:09; Admin Dose 25 MG; Start 12/14/18 at 19:30 Ondansetron HCl (Zofran Inj) 4 mg Q6H PRN IV NAUSEA AND/OR VOMITING Last administered on 12/15/18 12:55; Admin Dose 4 MG; Start 12/14/18 at 19:30 Lisinopril (Zestril) 20 mg DAILY PO Last administered on 12/15/18 08:31; Admin Dose 20 MG; Start 12/15/18 at 09:00 Metoprolol Tartrate (Lopressor) 50 mg BID PO ; Start 12/15/18 at 21:00 MAYELA TUCKER NP Dec 15, 2018 14:20
[2018-12-15] MEDS: ATENOLOL 50 MG TAB PO SCH (16:23)
[2018-12-15] MEDS: oxyCODONE (CR) 20 MG TAB [oxyCONTIN] PO SCH (16:56)
[2018-12-15] MEDS: ARFORMOTEROL TARTRATE 15MCG/2 ML AMP INH SCH (20:00)
[2018-12-15] MEDS: BUDESONIDE (NEB) 0.5MG/2ML AMP INH SCH (20:31)
[2018-12-15] MEDS ORDERED: METOPROLOL 50 MG TAB PO SCH (21:00)
[2018-12-15] MEDS: GABAPENTIN 300 MG CAP PO SCH (22:02)
[2018-12-16] VITALS (23 sets, daily range): BP systolic 127–168; BP diastolic 72–98; PULSE 71–83; RESP 0–29
[2018-12-16] MEDS: oxyCODONE (CR) 20 MG TAB [oxyCONTIN] PO SCH ×4 (00:02→20:31)
[2018-12-16] MEDS: ALBUTEROL/IPRATROPIUM (NEB) 3 ML AMP HHN SCH ×2 (01:06→04:28)
[2018-12-16] MEDS: SOD CHLORIDE 0.9% 1,000 ML IV SCH (04:46)
[2018-12-16] MEDS: VANCOMYCIN 1 GM 250 ML IVPB SCH ×2 (04:46→15:45)
[2018-12-16] MEDS: ONDANSETRON 4 MG INJ IV PRN (05:14)
[2018-12-16] MEDS: METHYLPREDNISOLONE 40 MG INJ IV SCH ×3 (05:14→22:13)
[2018-12-16] MEDS: PANTOPRAZOLE 40 MG INJ IV SCH (05:14)
--- NOTE | 2018-12-16 08:44 | CONS ---
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 Eating soft mechanical diet. Denies dysphagia. Had BM yesterday. Continues to have mild nausea alleviated with Zofran. 1. 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 2. Respiratory failure secondary to COPD exacerbation and pneumonia, s/p extubation -resolved 3. Hypertension. 4. Dyslipidemia. 5. Transaminitis. -trending down -likely secondary to chemo or fatty liver 6. Fatty liver 7. Dysphagia secondary to mechanical compression of the esophagus by the tumor 8. Pancytopenia most probably related to chemotherapy Plan Soft mechanical diet with Aspiration precautions Monitor LFTs -trending down Monitor CBC Pt examined and plan of care discussed with Dr. Perkins Consultation Date/Type/Reason Admit Date/Time Dec 12, 2018 at 06:34 Initial Consult Date 12/12/18 Requesting Provider: DEBBIE BAKER MD Date/Time of Note DATE: 12/16/18 TIME: 08:40 Exam/Review of Systems Exam Vitals Vital Signs Date Temp Pulse Resp B/P (MAP) Pulse Ox O2 O2 Flow FiO2 Time Delivery Rate 12/16/18 79 14 97 Nasal 2.0 04:29 Cannula 12/16/18 98.4 154/89 04:00 (110) 12/14/18 30 12:38 Intake and Output 12/15/18 12/15/18 12/16/18 1515:00 23:00 07:00 IntakeIntake Total 612 ml 771 ml 1850 ml OutputOutput Total 800 ml 550 ml 715 ml BalanceBalance -188 ml 221 ml 1135 ml Results Result Diagram: 12/16/18 0447 12/16/18 0447 Results 24hrs Laboratory Tests Test 12/15/18 15:06 12/16/18 04:45 12/16/18 04:47 Vancomycin Level Trough 13.8 Phosphorus Level 3.5 Magnesium Level 2.5 White Blood Count 1.5 #L Red Blood Count 3.88 L Hemoglobin 9.8 L Hematocrit 30.4 L Mean Corpuscular Volume 78.4 L Mean Corpuscular Hemoglobin 25.3 L Mean Corpuscular Hemoglobin Concent 32.2 Red Cell Distribution Width 18.6 H Platelet Count 95 #L Mean Platelet Volume 9.8 Immature Granulocytes % 0.700 H Neutrophils % Segmented Neutrophils % (Manual) 66 Band Neutrophils % (Manual) 1 Lymphocytes % Lymphocytes % (Manual) 24 Reactive Lymphocytes % (Manual) 6 H Monocytes % Monocytes % (Manual) 3 Eosinophils % Basophils % Nucleated Red Blood Cells % 0.0 Immature Granulocytes # 0.010 Neutrophils # Neutrophils # (Manual) 1.0 L Band Neutrophils # 0.0 Lymphocytes (Manual) 0.3 L Lymphocytes # Reactive Lymphocytes # 0.0 Monocytes # Monocytes # (Manual) 0.0 L Eosinophils # Basophils # Nucleated Red Blood Cells # Platelet Estimate DECREASED Giant Platelets 5 H Polychromasia 3+ Poikilocytosis 2+ Anisocytosis 2+ Microcytosis 1+ Tear Drop Cells 1+ Ovalocytes 1+ Sodium Level 141 Potassium Level 4.8 Chloride Level 107 Carbon Dioxide Level 28 Anion Gap 6 Blood Urea Nitrogen 25 H Creatinine 0.84 Est Glomerular Filtrat Rate mL/min > 60 Glucose Level 138 Calcium Level 8.2 L Total Bilirubin 0.2 Direct Bilirubin 0.00 Indirect Bilirubin 0.2 Aspartate Amino Transf (AST/SGOT) 64 H Alanine Aminotransferase (ALT/SGPT) 160 H Alkaline Phosphatase 60 Total Protein 5.4 L Albumin 3.0 L Globulin 2.40 Albumin/Globulin Ratio 1.25 Medications Medication Current Medications Nicardipine HCl 200 ml @ 50 mls/hr TITRATE IV Last administered on 12/15/18at 14:44; Admin Dose 10 MLS/HR; Start 12/12/18 at 06:00 Enoxaparin Sodium (Lovenox) 30 mg DAILY SC Last administered on 12/15/18at 08:31; Admin Dose 30 MG; Start 12/12/18 at 09:00 Pantoprazole (Protonix Iv) 40 mg DAILY@06 IV Last administered on 12/16/18at 05:14; Admin Dose 40 MG; Start 12/12/18 at 09:00 Vancomycin HCl (Vanco Iv Per Pharmacy) VANCOMYCIN PER PHARMACY PER PROTOCOL XX ; Start 12/12/18 at 13:00 Cefepime HCl 50 ml @ 100 mls/hr Q12 IVPB Last administered on 12/15/18at 22:02; Admin Dose 100 MLS/HR; Start 12/12/18 at 13:00 Methylprednisolone Sodium Succinate (Solu-Medrol) 40 mg Q8 IV Last administered on 12/16/18 05:14; Admin Dose 40 MG; Start 12/13/18 at 14:00 Vancomycin HCl 250 ml @ 125 mls/hr Q12H IVPB Last administered on 12/16/18 04:46; Admin Dose 125 MLS/HR; Start 12/14/18 at 04:00 Albuterol/ Ipratropium (Duoneb) 3 ml Q4H RESP THERAPY HHN Last administered on 12/16/18 04:28; Admin Dose 3 ML; Start 12/14/18 at 17:00 Hydromorphone HCl (Dilaudid) 1 mg Q4H PRN IV SEVERE PAIN LEVEL 7-10 Last administered on 12/15/18 14:05; Admin Dose 1 MG; Start 12/14/18 at 18:00 Enalaprilat (Vasotec Iv) 1.25 mg Q3 PRN IV ELEVATED BLOOD PRESSURE Last administered on 12/15/18 13:40; Admin Dose 1.25 MG; Start 12/14/18 at 19:00 Diphenhydramine HCl (Benadryl) 25 mg Q6H PRN IV ALLERGIC REACTION Last administered on 12/15/18 01:09; Admin Dose 25 MG; Start 12/14/18 at 19:30 Ondansetron HCl (Zofran Inj) 4 mg Q6H PRN IV NAUSEA AND/OR VOMITING Last administered on 12/16/18 05:14; Admin Dose 4 MG; Start 12/14/18 at 19:30 Aspirin (Aspirin) 81 mg DAILY PO ; Start 12/16/18 at 09:00 Atenolol (Tenormin) 50 mg BID PO Last administered on 12/15/18 16:23; Admin Dose 50 MG; Start 12/15/18 at 17:00 Arformoterol Tartrate (Brovana (Neb)) 2 ml BID RESP THERAPY INH ; Start 12/15/18 at 20:00 Clonidine (Catapres) 0.1 mg BID PO Last administered on 12/15/18 22:01; Admin Dose 0.1 MG; Start 12/15/18 at 15:00 Oxycodone HCl (Oxycontin) 20 mg TID PO Last administered on 12/16/18 00:02; Admin Dose 20 MG; Start 12/15/18 at 17:00 Gabapentin (Neurontin) 300 mg TID PO Last administered on 12/15/18at 22:02; Admin Dose 300 MG; Start 12/15/18 at 21:00 Budesonide (Pulmicort (Neb)) 0.5 mg BID RESP THERAPY INH Last administered on 12/15/18at 20:31; Admin Dose 0.5 MG; Start 12/15/18 at 20:00 Lisinopril (Zestril) 20 mg BID PO ; Start 12/16/18 at 09:00 RENNY DANG Dec 16, 2018 08:44
--- NOTE | 2018-12-16 08:54 | PN ---
DATE: 12/16/2018 SUBJECTIVE: The patient remains stable, currently off Cardene drip. No other acute events noted. N o hemoptysis, hematemesis, or hematochezia. OBJECTIVE: VITAL SIGNS: Blood pressure is 154/89, respirations 11, pulse 79, temperature 98.4. HEENT: Head is normocephalic. NECK: Supple. HEART: Regular rate. LUNGS: Show diminished breath sounds at the base. ABDOMEN: Soft, nontender to palpation. No rebound or guarding. EXTREMITIES: Negative for clubbing, cyanosis, no edema. DERMATOLOGIC: No rashes. MUSCULOSKELETAL: No joint effusion. NEUROLOGIC: No change in exam. MEDICATIONS: Reviewed. LABORATORY DATA: Reviewed. ASSESSMENT AND PLAN: 1. Nonoliguric acute kidney injury with previously normal baseline creatinine. Etiology of acute ki dney injury is secondary to hemodynamics, possible contrast-associated nephropathy. The patient's re nal function has improved. At this point, continue current treatment plans, supportive care, renally dose all medicines. 2. Hypertension. Blood pressure remains elevated, but slowly improving, currently off Cardene drip. Continue current blood pressure regimen. We will increase lisinopril to 20 mg b.i.d. We will adju st medications as needed. 3. Respiratory failure, status post extubation. Continue to monitor. Follow up with pulmonary. 4. Liposarcoma with possible relapse. The patient is on chemotherapy, last chemotherapy approximate ly 2 weeks ago. Continue to monitor. 5. Right pleural effusion secondary to pneumonia likely sarcoma, continue to monitor. 6. History of chronic obstructive pulmonary disease. Continue current medical management. 7. Anemia. Continue to monitor hemoglobin and hematocrit levels. 8. Mineral bone disorder, monitor calcium and phosphorus levels. 9. Dyslipidemia. Continue statin therapy. 10. Encephalopathy. The patient's mental status is improving. Continue to monitor. 11. Bacteremia, possible line infection. The patient's cultures were reviewed. Continue medical ma nagement. Continue antibiotic therapy. Follow up with Infectious Disease. Dictated By: KIP LÓPEZ/NTS Conf#: [id number] DID#: [id number] CC: DEBBIE BAKER MD; SONU WILHELM MD;*EndCC*
--- NOTE | 2018-12-16 08:56 | CONS ---
Consult Date/Type/Reason Admit Date/Time Dec 12, 2018 at 06:34 Initial Consult Date 12/12/18 Type of Consultation: Pulm/CCM Requesting Provider: DEBBIE BAKER MD Date/Time of Note DATE: 12/16/18 TIME: 08:54 Subjective NO acute events - pt feels better now- alert, no CP noted ROS: No fever, no chills, no nausea, no vomiting, no diarrhea/constipation No recent weight changes No chest pain, no PND, no orthopnea - mild SOB No dizziness, blurred vision No thirst, no heat or cold intolerance Objective Vitals Vital Signs Date Temp Pulse Resp B/P (MAP) Pulse Ox O2 O2 Flow FiO2 Time Delivery Rate 12/16/18 79 14 97 Nasal 2.0 04:29 Cannula 12/16/18 98.4 154/89 04:00 (110) 12/14/18 30 12:38 Intake and Output 12/15/18 12/15/18 12/16/18 1414:59 22:59 06:59 IntakeIntake Total 572 ml 821 ml 1900 ml OutputOutput Total 750 ml 700 ml 715 ml BalanceBalance -178 ml 121 ml 1185 ml Exam General: WN/WD/NAD, AOx 3 HEENT: Unicetric/atraumatic/EOMI ( follows commands) NECK: JVD elevated, no thyromegaly Lymph: no lymphadenopathy HEART: regular with no S3, II/ systolic murmur at apex, PMI L LUNGS: Coarse sounds ABD: soft, NT, ND, +BS : Intact Neuro: non focal SKIN: chronic changes EXT: trace edema Results/Medications Result Diagram: 12/16/1844612/16/18446 Results 24 hrs Laboratory Tests Test 12/15/18 15:06 12/16/18 04:45 12/16/18 04:47 Vancomycin Level Trough 13.8 Phosphorus Level 3.5 Magnesium Level 2.5 White Blood Count 1.5 #L Red Blood Count 3.88 L Hemoglobin 9.8 L Hematocrit 30.4 L Mean Corpuscular Volume 78.4 L Mean Corpuscular Hemoglobin 25.3 L Mean Corpuscular Hemoglobin Concent 32.2 Red Cell Distribution Width 18.6 H Platelet Count 95 #L Mean Platelet Volume 9.8 Immature Granulocytes % 0.700 H Neutrophils % Segmented Neutrophils % (Manual) 66 Band Neutrophils % (Manual) 1 Lymphocytes % Lymphocytes % (Manual) 24 Reactive Lymphocytes % (Manual) 6 H Monocytes % Monocytes % (Manual) 3 Eosinophils % Basophils % Nucleated Red Blood Cells % 0.0 Immature Granulocytes # 0.010 Neutrophils # Neutrophils # (Manual) 1.0 L Band Neutrophils # 0.0 Lymphocytes (Manual) 0.3 L Lymphocytes # Reactive Lymphocytes # 0.0 Monocytes # Monocytes # (Manual) 0.0 L Eosinophils # Basophils # Nucleated Red Blood Cells # Platelet Estimate DECREASED Giant Platelets 5 H Polychromasia 3+ Poikilocytosis 2+ Anisocytosis 2+ Microcytosis 1+ Tear Drop Cells 1+ Ovalocytes 1+ Sodium Level 141 Potassium Level 4.8 Chloride Level 107 Carbon Dioxide Level 28 Anion Gap 6 Blood Urea Nitrogen 25 H Creatinine 0.84 Est Glomerular Filtrat Rate mL/min > 60 Glucose Level 138 Calcium Level 8.2 L Total Bilirubin 0.2 Direct Bilirubin 0.00 Indirect Bilirubin 0.2 Aspartate Amino Transf (AST/SGOT) 64 H Alanine Aminotransferase (ALT/SGPT) 160 H Alkaline Phosphatase 60 Total Protein 5.4 L Albumin 3.0 L Globulin 2.40 Albumin/Globulin Ratio 1.25 Home Meds Active Scripts Hydralazine Hcl* (Apresoline*) 50 Mg Tab, 50 MG PO Q8, #90 TAB Prov:TERA GREEN 07/30/18 Prednisone* (Prednisone*) 20 Mg Tab, 40 MG PO DAILY for 5 Days, TAB Prov:TERA GREEN 07/30/18 Levofloxacin* (Levofloxacin*) 500 Mg Tablet, 500 MG PO DAILY for 7 Days, TAB Prov:TERA GREEN 07/30/18 Reported Medications Atorvastatin Calcium (Atorvastatin Calcium) 10 Mg Tablet, 10 MG PO QHS, #30 TAB 07/27/18 Salmeterol Xinaf/Fluticasone* (Advair*) 250-50 Diskus Inhaler, 1 INH INHALATION BID, #1 INHALER 07/27/18 Albuterol Sulfate* (Ventolin HFA*) 18 Gm Hfa.aer.ad, 2 PUFF INHALATION Q6H PRN for WHEEZING AND SOB, #1 INHALER 07/27/18 Aspirin* (Aspirin* Chew) 81 Mg Tab.chew, 81 MG PO DAILY, TAB.CHEW 07/27/18 Gabapentin* (Gabapentin*) 300 Mg Capsule, 600 MG PO QID, #180 CAP 07/27/18 Oxycodone Hcl* (Oxycontin*) 40 Mg Tab.er.12h, 40 MG PO Q12 PRN for SEVERE PAIN LEVEL 7-10, TAB 07/27/18 Atenolol* (Atenolol*) 50 Mg Tablet, 50 MG PO BID, #30 TAB 07/27/18 Losartan Potassium* (Losartan Potassium*) 50 Mg Tablet, 50 MG PO BID, TAB 07/27/18 Medications Current Medications Nicardipine HCl 200 ml @ 50 mls/hr TITRATE IV Last administered on 12/15/18 14:44; Admin Dose 10 MLS/HR; Start 12/12/18 at 06:00 Enoxaparin Sodium (Lovenox) 30 mg DAILY SC Last administered on 12/15/18 08:31; Admin Dose 30 MG; Start 12/12/18 at 09:00 Pantoprazole (Protonix Iv) 40 mg DAILY@06 IV Last administered on 12/16/18 05:14; Admin Dose 40 MG; Start 12/12/18 at 09:00 Vancomycin HCl (Vanco Iv Per Pharmacy) VANCOMYCIN PER PHARMACY PER PROTOCOL XX ; Start 12/12/18 at 13:00 Cefepime HCl 50 ml @ 100 mls/hr Q12 IVPB Last administered on 12/15/18 22:02; Admin Dose 100 MLS/HR; Start 12/12/18 at 13:00 Methylprednisolone Sodium Succinate (Solu-Medrol) 40 mg Q8 IV Last administered on 12/16/18 05:14; Admin Dose 40 MG; Start 12/13/18 at 14:00 Vancomycin HCl 250 ml @ 125 mls/hr Q12H IVPB Last administered on 12/16/18 04:46; Admin Dose 125 MLS/HR; Start 12/14/18 at 04:00 Albuterol/ Ipratropium (Duoneb) 3 ml Q4H RESP THERAPY HHN Last administered on 12/16/18 04:28; Admin Dose 3 ML; Start 12/14/18 at 17:00 Hydromorphone HCl (Dilaudid) 1 mg Q4H PRN IV SEVERE PAIN LEVEL 7-10 Last administered on 12/15/18 14:05; Admin Dose 1 MG; Start 12/14/18 at 18:00 Enalaprilat (Vasotec Iv) 1.25 mg Q3 PRN IV ELEVATED BLOOD PRESSURE Last a dministered on 12/15/18 13:40; Admin Dose 1.25 MG; Start 12/14/18 at 19:00 Diphenhydramine HCl (Benadryl) 25 mg Q6H PRN IV ALLERGIC REACTION Last administered on 12/15/18 01:09; Admin Dose 25 MG; Start 12/14/18 at 19:30 Ondansetron HCl (Zofran Inj) 4 mg Q6H PRN IV NAUSEA AND/OR VOMITING Last administered on 12/16/18 05:14; Admin Dose 4 MG; Start 12/14/18 at 19:30 Aspirin (Aspirin) 81 mg DAILY PO ; Start 12/16/18 at 09:00 Atenolol (Tenormin) 50 mg BID PO Last administered on 12/15/18 16:23; Admin Dose 50 MG; Start 12/15/18 at 17:00 Arformoterol Tartrate (Brovana (Neb)) 2 ml BID RESP THERAPY INH ; Start 12/15/18 at 20:00 Clonidine (Catapres) 0.1 mg BID PO Last administered on 12/15/18 22:01; Admin Dose 0.1 MG; Start 12/15/18 at 15:00 Oxycodone HCl (Oxycontin) 20 mg TID PO Last administered on 12/16/18 00:02; Admin Dose 20 MG; Start 12/15/18 at 17:00 Gabapentin (Neurontin) 300 mg TID PO Last administered on 12/15/18 22:02; Admin Dose 300 MG; Start 12/15/18 at 21:00 Budesonide (Pulmicort (Neb)) 0.5 mg BID RESP THERAPY INH Last administered on 12/15/18 20:31; Admin Dose 0.5 MG; Start 12/15/18 at 20:00 Lisinopril (Zestril) 20 mg BID PO ; Start 12/16/18 at 09:00 Assessment/Plan Hospital Course (Demo Recall) 1. Abnormal echocardiogram, assess for acute coronary syndrome.-neg trop x 2/NL EF with LVDD by echo this admit. neg trop x 3 - r/o [place], no intervntion planned. 2. Tachycardia consistent with sinus tachycardia on admission in the setting of respiratory distress, now improved. Rate better now. 3. Hypertensive urgency/emergency in the setting of respiratory distress, now improved. Assess intubation.Much better now - BP improved, 4. Respiratory failure, now improved s/p extubation 5. History of hypertension with mainly reasonable BP with a single elevation 6. Anemia. 7. Acidosis- con't Rx, better urine output, 8. BNP-increased DEAN CAMARENA MD Dec 16, 2018 08:56
[2018-12-16] MEDS: LISINOPRIL 20 MG TAB PO SCH ×2 (09:00→20:33)
[2018-12-16] MEDS: GABAPENTIN 300 MG CAP PO SCH ×3 (09:03→20:31)
[2018-12-16] MEDS: ATENOLOL 50 MG TAB PO SCH ×2 (09:08→20:32)
[2018-12-16] MEDS: ASPIRIN 81 MG TAB PO SCH (09:08)
[2018-12-16] MEDS: ENOXAPARIN 30 MG/0.3 ML SYG SC SCH (09:12)
[2018-12-16] MEDS: CEFEPIME 1GM/50 ML (PMX) 50 ML IVPB SCH ×2 (09:16→20:31)
[2018-12-16] MEDS: BUDESONIDE (NEB) 0.5MG/2ML AMP INH SCH ×2 (10:00→19:52)
[2018-12-16] MEDS: ARFORMOTEROL TARTRATE 15MCG/2 ML AMP INH SCH ×2 (10:08→19:52)
--- NOTE | 2018-12-16 10:34 | CONS ---
Assessment/Plan Assessment/Plan Assessment/Plan (Daily) Assessment and recommendations; 1. Status post respiratory failure due to bilateral pneumonia with interval improvement. 2. 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 3. History of hypertension. 4. Acute renal injury with improving renal function. 5. History of hypertension. 6. Mild CHF. 7. Acute hepatic injury, possibly sepsis versus chemotherapy related. Liver function panel is improving. Continue current supportive care. Transfer to medical floor. Patient is in the process of being transferred to [facility] for further treatment regarding liposarcoma. Prognosis is guarded. Consultation Date/Type/Reason Admit Date/Time Dec 12, 2018 at 06:34 Initial Consult Date 12/12/18 Type of Consult Pulmonary/critical care Patient is a 58-year-old male who was brought into the hospital with shortness of breath. Patient was found to be in respiratory failure and had to be intubated by the ER physician. However no CPR was performed. By the time I saw him, patient is orally intubated and sedated. Did not appear to be in any distress. History has been obtained from medical records. Past medical history; 1. 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 It is unclear if the patient has had a recurrence. Apparently patient is currently on chemotherapy. 2. History of COPD 3. History of hypertension. Medications; reviewed. Allergies; as outlined above. Social history; history of smoking. Family history; not available. Occupational history; not available. Review of system; unable to be obtained. General exam; middle-aged male, orally intubated, sedated, currently in no distress. Requesting Provider: DEBBIE BAKER MD Date/Time of Note DATE: 12/16/18 TIME: 10:32 24 HR Interval Summary Free Text/Dictation Patient's condition is stable. Remains awake and alert. Has remained hemodynamically stable. General exam; middle-aged male, awake alert, currently no distress. Exam/Review of Systems Exam Vitals Vital Signs Date Temp Pulse Resp B/P (MAP) Pulse Ox O2 O2 Flow FiO2 Time Delivery Rate 12/16/18 82 18 95 Nasal 2.0 10:00 Cannula 12/16/18 98.4 154/89 04:00 (110) 12/14/18 30 12:38 Intake and Output 12/15/18 12/15/18 12/16/18 1515:00 23:00 07:00 IntakeIntake Total 612 ml 771 ml 1850 ml OutputOutput Total 800 ml 550 ml 715 ml BalanceBalance -188 ml 221 ml 1135 ml Exam HEENT exam; supple neck, no JVD. No lymphadenopathy. Midline trachea. No thyromegaly. No neck masses. Chest exam; diminished but clear breath sounds. S1-S2 audible, no murmurs. Regular rhythm. Abdomen exam; soft, nontender. No organomegaly. Bowel sounds. Extremity exam; no peripheral edema or clubbing. MANAGER VAN exam; no focal deficit. Results Result Diagram: 12/16/1844612/16/18446 Results 24hrs Laboratory Tests Test 12/15/18 15:06 12/16/18 04:45 12/16/18 04:47 Vancomycin Level Trough 13.8 Phosphorus Level 3.5 Magnesium Level 2.5 White Blood Count 1.5 #L Red Blood Count 3.88 L Hemoglobin 9.8 L Hematocrit 30.4 L Mean Corpuscular Volume 78.4 L Mean Corpuscular Hemoglobin 25.3 L Mean Corpuscular Hemoglobin Concent 32.2 Red Cell Distribution Width 18.6 H Platelet Count 95 #L Mean Platelet Volume 9.8 Immature Granulocytes % 0.700 H Neutrophils % Segmented Neutrophils % (Manual) 66 Band Neutrophils % (Manual) 1 Lymphocytes % Lymphocytes % (Manual) 24 Reactive Lymphocytes % (Manual) 6 H Monocytes % Monocytes % (Manual) 3 Eosinophils % Basophils % Nucleated Red Blood Cells % 0.0 Immature Granulocytes # 0.010 Neutrophils # Neutrophils # (Manual) 1.0 L Band Neutrophils # 0.0 Lymphocytes (Manual) 0.3 L Lymphocytes # Reactive Lymphocytes # 0.0 Monocytes # Monocytes # (Manual) 0.0 L Eosinophils # Basophils # Nucleated Red Blood Cells # Platelet Estimate DECREASED Giant Platelets 5 H Polychromasia 3+ Poikilocytosis 2+ Anisocytosis 2+ Microcytosis 1+ Tear Drop Cells 1+ Ovalocytes 1+ Sodium Level 141 Potassium Level 4.8 Chloride Level 107 Carbon Dioxide Level 28 Anion Gap 6 Blood Urea Nitrogen 25 H Creatinine 0.84 Est Glomerular Filtrat Rate mL/min > 60 Glucose Level 138 Calcium Level 8.2 L Total Bilirubin 0.2 Direct Bilirubin 0.00 Indirect Bilirubin 0.2 Aspartate Amino Transf (AST/SGOT) 64 H Alanine Aminotransferase (ALT/SGPT) 160 H Alkaline Phosphatase 60 Total Protein 5.4 L Albumin 3.0 L Globulin 2.40 Albumin/Globulin Ratio 1.25 Medications Medication Current Medications Nicardipine HCl 200 ml @ 50 mls/hr TITRATE IV Last administered on 12/15/18 14:44; Admin Dose 10 MLS/HR; Start 12/12/18 at 06:00 Enoxaparin Sodium (Lovenox) 30 mg DAILY SC Last administered on 12/16/18 09:12; Admin Dose 30 MG; Start 12/12/18 at 09:00 Pantoprazole (Protonix Iv) 40 mg DAILY@06 IV Last administered on 12/16/18 05:14; Admin Dose 40 MG; Start 12/12/18 at 09:00 Vancomycin HCl (Vanco Iv Per Pharmacy) VANCOMYCIN PER PHARMACY PER PROTOCOL XX ; Start 12/12/18 at 13:00 Cefepime HCl 50 ml @ 100 mls/hr Q12 IVPB Last administered on 12/16/18 09:16; Admin Dose 100 MLS/HR; Start 12/12/18 at 13:00 Methylprednisolone Sodium Succinate (Solu-Medrol) 40 mg Q8 IV Last administered on 12/16/18 05:14; Admin Dose 40 MG; Start 12/13/18 at 14:00 Vancomycin HCl 250 ml @ 125 mls/hr Q12H IVPB Last administered on 12/16/18 04:46; Admin Dose 125 MLS/HR; Start 12/14/18 at 04:00 Hydromorphone HCl (Dilaudid) 1 mg Q4H PRN IV SEVERE PAIN LEVEL 7-10 Last administered on 12/15/18 14:05; Admin Dose 1 MG; Start 12/14/18 at 18:00 Enalaprilat (Vasotec Iv) 1.25 mg Q3 PRN IV ELEVATED BLOOD PRESSURE Last administered on 12/15/18 13:40; Admin Dose 1.25 MG; Start 12/14/18 at 19:00 Diphenhydramine HCl (Benadryl) 25 mg Q6H PRN IV ALLERGIC REACTION Last administered on 12/15/18 01:09; Admin Dose 25 MG; Start 12/14/18 at 19:30 Ondansetron HCl (Zofran Inj) 4 mg Q6H PRN IV NAUSEA AND/OR VOMITING Last administered on 12/16/18 05:14; Admin Dose 4 MG; Start 12/14/18 at 19:30 Aspirin (Aspirin) 81 mg DAILY PO Last administered on 12/16/18 09:08; Admin Dose 81 MG; Start 12/16/18 at 09:00 Atenolol (Tenormin) 50 mg BID PO Last administered on 12/16/18 09:08; Admin Dose 50 MG; Start 12/15/18 at 17:00 Arformoterol Tartrate (Brovana (Neb)) 2 ml BID RESP THERAPY INH Last ad ministered on 12/16/18 10:08; Admin Dose 2 ML; Start 12/15/18 at 20:00 Clonidine (Catapres) 0.1 mg BID PO Last administered on 12/16/18 09:08; Admin Dose 0.1 MG; Start 12/15/18 at 15:00 Oxycodone HCl (Oxycontin) 20 mg TID PO Last administered on 12/16/18 09:03; Admin Dose 20 MG; Start 12/15/18 at 17:00 Gabapentin (Neurontin) 300 mg TID PO Last administered on 12/16/18 09:03; Admin Dose 300 MG; Start 12/15/18 at 21:00 Budesonide (Pulmicort (Neb)) 0.5 mg BID RESP THERAPY INH Last administered on 12/16/18 10:00; Admin Dose 0.5 MG; Start 12/15/18 at 20:00 Lisinopril (Zestril) 20 mg BID PO ; Start 12/16/18 at 09:00 Albuterol (Proventil 0.083% (Neb)) 2.5 mg Q6H RESP THERAPY HHN ; Start 12/16/18 at 14:00 LAINEY TRACY Dec 16, 2018 10:34
[2018-12-16] MEDS: ALBUTEROL 0.083% (NEB) 2.5 MG/3 ML AMP HHN SCH ×2 (13:39→19:51)
--- NOTE | 2018-12-16 15:07 | CONS ---
Assessment/Plan Assessment/Plan Hospital Course (Demo Recall) Patient is alert feels good denies pain no fevers overnight. WBC today 1.5 with platelets 95 BUN 25 creatinine 0.84 Microbiology: Blood culture growing staph 1 set, repeat bld cx neg, urine cu lture negative CT of the chest and thorax revealed no evidence of pulmonary embolism. Please see full report Indwelling: Right chest Port-A-Cath, Shields catheter Allergies: ertapenem amoxicillin and sulfa Antimicrobials: Vancomycin cefepime Physical examination: This is a well-nourished well-developed middle-aged Turk[place] man who is in no distress. Head atraumatic normocephalic sclera nonict camilo. Neck is supple. Chest rise symmetrical, breath sounds diminished bases. Heart: S1-S2. Abdomen soft bowel sounds present extremities without cyanosis Assessment: 1. Acute hypoxemic respiratory failure secondary to large posterior mediastinal tumor, rule out aspiration 2. Bacteremia, rule out line sepsis 3. Mediastinal mass/liposarcoma, status post chemotherapy at [facility] 4. Hypertension 5. Pancytopenia Plan: Remains stable, repeat bld cx neg, continue abx, f/u pulmonary rec-s Consultation Date/Type/Reason Admit Date/Time Dec 12, 2018 at 06:34 Initial Consult Date 12/12/18 Type of Consult id Requesting Provider: DEBBIE BAKER MD Date/Time of Note DATE: 12/16/18 TIME: 15:05 Exam/Review of Systems Exam Vitals Vital Signs Date Temp Pulse Resp B/P (MAP) Pulse Ox O2 O2 Flow FiO2 Time Delivery Rate 12/16/18 96 2.0 13:40 12/16/18 71 18 Nasal 13:40 Cannula 12/16/18 98.4 154/89 04:00 (110) 12/14/18 30 12:38 Intake and Output 12/15/18 12/15/18 12/16/18 1515:00 23:00 07:00 IntakeIntake Total 612 ml 771 ml 1850 ml OutputOutput Total 800 ml 550 ml 715 ml BalanceBalance -188 ml 221 ml 1135 ml Results Result Diagram: 12/16/18 0447 12/16/18 0447 Results 24hrs Laboratory Tests Test 12/15/18 15:06 12/16/18 04:45 12/16/18 04:47 Vancomycin Level Trough 13.8 Phosphorus Level 3.5 Magnesium Level 2.5 White Blood Count 1.5 #L Red Blood Count 3.88 L Hemoglobin 9.8 L Hematocrit 30.4 L Mean Corpuscular Volume 78.4 L Mean Corpuscular Hemoglobin 25.3 L Mean Corpuscular Hemoglobin Concent 32.2 Red Cell Distribution Width 18.6 H Platelet Count 95 #L Mean Platelet Volume 9.8 Immature Granulocytes % 0.700 H Neutrophils % Segmented Neutrophils % (Manual) 66 Band Neutrophils % (Manual) 1 Lymphocytes % Lymphocytes % (Manual) 24 Reactive Lymphocytes % (Manual) 6 H Monocytes % Monocytes % (Manual) 3 Eosinophils % Basophils % Nucleated Red Blood Cells % 0.0 Immature Granulocytes # 0.010 Neutrophils # Neutrophils # (Manual) 1.0 L Band Neutrophils # 0.0 Lymphocytes (Manual) 0.3 L Lymphocytes # Reactive Lymphocytes # 0.0 Monocytes # Monocytes # (Manual) 0.0 L Eosinophils # Basophils # Nucleated Red Blood Cells # Platelet Estimate DECREASED Giant Platelets 5 H Polychromasia 3+ Poikilocytosis 2+ Anisocytosis 2+ Microcytosis 1+ Tear Drop Cells 1+ Ovalocytes 1+ Sodium Level 141 Potassium Level 4.8 Chloride Level 107 Carbon Dioxide Level 28 Anion Gap 6 Blood Urea Nitrogen 25 H Creatinine 0.84 Est Glomerular Filtrat Rate mL/min > 60 Glucose Level 138 Calcium Level 8.2 L Total Bilirubin 0.2 Direct Bilirubin 0.00 Indirect Bilirubin 0.2 Aspartate Amino Transf (AST/SGOT) 64 H Alanine Aminotransferase (ALT/SGPT) 160 H Alkaline Phosphatase 60 Total Protein 5.4 L Albumin 3.0 L Globulin 2.40 Albumin/Globulin Ratio 1.25 Medications Medication Current Medications Enoxaparin Sodium (Lovenox) 30 mg DAILY SC Last administered on 12/16/18at 09:12; Admin Dose 30 MG; Start 12/12/18 at 09:00 Vancomycin HCl (Vanco Iv Per Pharmacy) VANCOMYCIN PER PHARMACY PER PROTOCOL XX ; Start 12/12/18 at 13:00 Cefepime HCl 50 ml @ 100 mls/hr Q12 IVPB Last administered on 12/16/18at 09:16; Admin Dose 100 MLS/HR; Start 12/12/18 at 13:00 Methylprednisolone Sodium Succinate (Solu-Medrol) 40 mg Q8 IV Last administered on 12/16/18at 05:14; Admin Dose 40 MG; Start 12/13/18 at 14:00 Vancomycin HCl 250 ml @ 125 mls/hr Q12H IVPB Last administered on 12/16/18 04:46; Admin Dose 125 MLS/HR; Start 12/14/18 at 04:00 Hydromorphone HCl (Dilaudid) 1 mg Q4H PRN IV SEVERE PAIN LEVEL 7-10 Last administered on 12/15/18 14:05; Admin Dose 1 MG; Start 12/14/18 at 18:00 Enalaprilat (Vasotec Iv) 1.25 mg Q3 PRN IV ELEVATED BLOOD PRESSURE Last administered on 12/15/18 13:40; Admin Dose 1.25 MG; Start 12/14/18 at 19:00 Diphenhydramine HCl (Benadryl) 25 mg Q6H PRN IV ALLERGIC REACTION Last administered on 12/15/18 01:09; Admin Dose 25 MG; Start 12/14/18 at 19:30 Ondansetron HCl (Zofran Inj) 4 mg Q6H PRN IV NAUSEA AND/OR VOMITING Last administered on 12/16/18 05:14; Admin Dose 4 MG; Start 12/14/18 at 19:30 Aspirin (Aspirin) 81 mg DAILY PO Last administered on 12/16/18 09:08; Admin Do se 81 MG; Start 12/16/18 at 09:00 Atenolol (Tenormin) 50 mg BID PO Last administered on 12/16/18 09:08; Admin Dose 50 MG; Start 12/15/18 at 17:00 Arformoterol Tartrate (Brovana (Neb)) 2 ml BID RESP THERAPY INH Last administered on 12/16/18 10:08; Admin Dose 2 ML; Start 12/15/18 at 20:00 Clonidine (Catapres) 0.1 mg BID PO Last administered on 12/16/18 09:08; Admin Dose 0.1 MG; Start 12/15/18 at 15:00 Oxycodone HCl (Oxycontin) 20 mg TID PO Last administered on 12/16/18 09:03; Admin Dose 20 MG; Start 12/15/18 at 17:00 Gabapentin (Neurontin) 300 mg TID PO Last administered on 4/9/19at 09:03; Admin Dose 300 MG; Start 12/15/18 at 21:00 Budesonide (Pulmicort (Neb)) 0.5 mg BID RESP THERAPY INH Last administered on 12/16/18at 10:00; Admin Dose 0.5 MG; Start 12/15/18 at 20:00 Lisinopril (Zestril) 20 mg BID PO ; Start 12/16/18 at 09:00 Albuterol (Proventil 0.083% (Neb)) 2.5 mg Q6H RESP THERAPY HHN Last administered on 12/16/18at 13:39; Admin Dose 2.5 MG; Start 12/16/18 at 14:00 Pantoprazole (Protonix Tab) 40 mg DAILY@06 PO ; Start 12/17/18 at 06:00 MAYELA TUCKER NP Dec 16, 2018 15:07
--- NOTE | 2018-12-16 16:17 | PN ---
Date/Time of Note Date/Time of Note DATE: 12/16/18 TIME: 16:09 Assessment/Plan VTE Prophylaxis Risk score (from Ns)>0 risk: 9 SCD applied (from Ns): Yes Pharmacological prophylaxis: NA/contraindicated Pharm contraindication: thrombocytopenia Lines/Catheters IV Catheter Type (from Nrsg): Saline Lock Urinary Cath still in place: No Assessment/Plan Hospital Course Patient continues on supplemental oxygen via nasal cannula, able to work with PT, patient continues on antibiotics for pneumonia, pending transfer to medical surgical floor, continue neutropenic precaution. Patient's condition and plan of care discussed with patient and patient's at the bedside, favors not to be seen and by any oncologist for pancytopenia since they follow with oncologist at this [facility]. Assessment/Plan -Acute hypoxemic and hypercapnic respiratory failure requiring intubation, Etiology of respiratory failure likely related to a combination of proximal bronchial obstruction 2/2 tumor and acute COPD exacerbation +/- CHF. Patient is currently extubated on supplemental oxygen. Dr. Medina is following in pulmonology consultation. -Mediastinal Mass--Liposarcoma. S/p chemotherapy at [facility]. -Dysphagia secondary to mechanical compression of the esophagus by the tumor -Pancytopenia most probably related to chemotherapy. Continue neutropenic precaution. -Hypertensive urgency, resolved. Dr. Navas is following [facility]. -Stage I diastolic dysfunction with ejection fraction of 55% -Bacteremia, continue antibiotics per ID. Dr. Grayson is following in infection disease consultation. -Transaminitis Further recommendations based on clinical course. Plan of care discussed with Dr. James Result Diagram: 12/16/18 0447 12/16/18446 Results 24hrs Laboratory Tests Test 12/16/18 04:45 12/16/18 04:47 Phosphorus Level 3.5 Magnesium Level 2.5 White Blood Count 1.5 #L Red Blood Count 3.88 L Hemoglobin 9.8 L Hematocrit 30.4 L Mean Corpuscular Volume 78.4 L Mean Corpuscular Hemoglobin 25.3 L Mean Corpuscular Hemoglobin Concent 32.2 Red Cell Distribution Width 18.6 H Platelet Count 95 #L Mean Platelet Volume 9.8 Immature Granulocytes % 0.700 H Neutrophils % Segmented Neutrophils % (Manual) 66 Band Neutrophils % (Manual) 1 Lymphocytes % Lymphocytes % (Manual) 24 Reactive Lymphocytes % (Manual) 6 H Monocytes % Monocytes % (Manual) 3 Eosinophils % Basophils % Nucleated Red Blood Cells % 0.0 Immature Granulocytes # 0.010 Neutrophils # Neutrophils # (Manual) 1.0 L Band Neutrophils # 0.0 Lymphocytes (Manual) 0.3 L Lymphocytes # Reactive Lymphocytes # 0.0 Monocytes # Monocytes # (Manual) 0.0 L Eosinophils # Basophils # Nucleated Red Blood Cells # Platelet Estimate DECREASED Giant Platelets 5 H Polychromasia 3+ Poikilocytosis 2+ Anisocytosis 2+ Microcytosis 1+ Tear Drop Cells 1+ Ovalocytes 1+ Sodium Level 141 Potassium Level 4.8 Chloride Level 107 Carbon Dioxide Level 28 Anion Gap 6 Blood Urea Nitrogen 25 H Creatinine 0.84 Est Glomerular Filtrat Rate mL/min > 60 Glucose Level 138 Calcium Level 8.2 L Total Bilirubin 0.2 Direct Bilirubin 0.00 Indirect Bilirubin 0.2 Aspartate Amino Transf (AST/SGOT) 64 H Alanine Aminotransferase (ALT/SGPT) 160 H Alkaline Phosphatase 60 Total Protein 5.4 L Albumin 3.0 L Globulin 2.40 Albumin/Globulin Ratio 1.25 Exam/Review of Systems Exam Vitals Vital Signs Date Temp Pulse Resp B/P (MAP) Pulse Ox O2 O2 Flow FiO2 Time Delivery Rate 12/16/18 96 2.0 13:40 12/16/18 71 18 Nasal 13:40 Cannula 12/16/18 98.4 154/89 04:00 (110) 12/14/18 30 12:38 Intake and Output 12/15/18 12/15/18 12/16/18 1515:00 23:00 07:00 IntakeIntake Total 612 ml 771 ml 1850 ml OutputOutput Total 800 ml 550 ml 715 ml BalanceBalance -188 ml 221 ml 1135 ml Exam Constitutional: alert, oriented Respiratory: diminished breath sounds Cardiovascular: regular rate and rhythm Gastrointestinal: soft, non-tender Extremities: normal pulses Neurological: nl mental status Skin: nl turgor Results Results 24hrs Laboratory Tests Test 12/16/18 04:45 12/16/18 04:47 Phosphorus Level 3.5 Magnesium Level 2.5 White Blood Count 1.5 #L Red Blood Count 3.88 L Hemoglobin 9.8 L Hematocrit 30.4 L Mean Corpuscular Volume 78.4 L Mean Corpuscular Hemoglobin 25.3 L Mean Corpuscular Hemoglobin Concent 32.2 Red Cell Distribution Width 18.6 H Platelet Count 95 #L Mean Platelet Volume 9.8 Immature Granulocytes % 0.700 H Neutrophils % Segmented Neutrophils % (Manual) 66 Band Neutrophils % (Manual) 1 Lymphocytes % Lymphocytes % (Manual) 24 Reactive Lymphocytes % (Manual) 6 H Monocytes % Monocytes % (Manual) 3 Eosinophils % Basophils % Nucleated Red Blood Cells % 0.0 Immature Granulocytes # 0.010 Neutrophils # Neutrophils # (Manual) 1.0 L Band Neutrophils # 0.0 Lymphocytes (Manual) 0.3 L Lymphocytes # Reactive Lymphocytes # 0.0 Monocytes # Monocytes # (Manual) 0.0 L Eosinophils # Basophils # Nucleated Red Blood Cells # Platelet Estimate DECREASED Giant Platelets 5 H Polychromasia 3+ Poikilocytosis 2+ Anisocytosis 2+ Microcytosis 1+ Tear Drop Cells 1+ Ovalocytes 1+ Sodium Level 141 Potassium Level 4.8 Chloride Level 107 Carbon Dioxide Level 28 Anion Gap 6 Blood Urea Nitrogen 25 H Creatinine 0.84 Est Glomerular Filtrat Rate mL/min > 60 Glucose Level 138 Calcium Level 8.2 L Total Bilirubin 0.2 Direct Bilirubin 0.00 Indirect Bilirubin 0.2 Aspartate Amino Transf (AST/SGOT) 64 H Alanine Aminotransferase (ALT/SGPT) 160 H Alkaline Phosphatase 60 Total Protein 5.4 L Albumin 3.0 L Globulin 2.40 Albumin/Globulin Ratio 1.25 Medications Medication Current Medications Enoxaparin Sodium (Lovenox) 30 mg DAILY SC Last administered on 12/16/18at 09:12; Admin Dose 30 MG; Start 12/12/18 at 09:00 Vancomycin HCl (Vanco Iv Per Pharmacy) VANCOMYCIN PER PHARMACY PER PROTOCOL XX ; Start 12/12/18 at 13:00 Cefepime HCl 50 ml @ 100 mls/hr Q12 IVPB Last administered on 12/16/18at 09:16; Admin Dose 100 MLS/HR; Start 12/12/18 at 13:00 Methylprednisolone Sodium Succinate (Solu-Medrol) 40 mg Q8 IV Last administered on 12/16/18at 15:40; Admin Dose 40 MG; Start 12/13/18 at 14:00 Vancomycin HCl 250 ml @ 125 mls/hr Q12H IVPB Last administered on 12/16/18at 04:46; Admin Dose 125 MLS/HR; Start 12/14/18 at 04:00 Hydromorphone HCl (Dilaudid) 1 mg Q4H PRN IV SEVERE PAIN LEVEL 7-10 Last administered on 12/15/18 14:05; Admin Dose 1 MG; Start 12/14/18 at 18:00 Enalaprilat (Vasotec Iv) 1.25 mg Q3 PRN IV ELEVATED BLOOD PRESSURE Last administered on 12/15/18 13:40; Admin Dose 1.25 MG; Start 12/14/18 at 19:00 Diphenhydramine HCl (Benadryl) 25 mg Q6H PRN IV ALLERGIC REACTION Last administered on 12/15/18 01:09; Admin Dose 25 MG; Start 12/14/18 at 19:30 Ondansetron HCl (Zofran Inj) 4 mg Q6H PRN IV NAUSEA AND/OR VOMITING Last administered on 12/16/18 05:14; Admin Dose 4 MG; Start 12/14/18 at 19:30 Aspirin (Aspirin) 81 mg DAILY PO Last administered on 12/16/18 09:08; Admin Dose 81 MG; Start 12/16/18 at 09:00 Atenolol (Tenormin) 50 mg BID PO Last administered on 12/16/18 09:08; Admin Dose 50 MG; Start 12/15/18 at 17:00 Arformoterol Tartrate (Brovana (Neb)) 2 ml BID RESP THERAPY INH Last administered on 12/16/18 10:08; Admin Dose 2 ML; Start 12/15/18 at 20:00 Clonidine (Catapres) 0.1 mg BID PO Last administered on 12/16/18 09:08; Admin Dose 0.1 MG; Start 12/15/18 at 15:00 Oxycodone HCl (Oxycontin) 20 mg TID PO Last administered on 12/16/18 15:40; Admin Dose 20 MG; Start 12/15/18 at 17:00 Gabapentin (Neurontin) 300 mg TID PO Last administered on 12/16/18 15:40; Admin Dose 300 MG; Start 12/15/18 at 21:00 Budesonide (Pulmicort (Neb)) 0.5 mg BID RESP THERAPY INH Last administered on 12/16/18 10:00; Admin Dose 0.5 MG; Start 12/15/18 at 20:00 Lisinopril (Zestril) 20 mg BID PO ; Start 12/16/18 at 09:00 Albuterol (Proventil 0.083% (Neb)) 2.5 mg Q6H RESP THERAPY HHN Last administered on 12/16/18at 13:39; Admin Dose 2.5 MG; Start 12/16/18 at 14:00 Pantoprazole (Protonix Tab) 40 mg DAILY@06 PO ; Start 12/17/18 at 06:00 TERA GREEN Dec 16, 2018 16:16
[2018-12-16] MEDS ORDERED: FILGRASTIM 480 MCG INJ SC ONE (17:00)
[2018-12-17] VITALS: BP 149/98; PULSE 77; PULSE 78; RESP 12
[2018-12-17] MEDS: ONDANSETRON 4 MG INJ IV PRN (00:14)
[2018-12-17] MEDS: HYDROmorphONE 1 MG/ML SYG IV PRN (01:57)
[2018-12-17] MEDS: ALBUTEROL 0.083% (NEB) 2.5 MG/3 ML AMP HHN SCH ×4 (02:04→19:47)
[2018-12-17] MEDS: oxyCODONE (CR) 20 MG TAB [oxyCONTIN] PO SCH ×3 (04:55→20:12)
[2018-12-17] MEDS: GABAPENTIN 300 MG CAP PO SCH ×3 (04:55→20:12)
[2018-12-17] MEDS: VANCOMYCIN 1 GM 250 ML IVPB SCH ×2 (04:56→13:12)
[2018-12-17] MEDS: PANTOPRAZOLE (EC) 40 MG TAB PO SCH (05:49)
[2018-12-17 07:40] VITALS: BP 158/80; PULSE 73; RESP 18
[2018-12-17] MEDS: ARFORMOTEROL TARTRATE 15MCG/2 ML AMP INH SCH ×2 (08:42→19:48)
[2018-12-17] MEDS: BUDESONIDE (NEB) 0.5MG/2ML AMP INH SCH ×2 (08:43→19:48)
--- NOTE | 2018-12-17 09:05 | PN ---
DATE: 12/17/2018 SUBJECTIVE: The patient was transferred from intensive care unit to med/surg. The patient has been noncompliant with medications, refusing to take JONNIE inhibitor. No other events noted. OBJECTIVE: VITAL SIGNS: Blood pressure is 158/80, respirations 18, pulse 83, temperature 98.0. HEENT: Head is normocephalic. NECK: Supple. HEART: Regular rate. LUNGS: Show diminished breath sounds at the base. ABDOMEN: Soft, nontender to palpation, no rebound or guarding. EXTREMITIES: No clubbing, cyanosis, no edema. DERMATOLOGIC: No rashes. MUSCULOSKELETAL: No joint effusion. NEUROLOGIC: No change in exam. MEDICATIONS: The patient's medications have been reviewed. LABORATORY DATA: From 12/17/18 was reviewed. ASSESSMENT AND PLAN: 1. Nonoliguric acute kidney injury with previously normal baseline creatinine. Etiology of acute ki dney injury is secondary to hemodynamics. Renal function is improved. Continue current treatment pl an, supportive care, renally dose all medicines. 2. Hypertension. Blood pressure remains elevated, but slowly improving. Continue current medical m anagement. The patient was encouraged to take blood pressure medications. 3. Status post respiratory failure. 4. Liposarcoma. Continue chemotherapy. 5. Right pleural effusion secondary to pneumonia and sarcoma. Continue to monitor. 6. Chronic obstructive pulmonary disease. Continue medical management. 7. Anemia. Continue to monitor hemoglobin and hematocrit levels. 8. Mineral bone disorder, monitor calcium and phosphorus levels. 9. Dyslipidemia. Continue statin therapy. 10. Encephalopathy. The patient's mental status is improving. Continue to monitor. 11. Bacteremia. The patient has completed antibiotic course. Continue to monitor. Dictated By: KIP APARICIO DO NR/NTS Conf#: [id number] DID#: [id number] CC: SONU WILHELM MD; DEBBIE BAKER MD;*End*
[2018-12-17] MEDS: LISINOPRIL 20 MG TAB PO SCH ×2 (09:16→20:17)
[2018-12-17] MEDS: ASPIRIN 81 MG TAB PO SCH (09:17)
[2018-12-17] MEDS: ATENOLOL 50 MG TAB PO SCH ×2 (09:18→20:17)
[2018-12-17] MEDS: METHYLPREDNISOLONE 40 MG INJ IV SCH ×2 (09:18→20:19)
[2018-12-17] MEDS: ENOXAPARIN 30 MG/0.3 ML SYG SC SCH (09:30)
[2018-12-17] MEDS: CEFEPIME 1GM/50 ML (PMX) 50 ML IVPB SCH ×2 (10:27→20:24)
[2018-12-17 14:00] VITALS: BP 162/92; PULSE 79; RESP 18
--- NOTE | 2018-12-17 14:12 | PN ---
Date/Time of Note Date/Time of Note DATE: 12/17/18 TIME: 14:08 Assessment/Plan VTE Prophylaxis Risk score (from Ns)>0 risk: 6 SCD applied (from Ns): Yes Pharmacological prophylaxis: NA/contraindicated Pharm contraindication: thrombocytopenia Lines/Catheters IV [facility]from [facility]ine [facility] Urinary Cath still in place: No Assessment/Plan Hospital Course Patient looks comfortable at rest, wants to go home, patient continues on IV antibiotics, continued on neutropenic precaution, white blood cells and 2.3 thousand today. Assessment/Plan -Acute hypoxemic and hypercapnic respiratory failure requiring intubation, Etiology of respiratory failure likely related to a combination of proximal bronchial obstruction 2/2 tumor and acute COPD exacerbation +/- CHF. Patient is currently extubated on supplemental oxygen. Dr. Medina is following in pulmonology consultation. -Mediastinal Mass--Liposarcoma. S/p chemotherapy at [facility]. -Dysphagia secondary to mechanical compression of the esophagus by the tumor -Pancytopenia most probably related to chemotherapy. Continue neutropenic precaution. -Hypertensive urgency, resolved. Dr. Navas is following in cardiology consultation. -Stage I diastolic dysfunction with ejection fraction of 55% -Bacteremia, continue antibiotics per ID. Dr. Grayson is following in infection disease consultation. -Transaminitis Further recommendations based on clinical course. Plan of care discussed with Dr. James Result Diagram: 12/17/18 0453 12/17/18 0453 Results 24hrs Laboratory Tests Test 12/17/18 04:53 12/17/18 11:03 White Blood Count 2.3 #L Red Blood Count 3.94 L Hemoglobin 9.7 L Hematocrit 30.9 L Mean Corpuscular Volume 78.4 L Mean Corpuscular Hemoglobin 24.6 L Mean Corpuscular Hemoglobin Concent 31.4 L Red Cell Distribution Width 18.5 H Platelet Count 87 L Mean Platelet Volume 10.0 Immature Granulocytes % 7.900 H Neutrophils % Segmented Neutrophils % (Manual) 81 H Band Neutrophils % (Manual) 3 Lymphocytes % Lymphocytes % (Manual) 12 L Monocytes % Monocytes % (Manual) 4 Eosinophils % Basophils % Nucleated Red Blood Cells % 0.0 Immature Granulocytes # 0.180 H Neutrophils # Neutrophils # (Manual) 1.9 Band Neutrophils # 0.0 Lymphocytes (Manual) 0.2 L Lymphocytes # Monocytes # Monocytes # (Manual) 0.0 L Eosinophils # Basophils # Nucleated Red Blood Cells # Platelet Estimate DECREASED Poikilocytosis 2+ Anisocytosis 2+ Microcytosis 2+ Macrocytosis 1+ Ovalocytes 1+ Sodium Level 138 Potassium Level 4.8 Chloride Level 106 Carbon Dioxide Level 25 Anion Gap 7 Blood Urea Nitrogen 23 H Creatinine 0.83 Est Glomerular Filtrat Rate mL/min > 60 Glucose Level 139 Calcium Level 8.2 L Phosphorus Level 3.0 Magnesium Level 2.6 H Lab Scanned Report REFERENCE LAB Exam/Review of Systems Exam Vitals Vital Signs Date Temp Pulse Resp B/P (MAP) Pulse Ox O2 O2 Flow FiO2 Time Delivery Rate 12/17/18 74 18 91 21 13:25 12/17/18 98.0 158/80 07:40 (106) 12/17/18 Nasal 2.0 02:05 Cannula Intake and Output 12/16/18 12/16/18 12/17/18 1515:00 23:00 07:00 IntakeIntake Total 50 ml 550 ml 650 ml OutputOutput Total 395 ml 175 ml BalanceBalance 50 ml 155 ml 475 ml Exam Constitutional: alert, oriented Respiratory: diminished breath sounds Cardiovascular: regular rate and rhythm Gastrointestinal: soft, non-tender Extremities: normal pulses Neurological: nl mental status Skin: nl turgor Results Results 24hrs Laboratory Tests Test 12/17/18 04:53 12/17/18 11:03 White Blood Count 2.3 #L Red Blood Count 3.94 L Hemoglobin 9.7 L Hematocrit 30.9 L Mean Corpuscular Volume 78.4 L Mean Corpuscular Hemoglobin 24.6 L Mean Corpuscular Hemoglobin Concent 31.4 L Red Cell Distribution Width 18.5 H Platelet Count 87 L Mean Platelet Volume 10.0 Immature Granulocytes % 7.900 H Neutrophils % Segmented Neutrophils % (Manual) 81 H Band Neutrophils % (Manual) 3 Lymphocytes % Lymphocytes % (Manual) 12 L Monocytes % Monocytes % (Manual) 4 Eosinophils % Basophils % Nucleated Red Blood Cells % 0.0 Immature Granulocytes # 0.180 H Neutrophils # Neutrophils # (Manual) 1.9 Band Neutrophils # 0.0 Lymphocytes (Manual) 0.2 L Lymphocytes # Monocytes # Monocytes # (Manual) 0.0 L Eosinophils # Basophils # Nucleated Red Blood Cells # Platelet Estimate DECREASED Poikilocytosis 2+ Anisocytosis 2+ Microcytosis 2+ Macrocytosis 1+ Ovalocytes 1+ Sodium Level 138 Potassium Level 4.8 Chloride Level 106 Carbon Dioxide Level 25 Anion Gap 7 Blood Urea Nitrogen 23 H Creatinine 0.83 Est Glomerular Filtrat Rate mL/min > 60 Glucose Level 139 Calcium Level 8.2 L Phosphorus Level 3.0 Magnesium Level 2.6 H Lab Scanned Report REFERENCE LAB Medications Medication Current Medications Enoxaparin Sodium (Lovenox) 30 mg DAILY SC Last administered on 12/17/18 09:30; Admin Dose 30 MG; Start 12/12/18 at 09:00 Vancomycin HCl (Vanco Iv Per Pharmacy) VANCOMYCIN PER PHARMACY PER PROTOCOL XX ; Start 12/12/18 at 13:00 Cefepime HCl 50 ml @ 100 mls/hr Q12 IVPB Last administered on 12/17/18 10:27; Admin Dose 100 MLS/HR; Start 12/12/18 at 13:00 Hydromorphone HCl (Dilaudid) 1 mg Q4H PRN IV SEVERE PAIN LEVEL 7-10 Last administered on 12/17/18 01:57; Admin Dose 1 MG; Start 12/14/18 at 18:00 Enalaprilat (Vasotec Iv) 1.25 mg Q3 PRN IV ELEVATED BLOOD PRESSURE Last administered on 12/15/18 13:40; Admin Dose 1.25 MG; Start 12/14/18 at 19:00 Diphenhydramine HCl (Benadryl) 25 mg Q6H PRN IV ALLERGIC REACTION Last administered on 12/15/18 01:09; Admin Dose 25 MG; Start 12/14/18 at 19:30 Ondansetron HCl (Zofran Inj) 4 mg Q6H PRN IV NAUSEA AND/OR VOMITING Last administered on 12/17/18 00:14; Admin Dose 4 MG; Start 12/14/18 at 19:30 Aspirin (Aspirin) 81 mg DAILY PO Last administered on 12/17/18 09:17; Admin Dose 81 MG; Start 12/16/18 at 09:00 Atenolol (Tenormin) 50 mg BID PO Last administered on 12/17/18 09:18; Admin Dose 50 MG; Start 12/15/18 at 17:00 Arformoterol Tartrate (Brovana (Neb)) 2 ml BID RESP THERAPY INH Last administered on 12/17/18 08:42; Admin Dose 2 ML; Start 12/15/18 at 20:00 Clonidine (Catapres) 0.1 mg BID PO Last administered on 12/17/18 09:17; Admin Dose 0.1 MG; Start 12/15/18 at 15:00 Oxycodone HCl (Oxycontin) 20 mg TID PO Last administered on 12/17/18 13:08; Admin Dose 20 MG; Start 12/15/18 at 17:00 Gabapentin (Neurontin) 300 mg TID PO Last administered on 12/17/18 13:08; Admin Dose 300 MG; Start 12/15/18 at 21:00 Budesonide (Pulmicort (Neb)) 0.5 mg BID RESP THERAPY INH Last administered on 12/17/18 08:43; Admin Dose 0.5 MG; Start 12/15/18 at 20:00 Lisinopril (Zestril) 20 mg BID PO Last administered on 12/17/18 09:16; Admin Dose 20 MG; Start 12/16/18 at 09:00 Albuterol (Proventil 0.083% (Neb)) 2.5 mg Q6H RESP THERAPY HHN Last administered on 12/17/18 13:23; Admin Dose 2.5 MG; Start 12/16/18 at 14:00 Pantoprazole (Protonix Tab) 40 mg DAILY@06 PO Last administered on 12/17/18 05:49; Admin Dose 40 MG; Start 12/17/18 at 06:00 Methylprednisolone Sodium Succinate (Solu-Medrol) 40 mg BID IV Last administered on 12/17/18 09:18; Admin Dose 40 MG; Start 12/16/18 at 22:00 Vancomycin HCl 250 ml @ 125 mls/hr Q12H IVPB Last administered on 12/17/18 13:12; Admin Dose 125 MLS/HR; Start 12/17/18 at 13:00 TERA GREEN Dec 17, 2018 14:12
[2018-12-17 15:11] VITALS: BP 158/86; PULSE 77; RESP 18
--- NOTE | 2018-12-17 15:18 | CONS ---
Assessment/Plan Assessment/Plan Hospital Course (Demo Recall) No acute events per report Microbiology: Blood culture growing staph 1 set, repeat bld cx neg, urine culture negative CT of the chest and thorax revealed no evidence of pulmonary embolism. Please see full report Indwelling: Right chest Port-A-Cath, Shields catheter Allergies: ertapenem amoxicillin and sulfa Antimicrobials: Vancomycin cefepime Physical examination: This is a well-nourished well-developed middle-aged [place] man who is in no distress. Head atraumatic normocephalic sclera nonicteric. Neck is supple. Chest rise symmetrical, breath sounds diminished bases. Heart: S1-S2. Abdomen soft bowel sounds present extremities without cyanosis Assessment: 1. Acute hypoxemic respiratory failure secondary to large posterior mediastinal tumor, rule out aspiration 2. Bacteremia, rule out line sepsis 3. Mediastinal mass/liposarcoma, status post chemotherapy at [facility] 4. Hypertension 5. Pancytopenia Plan: Remains stable, repeat bld cx neg, ok dc home off abx when cleared by primary Consultation Date/Type/Reason Admit Date/Time Dec 12, 2018 at 06:34 Initial Consult Date 12/12/18 Type of Consult id Requesting Provider: DEBBIE BAKER MD Date/Time of Note DATE: 12/17/18 TIME: 15:17 Exam/Review of Systems Exam Vitals Vital Signs Date Temp Pulse Resp B/P (MAP) Pulse Ox O2 O2 Flow FiO2 Time Delivery Rate 12/17/18 77 18 158/86 15:11 (110) 12/17/18 98.1 92 14:00 12/17/18 21 13:25 12/17/18 Nasal 2.0 02:05 Cannula Intake and Output 12/16/18 12/16/18 12/17/18 1515:00 23:00 07:00 IntakeIntake Total 50 ml 550 ml 650 ml OutputOutput Total 395 ml 175 ml BalanceBalance 50 ml 155 ml 475 ml Results Result Diagram: 12/17/18 0453 12/17/18 0453 Results 24hrs Laboratory Tests Test 12/17/18 04:53 12/17/18 11:03 White Blood Count 2.3 #L Red Blood Count 3.94 L Hemoglobin 9.7 L Hematocrit 30.9 L Mean Corpuscular Volume 78.4 L Mean Corpuscular Hemoglobin 24.6 L Mean Corpuscular Hemoglobin Concent 31.4 L Red Cell Distribution Width 18.5 H Platelet Count 87 L Mean Platelet Volume 10.0 Immature Granulocytes % 7.900 H Neutrophils % Segmented Neutrophils % (Manual) 81 H Band Neutrophils % (Manual) 3 Lymphocytes % Lymphocytes % (Manual) 12 L Monocytes % Monocytes % (Manual) 4 Eosinophils % Basophils % Nucleated Red Blood Cells % 0.0 Immature Granulocytes # 0.180 H Neutrophils # Neutrophils # (Manual) 1.9 Band Neutrophils # 0.0 Lymphocytes (Manual) 0.2 L Lymphocytes # Monocytes # Monocytes # (Manual) 0.0 L Eosinophils # Basophils # Nucleated Red Blood Cells # Platelet Estimate DECREASED Poikilocytosis 2+ Anisocytosis 2+ Microcytosis 2+ Macrocytosis 1+ Ovalocytes 1+ Sodium Level 138 Potassium Level 4.8 Chloride Level 106 Carbon Dioxide Level 25 Anion Gap 7 Blood Urea Nitrogen 23 H Creatinine 0.83 Est Glomerular Filtrat Rate mL/min > 60 Glucose Level 139 Calcium Level 8.2 L Phosphorus Level 3.0 Magnesium Level 2.6 H Lab Scanned Report REFERENCE LAB Medications Medication Current Medications Enoxaparin Sodium (Lovenox) 30 mg DAILY SC Last administered on 12/17/18 09:30; Admin Dose 30 MG; Start 12/12/18 at 09:00 Vancomycin HCl (Vanco Iv Per Pharmacy) VANCOMYCIN PER PHARMACY PER PROTOCOL XX ; Start 12/12/18 at 13:00 Cefepime HCl 50 ml @ 100 mls/hr Q12 IVPB Last administered on 12/17/18 10:27; Admin Dose 100 MLS/HR; Start 12/12/18 at 13:00 Hydromorphone HCl (Dilaudid) 1 mg Q4H PRN IV SEVERE PAIN LEVEL 7-10 Last administered on 12/17/18 01:57; Admin Dose 1 MG; Start 12/14/18 at 18:00 Enalaprilat (Vasotec Iv) 1.25 mg Q3 PRN IV ELEVATED BLOOD PRESSURE Last administered on 12/15/18 13:40; Admin Dose 1.25 MG; Start 12/14/18 at 19:00 Diphenhydramine HCl (Benadryl) 25 mg Q6H PRN IV ALLERGIC REACTION Last administered on 12/15/18 01:09; Admin Dose 25 MG; Start 12/14/18 at 19:30 Ondansetron HCl (Zofran Inj) 4 mg Q6H PRN IV NAUSEA AND/OR VOMITING Last administered on 12/17/18 00:14; Admin Dose 4 MG; Start 12/14/18 at 19:30 Aspirin (Aspirin) 81 mg DAILY PO Last administered on 12/17/18 09:17; Admin Dose 81 MG; Start 12/16/18 at 09:00 Atenolol (Tenormin) 50 mg BID PO Last administered on 12/17/18 09:18; Admin Dose 50 MG; Start 12/15/18 at 17:00 Arformoterol Tartrate (Brovana (Neb)) 2 ml BID RESP THERAPY INH Last administered on 12/17/18 08:42; Admin Dose 2 ML; Start 12/15/18 at 20:00 Clonidine (Catapres) 0.1 mg BID PO Last administered on 12/17/18 09:17; Admin Dose 0.1 MG; Start 12/15/18 at 15:00 Oxycodone HCl (Oxycontin) 20 mg TID PO Last administered on 12/17/18 13:08; Admin Dose 20 MG; Start 12/15/18 at 17:00 Gabapentin (Neurontin) 300 mg TID PO Last administered on 12/17/18 13:08; Admin Dose 300 MG; Start 12/15/18 at 21:00 Budesonide (Pulmicort (Neb)) 0.5 mg BID RESP THERAPY INH Last administered on 12/17/18 08:43; Admin Dose 0.5 MG; Start 12/15/18 at 20:00 Lisinopril (Zestril) 20 mg BID PO Last administered on 12/17/18 09:16; Admin Dose 20 MG; Start 12/16/18 at 09:00 Albuterol (Proventil 0.083% (Neb)) 2.5 mg Q6H RESP THERAPY HHN Last administered on 12/17/18 13:23; Admin Dose 2.5 MG; Start 12/16/18 at 14:00 Pantoprazole (Protonix Tab) 40 mg DAILY@06 PO Last administered on 12/17/18 05:49; Admin Dose 40 MG; Start 12/17/18 at 06:00 Methylprednisolone Sodium Succinate (Solu-Medrol) 40 mg BID IV Last admin istered on 12/17/18at 09:18; Admin Dose 40 MG; Start 12/16/18 at 22:00 Vancomycin HCl 250 ml @ 125 mls/hr Q12H IVPB Last administered on 12/17/18at 13:12; Admin Dose 125 MLS/HR; Start 12/17/18 at 13:00 MAYELA TUCKER NP Dec 17, 2018 15:18
--- NOTE | 2018-12-17 19:06 | CONS ---
Assessment/Plan Assessment/Plan Assessment/Plan (Daily) Hospital Course (Demo Recall) 58 yo male with recurring liposarcoma, on chemo admitted with respiratory failure secondary to COPD exacerbation and pneumonia Interval hx: Pt is a/o. Eating soft mechanical diet. Denies dysphagia. Had BM yesterday. Continues to have mild nausea alleviated with Zofran. 1. 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 2. Respiratory failure secondary to COPD exacerbation and pneumonia, s/p extubation -resolved 3. Hypertension. 4. Dyslipidemia. 5. Transaminitis. -trending down -likely secondary to chemo or fatty liver 6. Fatty liver 7. Dysphagia secondary to mechanical compression of the esophagus by the tumor 8. Pancytopenia most probably related to chemotherapy Plan Soft mechanical diet with Aspiration precautions Monitor LFTs -trending down Monitor CBC Discussed with the was by the side of the patient Consultation Date/Type/Reason Admit Date/Time Dec 12, 2018 at 06:34 Initial Consult Date 12/12/18 Requesting Provider: DEBBIE BAKER MD Date/Time of Note DATE: 12/17/18 TIME: 19:05 24 HR Interval Summary Constitutional: no complaints, improved Exam/Review of Systems Exam Vitals Vital Signs Date Temp Pulse Resp B/P (MAP) Pulse Ox O2 O2 Flow FiO2 Time Delivery Rate 12/17/18 77 18 158/86 15:11 (110) 12/17/18 98.1 92 14:00 12/17/18 21 13:25 12/17/18 Nasal 2.0 02:05 Cannula Intake and Output 12/16/18 12/16/18 12/17/18 1515:00 23:00 07:00 IntakeIntake Total 50 ml 550 ml 650 ml OutputOutput Total 395 ml 175 ml BalanceBalance 50 ml 155 ml 475 ml Constitutional: alert, oriented, well developed Psych: no complaints, nl mood/affect Head: normocephalic, atraumatic Eyes: nl conjunctiva, EOMI, nl lids, nl sclera, PERRL ENMT: nl external ears & nose, nl lips & teeth, nl nasal mucosa & septum Neck: supple, non-tender Respiratory: clear to auscultation, normal air movement Cardiovascular: regular rate and rhythm, nl pulses Gastrointestinal: soft, nl liver, spleen, non-tender Musculoskeletal: nl extremities to inspection, nl gait and stance Extremities: normal pulses Neurological: B[employer]ICIAN II-XII intact, nl mental status, nl speech, nl strength Skin: nl turgor; No rash or lesions Lymph: nl lymph nodes Results Result Diagram: 12/17/18 0453 12/17/18 0453 Results 24hrs Laboratory Tests Test 12/17/18 04:53 12/17/18 11:03 White Blood Count 2.3 #L Red Blood Count 3.94 L Hemoglobin 9.7 L Hematocrit 30.9 L Mean Corpuscular Volume 78.4 L Mean Corpuscular Hemoglobin 24.6 L Mean Corpuscular Hemoglobin Concent 31.4 L Red Cell Distribution Width 18.5 H Platelet Count 87 L Mean Platelet Volume 10.0 Immature Granulocytes % 7.900 H Neutrophils % Segmented Neutrophils % (Manual) 81 H Band Neutrophils % (Manual) 3 Lymphocytes % Lymphocytes % (Manual) 12 L Monocytes % Monocytes % (Manual) 4 Eosinophils % Basophils % Nucleated Red Blood Cells % 0.0 Immature Granulocytes # 0.180 H Neutrophils # Neutrophils # (Manual) 1.9 Band Neutrophils # 0.0 Lymphocytes (Manual) 0.2 L Lymphocytes # Monocytes # Monocytes # (Manual) 0.0 L Eosinophils # Basophils # Nucleated Red Blood Cells # Platelet Estimate DECREASED Poikilocytosis 2+ Anisocytosis 2+ Microcytosis 2+ Macrocytosis 1+ Ovalocytes 1+ Sodium Level 138 Potassium Level 4.8 Chloride Level 106 Carbon Dioxide Level 25 Anion Gap 7 Blood Urea Nitrogen 23 H Creatinine 0.83 Est Glomerular Filtrat Rate mL/min > 60 Glucose Level 139 Calcium Level 8.2 L Phosphorus Level 3.0 Magnesium Level 2.6 H Lab Scanned Report REFERENCE LAB Medications Medication Current Medications Enoxaparin Sodium (Lovenox) 30 mg DAILY SC Last administered on 12/17/18at 09:30; Admin Dose 30 MG; Start 12/12/18 at 09:00 Vancomycin HCl (Vanco Iv Per Pharmacy) VANCOMYCIN PER PHARMACY PER PROTOCOL XX ; Start 12/12/18 at 13:00 Cefepime HCl 50 ml @ 100 mls/hr Q12 IVPB Last administered on 12/17/18at 10:27; Admin Dose 100 MLS/HR; Start 12/12/18 at 13:00 Hydromorphone HCl (Dilaudid) 1 mg Q4H PRN IV SEVERE PAIN LEVEL 7-10 Last administered on 12/17/18 01:57; Admin Dose 1 MG; Start 12/14/18 at 18:00 Enalaprilat (Vasotec Iv) 1.25 mg Q3 PRN IV ELEVATED BLOOD PRESSURE Last administered on 12/15/18 13:40; Admin Dose 1.25 MG; Start 12/14/18 at 19:00 Diphenhydramine HCl (Benadryl) 25 mg Q6H PRN IV ALLERGIC REACTION Last administered on 12/15/18 01:09; Admin Dose 25 MG; Start 12/14/18 at 19:30 Ondansetron HCl (Zofran Inj) 4 mg Q6H PRN IV NAUSEA AND/OR VOMITING Last administered on 12/17/18 00:14; Admin Dose 4 MG; Start 12/14/18 at 19:30 Aspirin (Aspirin) 81 mg DAILY PO Last administered on 12/17/18 09:17; Admin Dose 81 MG; Start 12/16/18 at 09:00 Atenolol (Tenormin) 50 mg BID PO Last administered on 12/17/18 09:18; Admin Dose 50 MG; Start 12/15/18 at 17:00 Arformoterol Tartrate (Brovana (Neb)) 2 ml BID RESP THERAPY INH Last administered on 12/17/18 08:42; Admin Dose 2 ML; Start 12/15/18 at 20:00 Clonidine (Catapres) 0.1 mg BID PO Last administered on 12/17/18 09:17; Admin Dose 0.1 MG; Start 12/15/18 at 15:00 Oxycodone HCl (Oxycontin) 20 mg TID PO Last administered on 12/17/18 13:08; Admin Dose 20 MG; Start 12/15/18 at 17:00 Gabapentin (Neurontin) 300 mg TID PO Last administered on 12/17/18 13:08; Admin Dose 300 MG; Start 12/15/18 at 21:00 Budesonide (Pulmicort (Neb)) 0.5 mg BID RESP THERAPY INH Last administered on 12/17/18 08:43; Admin Dose 0.5 MG; Start 12/15/18 at 20:00 Lisinopril (Zestril) 20 mg BID PO Last administered on 12/17/18 09:16; Admin Dose 20 MG; Start 12/16/18 at 09:00 Albuterol (Proventil 0.083% (Neb)) 2.5 mg Q6H RESP THERAPY HHN Last administered on 12/17/18 13:23; Admin Dose 2.5 MG; Start 12/16/18 at 14:00 Pantoprazole (Protonix Tab) 40 mg DAILY@06 PO Last administered on 12/17/18at 05:49; Admin Dose 40 MG; Start 12/17/18 at 06:00 Vancomycin HCl 250 ml @ 125 mls/hr Q12H IVPB Last administered on 12/17/18at 13:12; Admin Dose 125 MLS/HR; Start 12/17/18 at 13:00 Methylprednisolone Sodium Succinate (Solu-Medrol) 20 mg BID IV ; Start 12/17/18 at 21:00 ALEXYS BILL MD Dec 17, 2018 19:06
[2018-12-17 20:30] VITALS: BP 173/88; PULSE 85; RESP 19
--- NOTE | 2018-12-17 20:52 | CONS ---
Assessment/Plan Assessment/Plan Hospital Course (Demo Recall) IMPRESSION: 1. Abnormal echocardiogram, assess for acute coronary syndrome.-neg trop x 2/NL EF with LVDD by echo this admit. neg trop x 3 2. Tachycardia consistent with sinus tachycardia on admission in the setting of respiratory distress, now improved. 3. Hypertension-uncontrolled 4. Respiratory failure, now improved s/p extubation 5. History of hypertension with mainly reasonable BP with a single elevation 6. Anemia. 7. Acidosis. 8. BNP-increased 9. Neutropenia-now increased Recc: -Now on med-surg -s/p gentle lasix diuresis , follow volume status clsoely -Continue BB/clonidine and patient is s/p increase in zestril. F/U BP and if re=lizzy elevated will make further increases -Continue abx's/steroids/bronchodilators -Continue abx's/bronchodilators/steroids Consultation Date/Type/Reason Admit Date/Time Dec 12, 2018 at 06:34 Initial Consult Date 12/12/18 Type of Consult Cardiology Reason for Consultation HTN Requesting Provider: EDBBIE BAKER MD Date/Time of Note DATE: 12/17/18 TIME: 20:48 Exam/Review of Systems Vital Signs Vitals Vital Signs Date Temp Pulse Resp B/P (MAP) Pulse Ox O2 O2 Flow FiO2 Time Delivery Rate 12/17/18 80 18 92 21 19:49 12/17/18 158/86 15:11 (110) 12/17/18 98.1 14:00 12/17/18 Nasal 2.0 02:05 Cannula Intake and Output 12/16/18 12/16/18 12/17/18 1515:00 23:00 07:00 IntakeIntake Total 50 ml 550 ml 650 ml OutputOutput Total 395 ml 175 ml BalanceBalance 50 ml 155 ml 475 ml Exam Exam Review of Systems: CONSTITUTIONAL: No fevers, chills. PULMONARY: improved sob CARDIOVASCULAR: No chest pain/palpitations GASTROINTESTINAL: No nausea/vomiting. GENITOURINARY: No hematuria/dysuria. MUSCULOSKELETAL: No myagias/arthalgias. PSYCHIATRIC: The patient denies depression. NEUROLOGIC: No weakness Constitutional: alert, oriented Psych: no complaints Head: normocephalic ENMT: mucosa pink and moist Neck: supple, jvd (9 cm water) Respiratory: diminished breath sounds (at bases/B) Cardiovascular: regular rate and rhythm Gastrointestinal: soft, non-tender Musculoskeletal: muscle tone (normal) Extremities: edema (none) Labs Result Diagram: 12/17/183 12/17/18 0453 Results 24hrs Laboratory Tests Test 12/17/18 04:53 12/17/18 11:03 White Blood Count 2.3 #L Red Blood Count 3.94 L Hemoglobin 9.7 L Hematocrit 30.9 L Mean Corpuscular Volume 78.4 L Mean Corpuscular Hemoglobin 24.6 L Mean Corpuscular Hemoglobin Concent 31.4 L Red Cell Distribution Width 18.5 H Platelet Count 87 L Mean Platelet Volume 10.0 Immature Granulocytes % 7.900 H Neutrophils % Segmented Neutrophils % (Manual) 81 H Band Neutrophils % (Manual) 3 Lymphocytes % Lymphocytes % (Manual) 12 L Monocytes % Monocytes % (Manual) 4 Eosinophils % Basophils % Nucleated Red Blood Cells % 0.0 Immature Granulocytes # 0.180 H Neutrophils # Neutrophils # (Manual) 1.9 Band Neutrophils # 0.0 Lymphocytes (Manual) 0.2 L Lymphocytes # Monocytes # Monocytes # (Manual) 0.0 L Eosinophils # Basophils # Nucleated Red Blood Cells # Platelet Estimate DECREASED Poikilocytosis 2+ Anisocytosis 2+ Microcytosis 2+ Macrocytosis 1+ Ovalocytes 1+ Sodium Level 138 Potassium Level 4.8 Chloride Level 106 Carbon Dioxide Level 25 Anion Gap 7 Blood Urea Nitrogen 23 H Creatinine 0.83 Est Glomerular Filtrat Rate mL/min > 60 Glucose Level 139 Calcium Level 8.2 L Phosphorus Level 3.0 Magnesium Level 2.6 H Lab Scanned Report REFERENCE LAB Medications Medications Current Medications Enoxaparin Sodium (Lovenox) 30 mg DAILY SC Last administered on 12/17/18at 09:30; Admin Dose 30 MG; Start 12/12/18 at 09:00 Vancomycin HCl (Vanco Iv Per Pharmacy) VANCOMYCIN PER PHARMACY PER PROTOCOL XX ; Start 12/12/18 at 13:00 Cefepime HCl 50 ml @ 100 mls/hr Q12 IVPB Last administered on 12/17/18at 20:24; Admin Dose 100 MLS/HR; Start 12/12/18 at 13:00 Hydromorphone HCl (Dilaudid) 1 mg Q4H PRN IV SEVERE PAIN LEVEL 7-10 Last admini stered on 4/10/19at 01:57; Admin Dose 1 MG; Start 12/14/18 at 18:00 Enalaprilat (Vasotec Iv) 1.25 mg Q3 PRN IV ELEVATED BLOOD PRESSURE Last administered on 12/15/18 13:40; Admin Dose 1.25 MG; Start 12/14/18 at 19:00 Diphenhydramine HCl (Benadryl) 25 mg Q6H PRN IV ALLERGIC REACTION Last administered on 12/15/18 01:09; Admin Dose 25 MG; Start 12/14/18 at 19:30 Ondansetron HCl (Zofran Inj) 4 mg Q6H PRN IV NAUSEA AND/OR VOMITING Last administered on 12/17/18 00:14; Admin Dose 4 MG; Start 12/14/18 at 19:30 Aspirin (Aspirin) 81 mg DAILY PO Last administered on 12/17/18 09:17; Admin Dose 81 MG; Start 12/16/18 at 09:00 Atenolol (Tenormin) 50 mg BID PO Last administered on 12/17/18 20:17; Admin Do se 50 MG; Start 12/15/18 at 17:00 Arformoterol Tartrate (Brovana (Neb)) 2 ml BID RESP THERAPY INH Last administered on 12/17/18 19:48; Admin Dose 2 ML; Start 12/15/18 at 20:00 Clonidine (Catapres) 0.1 mg BID PO Last administered on 12/17/18 20:18; Admin Dose 0.1 MG; Start 12/15/18 at 15:00 Oxycodone HCl (Oxycontin) 20 mg TID PO Last administered on 12/17/18 20:12; Admin Dose 20 MG; Start 12/15/18 at 17:00 Gabapentin (Neurontin) 300 mg TID PO Last administered on 12/17/18 20:12; Admin Dose 300 MG; Start 12/15/18 at 21:00 Budesonide (Pulmicort (Neb)) 0.5 mg BID RESP THERAPY INH Last administered on 12/17/18 19:48; Admin Dose 0.5 MG; Start 12/15/18 at 20:00 Lisinopril (Zestril) 20 mg BID PO Last administered on 12/17/18 20:17; Admin Dose 20 MG; Start 12/16/18 at 09:00 Albuterol (Proventil 0.083% (Neb)) 2.5 mg Q6H RESP THERAPY HHN Last administered on 12/17/18at 19:47; Admin Dose 2.5 MG; Start 12/16/18 at 14:00 Pantoprazole (Protonix Tab) 40 mg DAILY@06 PO Last administered on 12/17/18at 05:49; Admin Dose 40 MG; Start 12/17/18 at 06:00 Vancomycin HCl 250 ml @ 125 mls/hr Q12H IVPB Last administered on 12/17/18at 13:12; Admin Dose 125 MLS/HR; Start 12/17/18 at 13:00 Methylprednisolone Sodium Succinate (Solu-Medrol) 20 mg BID IV Last administered on 12/17/18at 20:19; Admin Dose 20 MG; Start 12/17/18 at 21:00 JATIN DOBBS Dec 17, 2018 20:52
[2018-12-17] MEDS: DIPHENHYDRAMINE 50 MG INJ IV PRN (23:42)
[2018-12-18] VITALS (9 sets, daily range): BP systolic 169–192; BP diastolic 82–104; PULSE 68–99; RESP 16–20
[2018-12-18] MEDS: VANCOMYCIN 1 GM 250 ML IVPB SCH ×2 (00:03→13:06)
[2018-12-18] MEDS: ALBUTEROL 0.083% (NEB) 2.5 MG/3 ML AMP HHN SCH ×3 (01:21→13:00)
[2018-12-18] MEDS: HYDROmorphONE 1 MG/ML SYG IV PRN (04:59)
[2018-12-18] MEDS: PANTOPRAZOLE (EC) 40 MG TAB PO SCH (05:32)
[2018-12-18] MEDS: oxyCODONE (CR) 20 MG TAB [oxyCONTIN] PO SCH ×2 (05:49→13:05)
[2018-12-18] MEDS: GABAPENTIN 300 MG CAP PO SCH ×2 (05:49→13:04)
[2018-12-18] MEDS: ARFORMOTEROL TARTRATE 15MCG/2 ML AMP INH SCH (07:53)
[2018-12-18] MEDS: BUDESONIDE (NEB) 0.5MG/2ML AMP INH SCH (07:54)
[2018-12-18] MEDS: ASPIRIN 81 MG TAB PO SCH (08:09)
[2018-12-18] MEDS: LISINOPRIL 20 MG TAB PO SCH (08:10)
[2018-12-18] MEDS: ATENOLOL 50 MG TAB PO SCH (08:10)
[2018-12-18] MEDS: CEFEPIME 1GM/50 ML (PMX) 50 ML IVPB SCH (08:11)
[2018-12-18] MEDS: METHYLPREDNISOLONE 40 MG INJ IV SCH (08:12)
[2018-12-18] MEDS: ENOXAPARIN 30 MG/0.3 ML SYG SC SCH (08:13)
--- NOTE | 2018-12-18 09:00 | PN ---
DATE: 12/18/2018 SUBJECTIVE: The patient is stable, no events overnight. No fevers, chills, nausea, vomiting. OBJECTIVE: VITAL SIGNS: Blood pressure is 179/96, pulse 70, respirations 20, temperature 98.0. HEENT: Head is normocephalic. NECK: Supple. HEART: Regular rate. LUNGS: Show diminished breath sounds at the base. ABDOMEN: Soft, nontender to palpation without rebound or guarding. EXTREMITIES: Negative for clubbing, cyanosis, no edema. DERMATOLOGIC: No rashes. MUSCULOSKELETAL: No joint effusions. NEUROLOGIC: No change in exam. MEDICATIONS: The patient's medications have been reviewed. LABORATORY DATA: Has been reviewed. ASSESSMENT AND PLAN: 1. Nonoliguric acute kidney injury previously normal baseline creatinine. Etiology of acute kidney injury is secondary to hemodynamics. Renal function is improved. Continue current treatment plan an d support. Renally dose all meds. 2. Hypertension. Blood pressure remains elevated. Continue current blood pressure regimen. Adjust medications as needed. Continue pain control. 3. Respiratory failure. The patient is status post extubation, currently stable on nasal cannula, c ontinue. Continue bronchodilators. Continue steroids as needed. 4. Liposarcoma. Continue medical management. Follow up with oncology. The patient is status post chemotherapy. 5. Right pleural effusion secondary to pneumonia and liposarcoma. Continue to monitor. 6. Chronic obstructive pulmonary disease. Continue medical management. 7. Anemia. Monitor hemoglobin and hematocrit levels. 8. Mineral bone disorder, monitor calcium and phosphorus levels. 9. Dyslipidemia. Continue statin therapy. 10. Encephalopathy. Patient's mental status is improving. Continue to monitor. 11. Bacteremia. The patient has completed antibiotic course. Dictated By: KIP APARICIO DO NR/NTS Conf#: [id number] DID#: [id number] CC: DEBBIE BAKER MD; SONU WILHELM MD;*End*
--- NOTE | 2018-12-18 09:43 | CONS ---
Assessment/Plan Assessment/Plan Assessment/Plan (Daily) Assessment and recommendations; 1. Patient status post respiratory failure admitted for pneumonia and sepsis. 2. 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 3. Acute renal injury with normalization of renal function. 4. Pancytopenia. Likely chemotherapy-induced. 5. Mild CHF. 6. History of hypertension, and neuropathy. 7. Possibly some element of COPD as well. Continue current supportive care. Patient awaiting discharge. Has a follow-up appointment at [facility] with oncology center. Consultation Date/Type/Reason Admit Date/Time Dec 12, 2018 at 06:34 Initial Consult Date 12/12/18 Type of Consult Pulmonary/critical care Patient is a 58-year-old male who was brought into the hospital with shortness of breath. Patient was found to be in respiratory failure and had to be intubated by the ER physician. However no CPR was performed. By the time I saw him, patient is orally intubated and sedated. Did not appear to be in any distress. History has been obtained from medical records. Past medical history; 1. 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 It is unclear if the patient has had a recurrence. Apparently patient is currently on chemotherapy. 2. History of COPD 3. History of hypertension. Medications; reviewed. Allergies; as outlined above. Social history; history of smoking. Family history; not available. Occupational history; not available. Review of system; unable to be obtained. General exam; middle-aged male, orally intubated, sedated, currently in no distress. Requesting Provider: DEBBIE BAKER MD Date/Time of Note DATE: 12/18/18 TIME: 09:41 24 HR Interval Summary Free Text/Dictation Patient's condition is stable. Denies any shortness of breath, coughing, wheezing, any dysphagia. Any fever chills. General exam; middle-aged male, awake and alert. Sitting in a chair by bedside. Currently no distress. Exam/Review of Systems Exam Vitals Vital Signs Date Temp Pulse Resp B/P (MAP) Pulse Ox O2 O2 Flow FiO2 Time Delivery Rate 12/18/18 98.0 70 20 179/96 95 Mask 08:08 (123) 12/17/18 21 19:49 12/17/18 2.0 02:05 Intake and Output 12/17/18 12/17/1819 1515:00 23:00 07:00 IntakeIntake Total 650 ml 500 ml 250 ml BalanceBalance 650 ml 500 ml 250 ml Exam H EENT exam; supple neck, no JVD. No lymphadenopathy. Midline trachea. No thyromegaly. Pharynx is clear. No neck masses. Chest exam; diminished breath sounds like regular. Rest of the lung lobo are clear. S1-S2 audible, no murmurs. Regular rhythm. Abdomen exam; soft, protuberant. No organomegaly. Bowel sounds audible. Extremity exam; peripheral edema clubbing. ROAD MENDER exam; no focal deficit. Results Result Diagram: 12/18/18 0506 12/18/18 0506 Results 24hrs Laboratory Tests Test 12/17/18 11:03 12/18/18 05:06 Lab Scanned Report REFERENCE LAB White Blood Count 1.9 L Red Blood Count 3.99 L Hemoglobin 9.7 L Hematocrit 31.3 L Mean Corpuscular Volume 78.4 L Mean Corpuscular Hemoglobin 24.3 L Mean Corpuscular Hemoglobin Concent 31.0 L Red Cell Distribution Width 18.8 H Platelet Count 85 L Mean Platelet Volume 10.6 H Immature Granulocytes % 9.400 H Neutrophils % Segmented Neutrophils % (Manual) 53 Band Neutrophils % (Manual) 1 Lymphocytes % Lymphocytes % (Manual) 41 Monocytes % Monocytes % (Manual) 5 Eosinophils % Basophils % Nucleated Red Blood Cells % 0.0 Immature Granulocytes # 0.180 H Neutrophils # Neutrophils # (Manual) 1.0 L Band Neutrophils # 0.0 Lymphocytes (Manual) 0.7 L Lymphocytes # Monocytes # Monocytes # (Manual) 0.0 L Eosinophils # Basophils # Nucleated Red Blood Cells # Platelet Estimate DECREASED Giant Platelets 2 H Poikilocytosis 1+ Anisocytosis 2+ Microcytosis 2+ Ovalocytes 1+ Sodium Level 138 Potassium Level 4.7 Chloride Level 107 Carbon Dioxide Level 27 Anion Gap 4 L Blood Urea Nitrogen 20 Creatinine 0.78 Est Glomerular Filtrat Rate mL/min > 60 Glucose Level 101 Calcium Level 8.0 L Medications Medication Current Medications Enoxaparin Sodium (Lovenox) 30 mg DAILY SC Last administered on 12/18/18at 08:13; Admin Dose 30 MG; Start 12/12/18 at 09:00 Vancomycin HCl (Vanco Iv Per Pharmacy) VANCOMYCIN PER PHARMACY PER PROTOCOL XX ; Start 12/12/18 at 13:00 Cefepime HCl 50 ml @ 100 mls/hr Q12 IVPB Last administered on 12/18/18 08:11; Admin Dose 100 MLS/HR; Start 12/12/18 at 13:00 Hydromorphone HCl (Dilaudid) 1 mg Q4H PRN IV SEVERE PAIN LEVEL 7-10 Last administered on 12/18/18 04:59; Admin Dose 1 MG; Start 12/14/18 at 18:00 Enalaprilat (Vasotec Iv) 1.25 mg Q3 PRN IV ELEVATED BLOOD PRESSURE Last administered on 12/15/18 13:40; Admin Dose 1.25 MG; Start 12/14/18 at 19:00 Diphenhydramine HCl (Benadryl) 25 mg Q6H PRN IV ALLERGIC REACTION Last administered on 12/17/18 23:42; Admin Dose 25 MG; Start 12/14/18 at 19:30 Ondansetron HCl (Zofran Inj) 4 mg Q6H PRN IV NAUSEA AND/OR VOMITING Last administered on 12/17/18 00:14; Admin Dose 4 MG; Start 12/14/18 at 19:30 Aspirin (Aspirin) 81 mg DAILY PO Last administered on 12/18/18 08:09; Admin Dose 81 MG; Start 12/16/18 at 09:00 Atenolol (Tenormin) 50 mg BID PO Last administered on 12/18/18 08:10; Admin Dose 50 MG; Start 12/15/18 at 17:00 Arformoterol Tartrate (Brovana (Neb)) 2 ml BID RESP THERAPY INH Last administered on 12/18/18 07:53; Admin Dose 2 ML; Start 12/15/18 at 20:00 Clonidine (Catapres) 0.1 mg BID PO Last administered on 12/18/18 08:09; Admin Dose 0.1 MG; Start 12/15/18 at 15:00 Oxycodone HCl (Oxycontin) 20 mg TID PO Last administered on 12/18/18 05:49; Ad min Dose 20 MG; Start 12/15/18 at 17:00 Gabapentin (Neurontin) 300 mg TID PO Last administered on 12/18/18 05:49; Admin Dose 300 MG; Start 12/15/18 at 21:00 Budesonide (Pulmicort (Neb)) 0.5 mg BID RESP THERAPY INH Last administered on 12/18/18 07:54; Admin Dose 0.5 MG; Start 12/15/18 at 20:00 Lisinopril (Zestril) 20 mg BID PO Last administered on 12/18/18 08:10; Admin Dose 20 MG; Start 12/16/18 at 09:00 Albuterol (Proventil 0.083% (Neb)) 2.5 mg Q6H RESP THERAPY HHN Last administered on 12/18/18 07:37; Admin Dose 2.5 MG; Start 12/16/18 at 14:00 Pantoprazole (Protonix Tab) 40 mg DAILY@06 PO Last administered on 12/18/18 05:32; Admin Dose 40 MG; Start 12/17/18 at 06:00 Vancomycin HCl 250 ml @ 125 mls/hr Q12H IVPB Last administered on 12/18/18 00:03; Admin Dose 125 MLS/HR; Start 12/17/18 at 13:00 Methylprednisolone Sodium Succinate (Solu-Medrol) 20 mg BID IV Last administered on 12/18/18 08:12; Admin Dose 20 MG; Start 12/17/18 at 21:00 LAINEY TRACY Dec 18, 2018 09:43
--- NOTE | 2018-12-18 13:07 | CONS ---
Assessment/Plan Assessment/Plan Hospital Course (Demo Recall) No acute events per report, alert, feels good, wants to go home Microbiology: Blood culture growing staph 1 set, repeat bld cx neg, urine culture negative CT of the chest and thorax revealed no evidence of pulmonary embolism. Please see full report Indwelling: Right chest Port-A-Cath, Shields catheter Allergies: ertapenem amoxicillin and sulfa Antimicrobials: Vancomycin cefepime Physical examination: This is a well-nourished well-developed middle-aged [place] man who is in no distress. Head atraumatic normocephalic sclera nonicteric. Neck is supple. Chest rise symmetrical, breath sounds diminished bases. Heart: S1-S2. Abdomen soft bowel sounds present extremities without cy anosis Assessment: 1. Acute hypoxemic respiratory failure secondary to large posterior mediastinal tumor, rule out aspiration 2. Bacteremia, rule out line sepsis 3. Mediastinal mass/liposarcoma, status post chemotherapy at [facility] 4. Hypertension 5. Pancytopenia Plan: Remains stable, dc abx and observe DW pt/ DW staff Consultation Date/Type/Reason Admit Date/Time Dec 12, 2018 at 06:34 Initial Consult Date 12/12/18 Type of Consult id Requesting Provider: DEBBIE BAKER MD Date/Time of Note DATE: 12/18/18 TIME: 13:06 Exam/Review of Systems Exam Vitals Vital Signs Date Temp Pulse Resp B/P (MAP) Pulse Ox O2 O2 Flow FiO2 Time Delivery Rate 12/18/18 98.0 70 20 179/96 95 Mask 08:08 (123) 12/18/18 21 07:37 12/17/18 2.0 02:05 Intake and Output 12/17/18 12/17/18 12/18/18 1515:00 23:00 07:00 IntakeIntake Total 650 ml 500 ml 250 ml BalanceBalance 650 ml 500 ml 250 ml Results Result Diagram: 12/18/18 0506 12/18/18 0506 Results 24hrs Laboratory Tests Test 12/18/18 05:06 White Blood Count 1.9 L Red Blood Count 3.99 L Hemoglobin 9.7 L Hematocrit 31.3 L Mean Corpuscular Volume 78.4 L Mean Corpuscular Hemoglobin 24.3 L Mean Corpuscular Hemoglobin Concent 31.0 L Red Cell Distribution Width 18.8 H Platelet Count 85 L Mean Platelet Volume 10.6 H Immature Granulocytes % 9.400 H Neutrophils % Segmented Neutrophils % (Manual) 53 Band Neutrophils % (Manual) 1 Lymphocytes % Lymphocytes % (Manual) 41 Monocytes % Monocytes % (Manual) 5 Eosinophils % Basophils % Nucleated Red Blood Cells % 0.0 Immature Granulocytes # 0.180 H Neutrophils # Neutrophils # (Manual) 1.0 L Band Neutrophils # 0.0 Lymphocytes (Manual) 0.7 L Lymphocytes # Monocytes # Monocytes # (Manual) 0.0 L Eosinophils # Basophils # Nucleated Red Blood Cells # Platelet Estimate DECREASED Giant Platelets 2 H Poikilocytosis 1+ Anisocytosis 2+ Microcytosis 2+ Ovalocytes 1+ Sodium Level 138 Potassium Level 4.7 Chloride Level 107 Carbon Dioxide Level 27 Anion Gap 4 L Blood Urea Nitrogen 20 Creatinine 0.78 Est Glomerular Filtrat Rate mL/min > 60 Glucose Level 101 Calcium Level 8.0 L Medications Medication Current Medications Enoxaparin Sodium (Lovenox) 30 mg DAILY SC Last administered on 12/18/18 08:13; Admin Dose 30 MG; Start 12/12/18 at 09:00 Vancomycin HCl (Vanco Iv Per Pharmacy) VANCOMYCIN PER PHARMACY PER PROTOCOL XX ; Start 12/12/18 at 13:00 Cefepime HCl 50 ml @ 100 mls/hr Q12 IVPB Last administered on 12/18/18 08:11; Admin Dose 100 MLS/HR; Start 12/12/18 at 13:00 Hydromorphone HCl (Dilaudid) 1 mg Q4H PRN IV SEVERE PAIN LEVEL 7-10 Last administered on 12/18/18 04:59; Admin Dose 1 MG; Start 12/14/18 at 18:00 Enalaprilat (Vasotec Iv) 1.25 mg Q3 PRN IV ELEVATED BLOOD PRESSURE Last administered on 12/15/18 13:40; Admin Dose 1.25 MG; Start 12/14/18 at 19:00 Diphenhydramine HCl (Benadryl) 25 mg Q6H PRN IV ALLERGIC REACTION Last administered on 12/17/18 23:42; Admin Dose 25 MG; Start 12/14/18 at 19:30 Ondansetron HCl (Zofran Inj) 4 mg Q6H PRN IV NAUSEA AND/OR VOMITING Last administered on 12/17/18 00:14; Admin Dose 4 MG; Start 12/14/18 at 19:30 Aspirin (Aspirin) 81 mg DAILY PO Last administered on 12/18/18 08:09; Admin Dose 81 MG; Start 12/16/18 at 09:00 Atenolol (Tenormin) 50 mg BID PO Last administered on 12/18/18 08:10; Admin Dose 50 MG; Start 12/15/18 at 17:00 Arformoterol Tartrate (Brovana (Neb)) 2 ml BID RESP THERAPY INH Last administered on 12/18/18 07:53; Admin Dose 2 ML; Start 12/15/18 at 20:00 Clonidine (Catapres) 0.1 mg BID PO Last administered on 12/18/18 08:09; Admin Dose 0.1 MG; Start 12/15/18 at 15:00 Oxycodone HCl (Oxycontin) 20 mg TID PO Last administered on 12/18/18 05:49; Admin Dose 20 MG; Start 12/15/18 at 17:00 Gabapentin (Neurontin) 300 mg TID PO Last administered on 12/18/18 05:49; Admin Dose 300 MG; Start 12/15/18 at 21:00 Budesonide (Pulmicort (Neb)) 0.5 mg BID RESP THERAPY INH Last administered on 12/18/18 07:54; Admin Dose 0.5 MG; Start 12/15/18 at 20:00 Lisinopril (Zestril) 20 mg BID PO Last administered on 12/18/18 08:10; Admin Dose 20 MG; Start 12/16/18 at 09:00 Albuterol (Proventil 0.083% (Neb)) 2.5 mg Q6H RESP THERAPY HHN Last administered on 12/18/18 13:00; Admin Dose 2.5 MG; Start 12/16/18 at 14:00 Pantoprazole (Protonix Tab) 40 mg DAILY@06 PO Last administered on 12/18/18 05:32; Admin Dose 40 MG; Start 12/17/18 at 06:00 Vancomycin HCl 250 ml @ 125 mls/hr Q12H IVPB Last administered on 12/18/18 00:03; Admin Dose 125 MLS/HR; Start 4/10/19 at 13:00 Methylprednisolone Sodium Succinate (Solu-Medrol) 20 mg BID IV Last administered on 12/18/18at 08:12; Admin Dose 20 MG; Start 12/17/18 at 21:00 MAYELA TUCKER NP Dec 18, 2018 13:07
--- NOTE | 2018-12-18 13:08 | RADRPT ---
Vent Rate: 71 bpm RR Interval: 844 msec AR Interval: 150 msec QRS Duration: 85 msec QT Interval: 457 msec QTC Interval: 497 msec P-R-T Hume: 43 - 18 - 84 degrees Sinus rhythm...normal P axis, V-rate 50- 99 Probable left atrial enlargement...P >50mS, <-0.10mV V1 Probable LVH with secondary repol abnrm...multiple LVH criteria Borderline prolonged QT interval...QTc >475mS Electronically Signed By: Yomi Camejo
[2018-12-18] MEDS: ENALAPRILAT 1.25 MG INJ IV PRN (13:18)
[2018-12-18] MEDS ORDERED: LORAZEPAM 0.5 MG TAB PO STA (15:52)
[2018-12-18] MEDS ORDERED: LISI-471 PO (16:06)
[2018-12-18] MEDS ORDERED: PRED20TA PO (16:06)
[2018-12-18] MEDS ORDERED: FILGRASTIM 480 MCG INJ SC ONE (17:30)
[2018-12-18] MEDS ORDERED: HEPARIN (100 UNITS/ML) 5 ML SYG CATHETER ONE (18:00)
--- NOTE | 2018-12-21 22:49 | DS ---
Date/Time of Note Date/Time of Note DATE: 12/21/18 TIME: 22:42 Discharge Summary Admission/Discharge Info Admit Date/Time Dec 12, 2018 at 06:34 Discharge Date/Time Dec 18, 2018 at 18:14 Patient Condition: Stable Hx of Present Illness The patient is a 58-year-old male with past history of liposarcoma for which pt got chemo at [facility] 3 weeks ago, hx of hypertension, dyslipidemia, COPD. Pt presented to ER with acute dyspnea. According to pt's , pt woke up and had trouble breathing; therefore the called 911. He smokes and does use oxygen as needed at home. Pt unable to provide any history, the history initially obtained from the trolley wire installer. He is unarousable, unable to protect his airway. Pt was intubated, placed on vent support and admitted to ICU. Hospital Course -Acute hypoxemic and hypercapnic respiratory failure requiring intubation, Diane ology of respiratory failure likely related to a combination of proximal bronchial obstruction 2/2 tumor and acute COPD exacerbation +/- CHF. Patient is currently extubated on supplemental oxygen. Dr. Medina is following in pulmonology consultation. -Mediastinal Mass--Liposarcoma. S/p chemotherapy at [facility]. -Dysphagia secondary to mechanical compression of the esophagus by the tumor -Pancytopenia most probably related to chemotherapy. Continue neutropenic precaution. S/p Neupogen. -Hypertensive urgency, resolved. Dr. Navas is following in cardiology consultation. -Stage I diastolic dysfunction with ejection fraction of 55% -Bacteremia, continue antibiotics per ID. Dr. Grayson is following in infection disease consultation. -Transaminitis -Anxiety Plan of care discussed with Dr. James [place] Meds Active Scripts Lisinopril* (Lisinopril*) 20 Mg Tablet, 20 MG PO BID for 30 Days, TAB Prov:TERA GREEN 12/18/18 Prednisone* (Prednisone*) 20 Mg Tab, 40 MG PO DAILY for 5 Days, TAB Prov:TERA GREEN 12/18/18 Reported Medications Atorvastatin Calcium (Atorvastatin Calcium) 10 Mg Tablet, 10 MG PO QHS, #30 TAB 07/27/18 Salmeterol Xinaf/Fluticasone* (Advair*) 250-50 Diskus Inhaler, 1 INH INHALATION BID, #1 INHALER 07/27/18 Albuterol Sulfate* (Ventolin HFA*) 18 Gm Hfa.aer.ad, 2 PUFF INHALATION Q6H PRN for WHEEZING AND SOB, #1 INHALER 07/27/18 Aspirin* (Aspirin* Chew) 81 Mg Tab.chew, 81 MG PO DAILY, TAB.CHEW 07/27/18 Gabapentin* (Gabapentin*) 300 Mg Capsule, 600 MG PO QID, #180 CAP 07/27/18 Oxycodone Hcl* (Oxycontin*) 40 Mg Tab.er.12h, 40 MG PO Q12 PRN for SEVERE PAIN LEVEL 7-10, TAB 07/27/18 Atenolol* (Atenolol*) 50 Mg Tablet, 50 MG PO BID, #30 TAB 07/27/18 Discontinued Reported Medications Losartan Potassium* (Losartan Potassium*) 50 Mg Tablet, 50 MG PO BID, TAB 07/27/18 Discontinued Scripts Hydralazine Hcl* (Apresoline*) 50 Mg Tab, 50 MG PO Q8, #90 TAB Prov:TERA GREEN 07/30/18 Levofloxacin* (Levofloxacin*) 500 Mg Tablet, 500 MG PO DAILY for 7 Days, TAB Prov:TERA GREEN 07/30/18 Follow-up Plan d/c if SBP < 170, Follow-up with oncologist to at [facility] this week. Primary Care Provider Not On Staff Doctor Time spent on discharge: > 30 minutes TERA GREEN Dec 21, 2018 22:49
== END 2018-12-18 18:14 | disposition home or self-care (01) | DRG 208 ==
LOC: E/R 04:46 → ICU 06:34 → MS1 12-17 00:41
PROVIDERS: ADMIT Internal Medicine; ATTEND Internal Medicine
PROC: 5A1945Z Respiratory Ventilation, 24-96 Consecutive Hours (ICD-10-PCS; principal; 2018-12-12)
PROC: 0BH17EZ Insertion of Endotracheal Airway into Trachea, Via Natural or Artificial Opening (ICD-10-PCS; 2018-12-12)
DX: J96.01 Acute respiratory failure with hypoxia (principal); J18.9 Pneumonia, unspecified organism; G92 Toxic encephalopathy; D61.810 Antineoplastic chemotherapy induced pancytopenia; C38.2 Malignant neoplasm of posterior mediastinum; E87.2 Acidosis; J90 Pleural effusion, not elsewhere classified; J44.1 Chronic obstructive pulmonary disease with (acute) exacerbation; N17.9 Acute kidney failure, unspecified; R78.81 Bacteremia; J96.02 Acute respiratory failure with hypercapnia; E78.5 Hyperlipidemia, unspecified; F41.9 Anxiety disorder, unspecified; F17.210 Nicotine dependence, cigarettes, uncomplicated; G62.9 Polyneuropathy, unspecified; I16.0 Hypertensive urgency; I11.0 Hypertensive heart disease with heart failure; I50.9 Heart failure, unspecified; K76.0 Fatty (change of) liver, not elsewhere classified; R13.19 Other dysphagia; R00.0 Tachycardia, unspecified; R74.0 Nonspecific elevation of levels of transaminase and lactic acid dehydrogenase [LDH]; T45.1X5A Adverse effect of antineoplastic and immunosuppressive drugs, initial encounter; Z90.2 Acquired absence of lung [part of]; Z99.81 Dependence on supplemental oxygen; Z91.14 Patient's other noncompliance with medication regimen
CPT/HCPCS: 31500; 36415; 36600; 70450; 71045; 71275; 80048; 80053; 80076; 80202; 81001; 81003; 82043; 82550; 82553; 82803; 82962; 83605; 83735; 83880; 84100; 84155; 84300; 84484; 85025; 85610; 85730; 86704; 86709; 86803; 87081; 87086; 87340; 92610; 93005; 93306; 94002; 94003; 94640; 94664; 94770; 96365; 96375; 97116; 97161; C9113; J0360; J0692; J1170; J1200; J1642; J1650; J1940; J2270; J2405; J2543; J2920; J3010; J3370; J7030; J7050; Q9967